=== PATIENT | male | born 1945 | race Caucasian/White ===

== ENCOUNTER 2023-03-06 13:30 | Outpatient (OUT) | payer MEDICARE, SELFPAY ==
[2023-03-06 14:09] LABS: Anion Gap 12.2; BUN Creatinine Ratio 10.2; Carbon Dioxide 28.2 mmol/L (21.0-32.0); Chloride 103 mmol/L (98-107); Estimated GFR (African America 52 (>=60); Estimated GFR (Non-African Ame 43 (>=60); Glucose 102 mg/dL (74-106); Potassium 4.4 mmol/L (3.5-5.1); Sodium 139 mmol/L (136-145)
== END 2023-03-06 13:31 | disposition home or self-care (01) ==
LOC: LAB 13:33
PROVIDERS: PCP Internal Medicine; Visit Provider Internal Medicine
DX: N18.32 Chronic kidney disease, stage 3b (principal)
CPT/HCPCS: 36415; 80048

== ENCOUNTER 2023-09-04 09:05 | Outpatient (OUT) | payer MEDICARE, SELFPAY ==
[2023-09-04 10:31] LABS: Basophils Absolute Auto 0.1 10^3/uL (0.0-0.1); Basophils Percent Auto 1.1 % (0.2-2.0); Eosinophils Absolute Auto 0.2 10^3/uL (0.0-0.7); Eosinophils Percent Auto 2.7 % (0.9-7.0); Hematocrit 46.4 % (42.0-54.0); Hemoglobin 15.2 g/dL (14.0-18.0); Immature Granulocytes Abs Auto 0.01 10^3/uL (0.00-0.03); Immature Granulocytes Pct Auto 0.1 % (0.0-0.5); Lymphocytes Percent Auto 28.1 % (20.5-60.0); Mean Corpuscular HGB Conc 32.8 g/dL (29.9-35.2); Mean Corpuscular Hemoglobin 29.2 pg (25.9-34.0); Mean Corpuscular Volume 89.1 fL (80.0-94.0); Mean Platelet Volume 9.6 fL (9.5-13.5); Monocytes Absolute Auto 0.7 10^3/uL (0.3-0.8); Platelet Count 200 10^3/uL (150-450); Red Blood Count 5.21 10^6/uL (4.70-6.10); Red Cell Distribution Width 13.8 % (11.0-15.0)
[2023-09-04 11:14] LABS: Anion Gap 16.6; Carbon Dioxide 23.6 mmol/L (21.0-32.0); Chloride 106 mmol/L (98-107); Potassium 4.2 mmol/L (3.5-5.1); Sodium 142 mmol/L (136-145)
[2023-09-04 11:15] LABS: Alanine Aminotransferase 36 U/L (16-63); Albumin Globulin Ratio 0.9; Albumin Level 3.5 g/dL (3.4-5.0); Alkaline Phosphatase 120 U/L (46-116); Aspartate Amino Transferase 21 U/L (15-37); BUN Creatinine Ratio 11.5; Bilirubin Total 1.2 mg/dL (0.2-1.0); Calcium 9.3 mg/dL (8.5-10.1); Cholesterol 116 mg/dL (<=200); Estimated GFR (African America 42 (>=60); Estimated GFR (Non-African Ame 34 (>=60); Globulin 3.8 g/dL; Glucose 115 mg/dL (74-106); Total Protein 7.3 g/dL (6.4-8.2); Triglycerides 169 mg/dL (<=150); VLDL CHOLESTEROL 33.8 mg/dL
[2023-09-04 11:16] LABS: Chol HDL Ratio 3.5; HDL Cholesterol 33 mg/dL (40-60); Thyroid Stimulating Hormone 0.864 uIU/mL (0.358-3.740)
== END 2023-09-04 09:06 | disposition home or self-care (01) ==
LOC: LAB 09:09
PROVIDERS: PCP Internal Medicine; Visit Provider Internal Medicine
DX: N18.32 Chronic kidney disease, stage 3b (principal); I25.10 Atherosclerotic heart disease of native coronary artery without angina pectoris; E06.3 Autoimmune thyroiditis; Z12.5 Encounter for screening for malignant neoplasm of prostate; I12.9 Hypertensive chronic kidney disease with stage 1 through stage 4 chronic kidney disease, or unspecified chronic kidney disease
CPT/HCPCS: 36415; 80053; 80061; 84443; 85025; G0103

== ENCOUNTER 2023-10-26 09:08 | Outpatient (OUT) | payer MEDICARE, SELFPAY ==
[2023-10-26 10:55] LABS: Bilirubin Urine NEGATIVE (NEGATIVE); Blood Urine NEGATIVE (NEGATIVE); Clarity Urine CLEAR (CLEAR); Color Urine LT. YELLOW (YELLOW); Glucose Urine UA NEGATIVE (NEGATIVE); Ketones Urine NEGATIVE (NEGATIVE); Leukocyte Esterase Urine NEGATIVE (NEGATIVE); Nitrite Urine NEGATIVE (NEGATIVE); Protein Urine NEGATIVE (NEG/TRACE); Specific Gravity Urine 1.025 (1.005-1.025); Urobilinogen Urine 0.2 EU/dL (0.2-1.0)
[2023-10-26 11:41] LABS: Anion Gap 14.8; BUN Creatinine Ratio 20.1; Calcium 9.1 mg/dL (8.5-10.1); Carbon Dioxide 24.4 mmol/L (21.0-32.0); Chloride 106 mmol/L (98-107); Estimated GFR (African America 48 (>=60); Estimated GFR (Non-African Ame 40 (>=60); Glucose 114 mg/dL (74-106); Potassium 4.2 mmol/L (3.5-5.1); Sodium 141 mmol/L (136-145)
[2023-10-26 14:34] LABS: Total Protein Urine Random 27.5 mg/dL (<=11.9)
== END 2023-10-26 09:09 | disposition home or self-care (01) ==
LOC: LAB 09:10
PROVIDERS: PCP Internal Medicine; Visit Provider Internal Medicine
DX: N18.32 Chronic kidney disease, stage 3b (principal)
CPT/HCPCS: 36415; 80048; 81003; 82570; 84156

== ENCOUNTER 2024-02-20 08:53 | Outpatient (OUT) | payer MEDICARE, SELFPAY ==
--- OUTSIDE RECORDS SUMMARY | 2024-02-20 09:17 | XMS_ITS | CCD ---
Author Organization [facility] Partnership [facility] Care Team Providers Care License Examiner Name Role Phone DR JACOB HOOK Primary Care Unavailable ANNELIESE, DR HEATHER Corona Admitting Unavailable ANNELIESE, DR HEATHER Corona Consulting Unavailable ANNELIESE, DR HEATHER Corona Attending Unavailable TAMIKA SANTIZO Consulting Unavailable WILD, DR GREENE Admitting Unavailable WILD, DR GREENE Primary Care Unavailable WILD, DR GREENE Consulting Ariela HOOK, DR GREENE Attending Jacob Blanco Unavailable Medications Current Medications Medication Drug Class(es) Dates Sig (Normalized) Sig (Original) atorvastatin 40 mg oral tablet (10 sources) HMG-CoA Reductase Inhibitor Start: 09-03-2023 take 40 mg by mouth once daily Atorvastatin Active 40 MG PO Daily September 03, 2023 12:00am take 1 tablet by chitra th every twenty-four hours Atorvastatin Calcium 40 MG 1 tablet Oral ly Once a day for 90 days Active azithromycin 250 mg oral tablet (4 sources) Macrolide Antimicrobial Start: 03-26-2023 Azithromycin 250 MG as directed Orally daily for 5 days Mar, Active levothyroxine sodium 0.137 mg oral capsule (10 sources) l-Thyroxine Start: 09-03-2023 take 137 ug by mouth once daily Levothyroxine Active 137 MCG PO Daily September 03, 2023 12:00am take 1 tablet by mouth once criss y Levothyroxine Sodium 137 MCG TAKE 1 TABLET BY MOUTH ONCE DAILY ON AN EMPTY STOMACH for 90 Active take 1 tablet by mouth once criss y Levothyroxine Sodium 137 MCG TAKE 1 TABLET BY MOUTH ONCE DAILY ON AN EMPTY STOMACH for 90 Active losartan potassium 25 mg oral tablet (10 sources) Angiotensin 2 Receptor Fernando Start: 09-03-2023 take 25 mg by mouth twice daily Losartan Active 25 MG PO Twice daily September 03, 2023 12:00am take 1 tablet by mouth twice lenore ly Losartan Potassium 25 MG 1 tablet Orally twice daily for 90 days Active take 1 tablet by chitra th every twenty-four hours Losartan Potassium 25 MG 1 tablet Orally Once a day for 90 days Active 24 hr metoprolol succinate 25 mg extended release oral tablet (10 sources) beta-Adrenergic Fernando Start: 09-03-2023 take 25 mg by mouth once daily Metoprolol Succinate Active 25 MG PO Daily September 03, 2023 12:00am take 1 tablet by mouth once criss y Metoprolol Succinate ER 25 MG Take 1 tablet by mouth once daily Active sildenafil 20 mg oral tablet (10 sources) Phosphodiesterase 5 Inhibitor Start: 09-03-2023 take 40 mg by mouth once daily Sildenafil (Pulm.Hypertension) Active 40 MG PO Daily September 03, 2023 12:00am Sildenafil Citra te 20 MG TAKE 2 TABLETS BY MOUTH NEEDED FOR ERECTILE DYSFUNCTION FOR 30 DAYS for 30 Active take 1 tablet by chitra th every twenty-four hours Sildenafil Citrate 20 MG 1 tablet Orally Once a day Active Completed/Discontinued Medications Medication Drug Class(es) Dates Sig (Normalized) Sig (Original) Suprep Bowel Prep Kit 17.5-3.13-1.6 GM/180ML (18 sources) Start: 07-22-2018 Suprep Bowel Prep Kit 17.5-3.13-1.6 GM/180ML 177ml bottle at 4pm, 177ml bottle at 11pm the day prior to colonosopy Orally Twice a day for 1 day(s) Jul, Not-Taking/PRN Start: 07-22-2018 Suprep Bowel P rep Kit 17.5-3.13-1.6 GM/180ML 177ml bottle at 4pm, 177ml bottle at 11pm the day prior to colonosopy Orally Twice a day for 1 day(s) Jul, Not-Taking Start: 07-08-2018 Suprep Bowel P rep Kit 17.5-3.13-1.6 GM/180ML 177ml bottle at 4pm, 177ml bottle at 11pm the day prior to colonoscopy Orally Twice a day for 1 day(s) Jun, Not-Taking/PRN Start: 07-08-2018 Suprep Bowel P rep Kit 17.5-3.13-1.6 GM/180ML 177ml bottle at 4pm, 177ml bottle at 11pm the day prior to colonoscopy Orally Twice a day for 1 day(s) Jun, Not-Taking Problems Active Problems Problem Classification Problem Date Documented Date Episodic/Chronic Chronic kidney disease (11 sources) Chronic kidney disease stage 3B ; Translations: [Stage 3b chronic kidney disease] 09-03-2023 Chronic Coronary atherosclerosis and other heart disease (13 sources) Coronary arteriosclerosis; Translations: [Atherosclerotic heart disease of hughes coronary artery without angina pectoris] Chronic Disorders of lipid metabolism (20 sources) Pure hypercholesterolemia, unspecified; Translations: [Pure hypercholesterolemia] Onset: 08-29-2022 Chronic Esophageal disorders (6 sources) Gastro-esophageal reflux disease with esophagitis; Translations: [Gastroesophageal reflux disease with esophagitis without hemorrhage] 09-08-2023 Chronic Essential hypertension (16 sources) Essential (primary) hypertension; Translations: [Essential hypertension] Onset: 09-04-2022 Chronic Genitourinary symptoms and ill-defined conditions (2 sources) Nocturia Episodic Hyperplasia of prostate (13 sources) Nocturia due to benign prostatic hypertrophy; Translations: [Benign prostatic hyperplasia with lower urinary tract symptoms] Chronic Nonspecific chest pain (9 sources) Precordial pain; Translations: [Precordial pain] Episodic Other aftercare (2 sources) 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; Translations: [[facility] CURRENT DRUG THERAPY] Onset: 09-04-2022 Episodic Other connective tissue disease (9 sources) Olecranon bursitis; Translations: [Olecranon bursitis, left elbow] Episodic Other connective tissue disease (1 source) Personal history of other diseases of the musculoskeletal system and connective tissue Episodic Other ear and sense organ disorders (1 source) Impacted cerumen, right ear Episodic Other screening for suspected conditions (not mental disorders or infectious disease) (4 sources) Encounter for screening for malignant neoplasm of prostate; Translations: [Patient encounter status] Onset: 09-04-2022 Episodic Other upper respiratory infections (1 source) Acute maxillary sinusitis, unspecified Episodic Spondylosis; intervertebral disc disorders; other back problems (9 sources) Pain in thoracic spine; Translations: [Pain in thoracic spine] Episodic Substance-related disorders (9 sources) Tobacco user; Translations: [Nicotine dependence, cigarettes, in remission] Chronic Thyroid disorders (20 sources) Autoimmune thyroiditis; Translations: [Autoimmune thyroiditis] Onset: 09-04-2022 Chronic Past or Other Problems Problem Classification Problem Date Documented Date Episodic/Chronic Abdominal pain (3 sources) Lower abdominal pain, unspecified; Translations: [LOWER ABDOMINAL PAIN UNSPECIFIED] Onset: 05-06-2022 Episodic Calculus of urinary tract (1 source) Personal history of urinary calculi; Translations: [PERSONAL HISTORY OF URINARY CALCULI] Onset: 05-10-2022 Episodic Chronic kidney disease (3 sources) Chronic kidney disease Esophageal disorders (5 sources) Esophageal disorders; Translations: [Gastroesophageal reflux disease with esophagitis without hemorrhage] Other diseases of kidney and ureters (1 source) Hydronephrosis with renal and ureteral calculous obstruction; Translations: [HYDRONPHROS RENL AND URETRL CALCUL OBST] Onset: 05-10-2022 Episodic Results Test Name Value Interpretation Reference Range Facility Basophils Auto (Bld) [#/Vol] on 09-04-2023 Basophils (Bld) [#/Vol] 0.1 10 3/uL 0.0-0.1 [facility] Basophils/100 WBC Auto (Bld) on 09-04-2023 Basophils/100 WBC (Bld) 1.1 % 0.2-2.0 [facility] Cholesterol in LDL Calc [Mas s/Vol]on 09-04-2023 Cholesterol in LDL [Mass/Vol] 50.0 mg/dL [facility] Comment on above: <100 mg/dl [id number] 0-129 mg/dl NEAR OR ABOVE [id number] mg/dl BORDERLINE [id number] mg/dl HIGH>190 mg/dl VERY HIGH Cholesterol in VLDL Calc [Ma ss/Vol]on 09-04-2023 Cholesterol in VLDL [Mass/Vol] 33.8 mg/dL [facility] Eosinophils/100 WBC Auto (Bl d)on 09-04-2023 Eosinophils/100 WBC (Bld) 2.7 % 0.9-7.0 [facility] Erythrocyte distribution wid th Auto (RBC) [Ratio]on 09-04-2023 Erythrocyte distribution width (RBC) [Ratio] 13.8 % 11.0-15.0 [facility] Estimated glomerular filtrat ion rate (GFR) non- Americanon 09-04-2023 GFR/1.73 sq M.predicted among non-blacks MDRD (S/P/Bld) [Vol rate/Area] 34 mL/min/{1.73_m2} >=60 [facility] Globulin Calc (S) [Mass/Vol] on 09-04-2023 Globulin (S) [Mass/Vol] 3.8 g/dL [facility] Hematocrit Auto (Bld) [Volum e fraction]on 09-04-2023 Hematocrit (Bld) [Volume fraction] 46.4 % 42.0-54.0 [facility] Hemoglobin [Mass/volume] in Bloodon 09-04-2023 Hemoglobin (Bld) [Mass/Vol] 15.2 g/dL 14.0-18.0 [facility] Laboratory - Chemistry and C hemistry - challengeon 09-04-2023 Albumin [Mass/Vol] 3.5 g/dL 3.4-5.0 [facility] ALP [Catalytic activity/Vol] 120 U/L 46-116 [facility] ALT [Catalytic activity/Vol] 36 U/L 16-63 [facility] AST [Catalytic activity/Vol] 21 U/L 15-37 [facility] Bilirubin [Mass/Vol] 1.2 mg/dL 0.2-1.0 [facility] Calcium [Mass/Vol] 9.3 mg/dL 8.5-10.1 [facility] Chloride [Moles/Vol] 106 mmol/L 98-107 [facility] Cholesterol [Mass/Vol] 116 mg/dL <=200 [facility] Cholesterol in HDL [Mass/Vol] 33 mg/dL 40-60 [facility] Comment on above: > or =60 mg/dl - LOW CARDIOVASCULAR RISK<40 mg/dl - HIGH CARDIOVASCULAR RISK CO2 [Moles/Vol] 23.6 mmol/L 21.0-32.0 [facility] Creatinine [Mass/Vol] 1.91 mg/dL 0.70-1.30 [facility] GFR/1.73 sq M.predicted MDRD (S/P/Bld) [Vol rate/Area] 42 mL/min/{1.73_m2} >=60 [facility] Glucose [Mass/Vol] 115 mg/dL 74-106 [facility] Potassium [Moles/Vol] 4.2 mmol/L 3.5-5.1 [facility] Protein [Mass/Vol] 7.3 g/dL 6.4-8.2 [facility] Sodium [Moles/Vol] 142 mmol/L 136-145 [facility] Triglyceride [Mass/Vol] 169 mg/dL <=150 [facility] TSH Qn 0.864 m[IU]/L 0.358-3.740 [facility] Urea nitrogen [Mass/Vol] 22.0 mg/dL 7.0-18.0 [facility] Urea nitrogen/Creatinine [Mass ratio] 11.5 mg/mg [facility] Laboratory - Hematology and Cell countson 09-04-2023 Immature granulocytes/100 WBC (Bld) 0.1 % 0.0-0.5 [facility] Leukocytes [#/volume] correc zach for nucleated erythrocytes in Blood by Automated counon 09-04-2023 WBC corrected for nucl RBC Auto (Bld) [#/Vol] 7.0 10 3/uL 4.0-11.0 [facility] Lymphocytes Auto (Bld) [#/Vo l]on 09-04-2023 Lymphocytes (Bld) [#/Vol] 2.0 10 3/uL 1.2-3.8 [facility] Lymphocytes/100 WBC Auto (Bl d)on 09-04-2023 Lymphocytes/100 WBC (Bld) 28.1 % 20.5-60.0 [facility] MCH Auto (RBC) [Entitic mass ]on 09-04-2023 MCH (RBC) [Entitic mass] 29.2 pg 25.9-34.0 [facility] MCHC Auto (RBC) [Mass/Vol]on 09-04-2023 MCHC (RBC) [Mass/Vol] 32.8 g/dL 29.9-35.2 [facility] MCV Auto (RBC) [Entitic vol] on 09-04-2023 MCV (RBC) [Entitic vol] 89.1 fL 80.0-94.0 [facility] Monocytes Auto (Bld) [#/Vol] on 09-04-2023 Monocytes (Bld) [#/Vol] 0.7 10 3/uL 0.3-0.8 [facility] Monocytes/100 WBC Auto (Bld) on 09-04-2023 Monocytes/100 WBC (Bld) 10.0 % 1.7-12.0 [facility] Neutrophils Auto (Bld) [#/Vo l]on 09-04-2023 Neutrophils (Bld) [#/Vol] 4.0 10 3/uL 1.4-6.5 [facility] Neutrophils/100 WBC Auto (Bl d)on 09-04-2023 Neutrophils/100 WBC (Bld) 58.0 % 43.0-75.0 [facility] No Panel Informationon 09-03 Eosinophils # (Auto) 0.2 10 3/uL 0.0-0.7 [facility] Immature Granulocyte # (Auto) 0.01 10 3/uL 0.00-0.03 [facility] Prostate Specific Antigen Screen 1.90 ng/mL <=4.00 [facility] Platelet mean volume Auto (B ld) [Entitic vol]on 09-04-2023 Platelet mean volume (Bld) [Entitic vol] 9.6 fL 9.5-13.5 [facility] Platelets Auto (Bld) [#/Vol] on 09-04-2023 Platelets (Bld) [#/Vol] 200 10 3/uL 150-450 [facility] RBC Auto (Bld) [#/Vol]on RBC (Bld) [#/Vol] 5.21 10 6/uL 4.70-6.10 [facility] Serum or plasma albumin/glob ulin mass ratioon 09-04-2023 Albumin/Globulin [Mass ratio] 0.9 {ratio} [facility] Serum or plasma anion gap de terminationon 09-04-2023 Anion gap [Moles/Vol] 16.6 mmol/L [facility] Serum or plasma total choles terol/high density lipoprotein (HDL) cholesterol mass rolf 09-04-2023 Cholesterol.total/C holesterol in HDL [Mass ratio] 3.5 {ratio} [facility] Comment on above: 3.3 - 4.4 LOW RISK4. 4 - 7.1 AVERAGE RISK7.1 - 11.0 MODERATE RISK>11.0 HIGH RISK CBC AUTO DIFFon 08-29-2022 BASO # 0.1 103/ul Normal 0.0-0.1 [facility] Comment on above: Performed By: #### C BC #### [facility] [address] [place] [address] Dr. Mj Mendoza Basophils/100 WBC (Bld) 1.6 % Normal 0.2-2.0 [facility] Comment on above: Performed By: #### C BC #### [facility] [address] [place] [address] Dr. Mj Mendoza EO # 0.3 103/ul Normal 0.0-0.7 [facility] Comment on above: Performed By: #### C BC #### [facility] [address] [place] [address] Dr. Mj Mendoza Eosinophils/100 WBC (Bld) 3.9 % Normal 0.9-7.0 [facility] Comment on above: Performed By: #### C BC #### [facility] [address] [place] [address] Dr. Mj Mendoza Erythrocyte distribution width (RBC) [Ratio] 13.9 % Normal 11.0-15.0 [facility] Comment on above: Performed By: #### C BC #### [facility] [address] [place] [address] Dr. Mj Mendoza Hematocrit (Bld) [Volume fraction] 49.6 % Normal 42.0-54.0 [facility] Comment on above: Performed By: #### C BC #### [facility] [address] [place] [address] Dr. Mj Mendoza Hemoglobin (Bld) [Mass/Vol] 16.7 g/dL Normal 14.0-18.0 [facility] Comment on above: Performed By: #### C BC #### [facility] [address] [place] [address] Dr. Mj Mendoza IG # 0.03 10e3/ul Normal 0.00-0.03 [facility] Comment on above: Performed By: #### C BC #### [facility] [address] [place] [address] Dr. Mj Mendoza IG % 0.5 % Normal 0.0-0.5 [facility] Comment on above: Performed By: #### C BC #### [facility] [address] [place] [address] Dr. Mj Mendoza LYMPH # 2.2 103/ul Normal 1.2-3.8 [facility] Comment on above: Performed By: #### C BC #### [facility] [address] [place] [address] Dr. Mj Mendoza Lymphocytes/100 WBC (Bld) 33.9 % Normal 20.5-60.0 [facility] Comment on above: Performed By: #### C BC #### [facility] [address] [place] [address] Dr. Mj Mendoza MANUAL DIFF REQ NO Normal [facility] Comment on above: Performed By: #### C BC #### [facility] [address] [place] [address] Dr. Mj Mendoza MCH (RBC) [Entitic mass] 29.2 pg Normal 25.9-34.0 [facility] Comment on above: Performed By: #### C BC #### [facility] [address] [place] [address] Dr. Mj Mendoza MCHC (RBC) [Mass/Vol] 33.7 g/dL Normal 29.9-35.2 [facility] Comment on above: Performed By: #### C BC #### [facility] [address] [place] [address] Dr. Mj Mendoza MCV (RBC) [Entitic vol] 86.9 fL Normal 80.0-94.0 [facility] Comment on above: Performed By: #### C BC #### [facility] [address] [place] [address] Dr. Mj Mendoza MONO # 0.7 103/ul Normal 0.3-0.8 [facility] Comment on above: Performed By: #### C BC #### [facility] [address] [place] [address] Dr. Mj Mendoza Monocytes/100 WBC (Bld) 10.7 % Normal 1.7-12.0 [facility] Comment on above: Performed By: #### C BC #### [facility] [address] [address] [address] Mj Mendoza NEUT # 3.1 103/ul Normal 1.4-6.5 [facility] Comment on above: Performed By: #### C BC #### [facility] [address] [address] [address] Mj Mendoza Neutrophils/100 WBC (Bld) 49.4 % Normal 43.0-75.0 [facility] Comment on above: Performed By: #### C BC #### [facility] [address] [place] [address] Dr. Mj Mendoza Platelet mean volume (Bld) [Entitic vol] 8.8 fL Critically low 9.5-13.5 [facility] Comment on above: Performed By: #### C BC #### [facility] [address] [place] [address] Dr. Mj Mendoza PLT 193 103/ul Normal 150-450 [facility] Comment on above: Performed By: #### C BC #### [facility] [address] [place] [address] Dr. Mj Mendoza RBC 5.71 106/ul Normal 4.70-6.10 [facility] Comment on above: Performed By: #### C BC #### [facility] [address] [place] [address] Dr. Mj Mendoza WBC 6.3 103/ul Normal 4.0-11.0 [facility] Comment on above: Performed By: #### C BC #### [facility] [address] [place] [address] Dr. Mj Mendoza LIPID PROFILEon 08-29-2022 CHOL-HDL RATIO NORM SEE BELOW Normal [facility] Comment on above: Result Comment: 3.3 - 4.4 LOW RISK 4.4 - 7.1 AVERAGE RISK 7.1 - 11.0 MODERATE RISK >11.0 HIGH RISK Performed By: #### L IPID, ALT, TSH, BMP #### [facility] [address] [place] [address] Dr. Mj Mendoza Cholesterol [Mass/Vol] 144 mg/dL Normal <=200 [facility] Comment on above: Performed By: #### L IPID, ALT, TSH, BMP #### [facility] [address] [address] [address] Mj Mendoza Cholesterol in HDL [Mass/Vol] 36 mg/dL Critically low 40-60 [facility] Comment on above: Performed By: #### L IPID, ALT, TSH, BMP #### [facility] [address] [address] [address] Mj Mendoza Cholesterol in LDL [Mass/Vol] 71.8 mg/dL Normal [facility] Comment on above: Performed By: #### L IPID, ALT, TSH, BMP #### [facility] [address] [place] [address] Dr. Mj Mendoza Cholesterol.total/C holesterol in HDL [Mass ratio] 4.0 {ratio} Normal [facility] Comment on above: Performed By: #### L IPID, ALT, TSH, BMP #### [facility] [address] [place] [address] Dr. Mj Mendoza HDL NORMAL > or = 60 mg/dl - LO W CARDIOVASCULAR RISK <40 mg/dl - HIGH CARDIOVASCULAR RISK Normal [facility] Comment on above: Performed By: #### L IPID, ALT, TSH, BMP #### [facility] [address] [place] [address] Dr. Mj Mendoza LDL CALC NORMAL SEE BELOW Normal [facility] Comment on above: Result Comment: <100 mg/dl OPTIMAL 100 - 129 mg/dl NEAR OR ABOVE OPTIMAL 130 - 159 mg/dl BORDERLINE HIGH 160 - 189 mg/dl HIGH >190 mg/dl VERY HIGH Performed By: #### L IPID, ALT, TSH, BMP #### [facility] [address] [place] [address] Dr. Mj Mendoza Triglyceride [Mass/Vol] 181 mg/dL Critically high <=150 [facility] Comment on above: Performed By: #### L IPID, ALT, TSH, BMP #### [facility] [address] [place] [address] Dr. Mj Mendoza VLDL CALC 36.2 mg/dL Normal [facility] Comment on above: Performed By: #### L IPID, ALT, TSH, BMP #### [facility] [address] [place] [address] Dr. Mj Mendoza PROF CHEM 8 (BAS METB)on Anion gap [Moles/Vol] 10.0 mmol/L Normal [facility] Comment on above: Performed By: #### L IPID, ALT, TSH, BMP #### [facility] [address] [place] [address] Dr. Mj Mendoza Calcium [Mass/Vol] 9.2 mg/dL Normal 8.5-10.1 [facility] Comment on above: Performed By: #### L IPID, ALT, TSH, BMP #### [facility] [address] [place] [address] Dr. Mj Mendoza Chloride [Moles/Vol] 105 mmol/L Normal 98-107 [facility] Comment on above: Performed By: #### L IPID, ALT, TSH, BMP #### [facility] [address] [place] [address] Dr. Mj Mendoza CO2 [Moles/Vol] 27.2 mmol/L Normal 21.0-32.0 [facility] Comment on above: Performed By: #### L IPID, ALT, TSH, BMP #### [facility] [address] [place] [address] Dr. Mj Mendoza Creatinine [Mass/Vol] 1.67 mg/dL Critically high 0.70-1.30 [facility] Comment on above: Performed By: #### L IPID, ALT, TSH, BMP #### [facility] [address] [address] [address] Mj Mendoza EGFR-AF [place] 49 mL/min/1.73m2 Critically low >=60 [facility] Comment on above: Performed By: #### L IPID, ALT, TSH, BMP #### [facility] [address] [address] [address] Mj Mendoza EGFR-NON AF [place] 40 mL/min/1.73m2 Critically low >=60 [facility] Comment on above: Performed By: #### L IPID, ALT, TSH, BMP #### [facility] [address] [place] [address] Dr. Mj Mendoza Glucose [Mass/Vol] 115 mg/dL Critically high 74-106 [facility] Comment on above: Performed By: #### L IPID, ALT, TSH, BMP #### [facility] [address] [place] [address] Dr. Mj Mendoza Potassium [Moles/Vol] 4.2 mmol/L Normal 3.5-5.1 [facility] Comment on above: Performed By: #### L IPID, ALT, TSH, BMP #### [facility] [address] [place] [address] Dr. Mj Mendoza Sodium [Moles/Vol] 138 mmol/L Normal 136-145 [facility] Comment on above: Performed By: #### L IPID, ALT, TSH, BMP #### [facility] [address] [place] [address] Dr. Mj Mendoza Urea nitrogen [Mass/Vol] 23.0 mg/dL Critically high 7.0-18.0 [facility] Comment on above: Performed By: #### L IPID, ALT, TSH, BMP #### [facility] [address] [place] [address] Dr. Mj Mendoza Urea nitrogen/Creatinine [Mass ratio] 13.8 mg/mg Normal [facility] Comment on above: Performed By: #### L IPID, ALT, TSH, BMP #### [facility] [address] [place] [address] Dr. Mj Mendoza SGPTon 08-29-2022 ALT [Catalytic activity/Vol] 38 U/L Normal 16-63 [facility] Comment on above: Performed By: #### L IPID, ALT, TSH, BMP #### [facility] [address] [place] [address] Dr. Mj Mendoza TSHon 08-29-2022 TSH 1.932 uIU/mL Normal 0.358-3.740 [facility] Comment on above: Performed By: #### L IPID, ALT, TSH, BMP #### [facility] [address] ABD/PELVIS WO CONon 05-07 CT ABD/PELVIS WO CON EXAMINATION: CT ABD/PELVIS WO CON, 05/06/2022 9:28 PM EST HISTORY: CALCULUS OF KIDNEY COMPARISON: 11/01/2018 TECHNIQUE: CT scan of the abdomen and pelvis was performed without IV contrast. Multiplanar reformats were generated. CT dose reduction technique was used, including Automated Exposure Control. FINDINGS: Exam is limited by lack of contrast. Lower thorax: Cardiomegaly. Coronary arterial calcifications. Small sliding hiatal hernia. Previous sternotomy. Old abandoned epicardial leads. Mild bibasilar scarring or atelectasis. No sizable effusion. Liver: Mild hepatic steatosis. Biliary: Several small calcified gallstones without CT evidence for acute cholecystitis. No evidence of biliary dilatation. Spleen: Appears stable. Small linear calcification along its lateral aspect. Pancreas: Mild fatty infiltration, otherwise unremarkable Adrenals: Unremarkable. Kidneys and bladder: Left upper pole calculus measures 4 mm. Moderate left hydroureteronephrosis with a 3.4 mm calculus seen in the distal ureter close to the UVJ. There is mild left perinephric stranding. No right renal/ureteral calculi or right hydronephrosis. The bladder is mostly empty, grossly unremarkable. GI Tract: No evidence of obstruction. The appendix appears within normal limits. Fatty infiltration of the ileocecal valve. Mild/moderate stool throughout the colon. Several sigmoid region diverticula without evidence of acute inflammation. Lymph Nodes: No lymphadenopathy. Mesentery/peritoneum: No free fluid or free air. Retroperitoneum: No mass or fluid collection. Vasculature: Moderate atherosclerotic calcification of the abdominal aorta and branches. Ectasia of the infrarenal aorta up to 2.5 cm, similar to prior. Pelvis: No mass visible. Prostate is mildly prominent measuring 4.3 cm transverse. Bones/Soft Tissues: No clearly acute osseous abnormality. Degenerative changes of the SI joints with partial osseous bridging. Multilevel degenerative changes of the spine with moderate canal and neural foraminal stenoses at L4-L5 and L5-S1. No significant soft tissue abnormality visualized. IMPRESSION: 1. Moderate left hydroureteronephrosis with a 3.4 mm calculus seen in the distal ureter close to the UVJ. 2. Left upper pole 4 mm renal calculus. Mild left perinephric stranding. 3. Sigmoid diverticulosis without diverticulitis. 4. Cardiomegaly. Coronary arterial calcifications. Previous sternotomy. 5. Small sliding hiatal hernia. 6. Mild hepatic steatosis. 7. Cholelithiasis. No evidence of pericholecystic inflammation. 8. Moderate atherosclerotic calcification of the abdominal aorta and branches. Ectasia of the infrarenal aorta up to 2.5 cm, similar to prior. 9. Mildly prominent prostate gland. Clinical and PSA correlation recommended. 10. Other stable chronic and likely incidental findings, as described above. Electronically authenticated by: TAMIKA SANTIZO Date: 2022-05-06 23:26 Normal [facility] CBC AUTO DIFFon 05-06-2022 BASO # 0.1 103/ul Normal 0.0-0.1 [facility] Comment on above: Performed By: #### C BC #### [facility] [address] [place] [address] Dr. Mj Mendoza Basophils/100 WBC (Bld) 0.9 % Normal 0.2-2.0 [facility] Comment on above: Performed By: #### C BC #### [facility] [address] [place] [address] Dr. Mj Mendoza EO # 0.1 103/ul Normal 0.0-0.7 [facility] Comment on above: Performed By: #### C BC #### [facility] [address] [place] [address] Dr. Mj Mendoza Eosinophils/100 WBC (Bld) 1.8 % Normal 0.9-7.0 [facility] Comment on above: Performed By: #### C BC #### [facility] [address] [place] [address] Dr. Mj Mendoza Erythrocyte distribution width (RBC) [Ratio] 14.0 % Normal 11.0-15.0 [facility] Comment on above: Performed By: #### C BC #### [facility] [address] [place] [address] Dr. Mj Mendoza Hematocrit (Bld) [Volume fraction] 47.2 % Normal 42.0-54.0 [facility] Comment on above: Performed By: #### C BC #### [facility] [address] [place] [address] Dr. Mj Mendoza Hemoglobin (Bld) [Mass/Vol] 16.5 g/dL Normal 14.0-18.0 [facility] Comment on above: Performed By: #### C BC #### [facility] [address] [place] [address] Dr. Mj Mendoza IG # 0.01 10e3/ul Normal 0.00-0.03 [facility] Comment on above: Performed By: #### C BC #### [facility] [address] [place] [address] Dr. Mj Mendoza IG % 0.1 % Normal 0.0-0.5 [facility] Comment on above: Performed By: #### C BC #### [facility] [address] [place] [address] Dr. Mj Mendoza LYMPH # 1.8 103/ul Normal 1.2-3.8 [facility] Comment on above: Performed By: #### C BC #### [facility] [address] [place] [address] Dr. Mj Mendoza Lymphocytes/100 WBC (Bld) 23.0 % Normal 20.5-60.0 [facility] Comment on above: Performed By: #### C BC #### [facility] [address] [place] [address] Dr. Mj Mendoza MANUAL DIFF REQ NO Normal [facility] Comment on above: Performed By: #### C BC #### [facility] [address] [place] [address] Dr. Mj Mendoza MCH (RBC) [Entitic mass] 29.8 pg Normal 25.9-34.0 [facility] Comment on above: Performed By: #### C BC #### [facility] [address] [place] [address] Dr. Mj Mendoza MCHC (RBC) [Mass/Vol] 35.0 g/dL Normal 29.9-35.2 [facility] Comment on above: Performed By: #### C BC #### [facility] [address] [address] [address] Mj Mendoza MCV (RBC) [Entitic vol] 85.2 fL Normal 80.0-94.0 [facility] Comment on above: Performed By: #### C BC #### [facility] [address] [address] [address] Mj Mendoza MONO # 0.7 103/ul Normal 0.3-0.8 [facility] Comment on above: Performed By: #### C BC #### [facility] [address] [address] [address] Mj Mendoza Monocytes/100 WBC (Bld) 8.5 % Normal 1.7-12.0 [facility] Comment on above: Performed By: #### C BC #### [facility] [address] [address] [address] Mj Mendoza NEUT # 5.1 103/ul Normal 1.4-6.5 [facility] Comment on above: Performed By: #### C BC #### [facility] [address] [address] [address] Mj Mendoza Neutrophils/100 WBC (Bld) 65.7 % Normal 43.0-75.0 [facility] Comment on above: Performed By: #### C BC #### [facility] [address] [address] [address] Mj Mendoza Platelet mean volume (Bld) [Entitic vol] 9.1 fL Critically low 9.5-13.5 [facility] Comment on above: Performed By: #### C BC #### [facility] [address] [address] [address] Mj Mendoza PLT 195 103/ul Normal 150-450 [facility] Comment on above: Performed By: #### C BC #### [facility] [address] [address] [address] Mj Mendoza RBC 5.54 106/ul Normal 4.70-6.10 [facility] Comment on above: Performed By: #### C BC #### [facility] [address] [address] [address] Mj Mendoza WBC 7.8 103/ul Normal 4.0-11.0 [facility] Comment on above: Performed By: #### C BC #### [facility] [address] [place] [address] Dr. Mj Mendoza ER URINE PROFILEon 2 Bilirubin Ql (U) Negative Normal NEGATIVE [facility] Comment on above: Performed By: #### U MICRO, ERUR #### [facility] [address] [place] [address] Dr. Mj Mendoza Clarity (U) CLEAR Normal CLEAR [facility] Comment on above: Performed By: #### U MICRO, ERUR #### [facility] [address] [place] [address] Dr. Mj Mendoza Color (U) YELLOW Normal YELLOW [facility] Comment on above: Performed By: #### U MICRO, ERUR #### [facility] [address] [place] [address] Dr. Mj Mendoza ERUAHD A micrscopic examina tion will be performed if indicated. Normal [facility] Comment on above: Performed By: #### U MICRO, ERUR #### [facility] [address] [place] [address] Dr. Mj Mendoza Glucose Ql (U) Negative Normal NEGATIVE [facility] Comment on above: Performed By: #### U MICRO, ERUR #### [facility] [address] [address] [address] Mj Mendoza Hemoglobin Ql (U) MODERATE Abnormal NEGATIVE [facility] Comment on above: Performed By: #### U MICRO, ERUR #### [facility] [address] [place] [address] Dr. Mj Mendoza Ketones Ql (U) Negative Normal NEGATIVE [facility] Comment on above: Performed By: #### U MICRO, ERUR #### [facility] [address] [place] [address] Dr. Mj Mendoza LEUKOCYTES Negative Normal NEGATIVE [facility] Comment on above: Performed By: #### U MICRO, ERUR #### [facility] [address] [address] [address] Mj Mendoza Nitrite Ql (U) Negative Normal NEGATIVE [facility] Comment on above: Performed By: #### U MICRO, ERUR #### [facility] [address] [address] [address] Mj Mendoza pH (U) 5.0 [pH] Normal 5-9 [facility] Comment on above: Performed By: #### U MICRO, ERUR #### [facility] [address] [address] [address] Mj Mendoza SPEC GRAVITY >=1.030 Abnormal 1.005-<=1.025 [facility] Comment on above: Performed By: #### U MICRO, ERUR #### [facility] [address] [place] [address] Dr. Mj Mendoza UA PROTEIN TRACE Normal NEGATIVE/ TRACE [facility] Comment on above: Performed By: #### U MICRO, ERUR #### [facility] [address] [place] [address] Dr. Mj Mendoza UR MICRO IND INDICATED Normal [facility] Comment on above: Performed By: #### U MICRO, ERUR #### [facility] [address] [place] [address] Dr. Mj Mendoza Urobilinogen Qn (U) 0.2 {Mic'U}/dL Normal 0.2 - 1. 0 [facility] Comment on above: Performed By: #### U MICRO, ERUR #### [facility] [address] [place] [address] Dr. Mj Mendoza PROF 14(COMP METB)on 022 Albumin [Mass/Vol] 3.7 g/dL Normal 3.4-5.0 [facility] Comment on above: Performed By: #### C MP #### [facility] [address] [place] [address] Dr. Mj Mendoza Albumin/Globulin [Mass ratio] 1.0 {ratio} Normal [facility] Comment on above: Performed By: #### C MP #### [facility] [address] [address] [address] Mj Mendoza ALP [Catalytic activity/Vol] 135 U/L Critically high 46-116 [facility] Comment on above: Performed By: #### C MP #### [facility] [address] [address] [address] Mj Mendoza ALT [Catalytic activity/Vol] 47 U/L Normal 16-63 [facility] Comment on above: Performed By: #### C MP #### [facility] [address] [address] [address] Mj Mendoza Anion gap [Moles/Vol] 12.7 mmol/L Normal [facility] Comment on above: Performed By: #### C MP #### [facility] [address] [place] [address] Dr. Mj Mendoza AST [Catalytic activity/Vol] 22 U/L Normal 15-37 [facility] Comment on above: Performed By: #### C MP #### [facility] [address] [place] [address] Dr. Mj Mendoza Bilirubin [Mass/Vol] 0.7 mg/dL Normal 0.2-1.0 [facility] Comment on above: Performed By: #### C MP #### [facility] [address] [place] [address] Dr. Mj Mendoza Calcium [Mass/Vol] 9.0 mg/dL Normal 8.5-10.1 [facility] Comment on above: Performed By: #### C MP #### [facility] [address] [place] [address] Dr. Mj Mendoza Chloride [Moles/Vol] 103 mmol/L Normal 98-107 [facility] Comment on above: Performed By: #### C MP #### [facility] [address] [place] [address] Dr. Mj Mendoza CO2 [Moles/Vol] 23.1 mmol/L Normal 21.0-32.0 [facility] Comment on above: Performed By: #### C MP #### [facility] [address] [place], [place] [id number] Dr. Mj Mendoza Creatinine [Mass/Vol] 1.79 mg/dL Critically high 0.70-1.30 [facility] Comment on above: Performed By: #### C MP #### [facility] [address] [place] [address] Dr. Mj Mendoza EGFR-AF [place] 45 mL/min/1.73m2 Critically low >=60 [facility] Comment on above: Performed By: #### C MP #### [facility] [address] [address] [address] Mj Mendoza EGFR-NON AF [place] 37 mL/min/1.73m2 Critically low >=60 [facility] Comment on above: Performed By: #### C MP #### [facility] [address] [place] [address] Dr. Mj Mendoza Globulin (S) [Mass/Vol] 3.8 g/dL Normal [facility] Comment on above: Performed By: #### C MP #### [facility] [address] [place] [address] Dr. Mj Mendoza Glucose [Mass/Vol] 162 mg/dL Critically high 74-106 T [facility] Comment on above: Performed By: #### C MP #### [facility] [address] [place] [address] Dr. Mj Mendoza Potassium [Moles/Vol] 3.8 mmol/L Normal 3.5-5.1 [facility] Comment on above: Performed By: #### C MP #### [facility] [address] [address] [address] Mj Mendoza Protein [Mass/Vol] 7.5 g/dL Normal 6.4-8.2 [facility] Comment on above: Performed By: #### C MP #### [facility] [address] [place] [address] Dr. Mj Mendoza Sodium [Moles/Vol] 135 mmol/L Critically low 136-145 Th [place] Comment on above: Performed By: #### C MP #### [facility] [address] [place] [address] Dr. Mj Mendoza Urea nitrogen [Mass/Vol] 23.0 mg/dL Critically high 7.0-18.0 [facility] Comment on above: Performed By: #### C MP #### [facility] [address] [place] [address] Dr. Mj Mendoza Urea nitrogen/Creatinine [Mass ratio] 12.8 mg/mg Normal [facility] Comment on above: Performed By: #### C MP #### [facility] [address] [address] [address] Mj Mendoza URINE MICROSCOPIC ONLYon BACTERIA NONE SEEN Normal NONE SEEN [facility] Comment on above: Performed By: #### U MICRO, ERUR #### [facility] [address] [place] [address] Dr. Mj Mendoza Bacteria identified Cx Nom (U) NOT INDICATED Normal [facility] Comment on above: Performed By: #### U MICRO, ERUR #### [facility] [address] [place] [address] Dr. Mj Mendoza CAST NONE SEEN Normal NONE SEEN [facility] Comment on above: Performed By: #### U MICRO, ERUR #### [facility] [address] [place] [address] Dr. Mj Mendoza Crystals LM Nom (Urine sed) NONE SEEN Normal NONE SEEN [facility] Comment on above: Performed By: #### U MICRO, ERUR #### [facility] [address] [place] [address] Dr. Mj Mendoza Epithelial cells LM Ql (Urine sed) FEW Abnormal NONE SEEN /RARE [facility] Comment on above: Performed By: #### U MICRO, ERUR #### [facility] [address] [place] [address] Dr. Mj Mendoza MUCOUS TRACE Abnormal NONE SEEN [facility] Comment on above: Performed By: #### U MICRO, ERUR #### [facility] [address] [place] [address] Dr. Mj Mendoza RBC 2-5 Abnormal 0-2 [facility] Comment on above: Performed By: #### U MICRO, ERUR #### [facility] [address] [address] [address] Mj Mendoza WBC NONE SEEN Normal NONE SEEN [facility] Comment on above: Performed By: #### U MICRO, ERUR #### [facility] [address] [address] [address] Mj Mendoza Vital Signs Date Time Vital Sign Value Performing Clinician Facility 09-10-2023 09:36-0400 Body height 182.88 cm [facility] 09-10-2023 09:36-0400 Body mass index (BMI) [Ratio] 27.3 kg/m2 [facility] 09-10-2023 09:36-0400 Body weight 91.34 kg [facility] 09-10-2023 09:36-0400 Diastolic blood pressure 80 mm[Hg] [facility] 09-10-2023 09:36-0400 Heart rate 57 /min [facility] 09-10-2023 09:36-0400 Respiratory rate 12 /min [facility] 09-10-2023 09:36-0400 Systolic blood pressure 130 mm[Hg] [facility] 03-26-2023 15:00-0400 Body height 182.88 cm Jacob Ball Other [facility] Other 03-26-2023 15:00-0400 Body mass index (BMI) [Ratio] 27.61 kg/m2 Jacob Ball Other [facility] Other 03-26-2023 15:00-0400 Body weight 92.35 kg Jacob Ball Other [facility] Other 03-26-2023 15:00-0400 Diastolic blood pressure 70 mm[Hg] Jacob Ball Other [facility] Other 03-26-2023 15:00-0400 Respiratory rate 12 /min Jacob Ball Other [facility] Other 03-26-2023 15:00-0400 Systolic blood pressure 133 mm[Hg] Jacob Ball Other [facility] Other 03-06-2023 10:30-0400 Body height 182.88 cm Jacob Ball Other [facility] Other 03-06-2023 10:30-0400 Body mass index (BMI) [Ratio] 27.31 kg/m2 Jacob Ball Other [facility] Other 03-06-2023 10:30-0400 Body weight 91.36 kg Jacob Ball Other [facility] Other 03-06-2023 10:30-0400 Diastolic blood pressure 90 mm[Hg] Jacob Ball Other [facility] Other 03-06-2023 10:30-0400 Respiratory rate 12 /min Jacob Ball Other [facility] Other 03-06-2023 10:30-0400 Systolic blood pressure 145 mm[Hg] Jacob Ball Other [facility] Other 09-05-2022 14:30-0400 Body height 182.88 cm Jacob Ball Other [facility] Other 09-05-2022 14:30-0400 Body mass index (BMI) [Ratio] 28.1 kg/m2 Jacob Ball Other [facility] Other 09-05-2022 14:30-0400 Body weight 93.99 kg Jacob Ball Other [facility] Other 09-05-2022 14:30-0400 Diastolic blood pressure 98 mm[Hg] Jacob Ball Other [facility] Other 09-05-2022 14:30-0400 Respiratory rate 12 /min Jacob Hook Other [facility] Other 09-05-2022 14:30-0400 Systolic blood pressure 164 mm[Hg] Jacob Hook Other [facility] Other Encounters Encounter Date Encounter Type Care Provider Facility Start: 09-10-2023 End: 09-10-2023 ambulatory [facility] Work Phone: Start: 09-10-2023 End: 09-10-2023 Patient encounter procedure [facility] Work Phone: Start: 09-04-2023 Non-patient / Non-visit [facility] Work Phone: Start: 09-03-2023 Non-patient / Non-visit [facility] Work Phone: Start: 06-19-2023 End: 06-19-2023 ambulatory Jacob Hook Other [facility] Other Start: 06-19-2023 Telephone encounter Jacob Hook [facility] Start: 04-24-2023 End: 04-24-2023 ambulatory Jacob Hook Other [facility] Other Start: 04-24-2023 Telephone encounter Jacob Hook [facility] Start: 04-13-2023 End: 04-13-2023 ambulatory Jacob Hook Other [facility] Other Start: 04-13-2023 Nursing evaluation o f patient and report Jacob Hook [facility] Start: 03-26-2023 End: 03-26-2023 ambulatory Jacob Hook Other [facility] Other Start: 03-26-2023 Office outpatient vi sit 15 minutes Jacob Hook [facility] Start: 03-06-2023 End: 03-06-2023 ambulatory Jacob Hook Other [facility] Other Start: 03-06-2023 Office outpatient vi sit 25 minutes Jacob Hook [facility] Start: 12-13-2022 End: 12-13-2022 ambulatory Jacob Hook Other [facility] Other Start: 12-13-2022 Telephone encounter Jacob EM[facility] Start: 09-05-2022 End: 09-05-2022 ambulatory Jacob Hook Other [facility] Other Start: 09-05-2022 Patient encounter procedure Jacob Hook [facility] Start: 08-29-2022 End: 08-30-[address] JACOB HOOK Facility:[facility] Start: 08-27-2022 End: 08-27-2022 ambulatory Jacob Hook Other [facility] Other Start: 08-27-2022 Telephone encounter Jacob Hook [facility] Start: 05-06-2022 End: 05-07-[address] JACOB HOOK Facility:[facility] Procedures Date Procedure Procedure Detail Performing Clinician Start: 08-29-[address] ELI [place] Comment on above: Performed By: #### U MICRO, ERUR #### [facility] [address] [place] [address] Dr. Mj Mendoza Immunizations Immunization Date Immunization Notes Care Provider [facility] 04-13-2023 influenza, high dose seasonal, preservative-free Jacob Hook Other [facility] Other 04-13-2023 influenza virus vaccine, unspecified formulation [facility] 06-23-2022 zoster vaccine recombinant Jacob Hook Other [facility] 03-21-2022 COVID-19 Moderna (BIvalent) Jacob Hook Other [facility] 03-06-2022 influenza virus vaccine, split virus (incl. purified surface antigen) Jacob Hook Other [facility] Other 03-06-2022 influenza virus vaccine, unspecified formulation [facility] 02-24-2022 influenza, high dose seasonal, preservative-free Jacob Hook Other [facility] [facility] Other 02-24-2022 influenza virus vaccine, unspecified formulation [facility] 09-26-2021 COVID-19 Vaccine Moderna - Documentation Purposes Only Jacob Hook Other [facility] 04-19-2021 COVID-19 Vaccine Moderna - Documentation Purposes Only Jacob Hook Other [facility] 03-04-2021 influenza virus vaccine, split virus (incl. purified surface antigen) Jacob Hook Other [facility] Other 03-04-2021 influenza virus vaccine, unspecified formulation [facility] 09-08-2020 COVID-19 Vaccine Moderna - Documentation Purposes Only Jacob Hook Other [facility] 08-12-2020 COVID-19 Vaccine Moderna - Documentation Purposes Only Jacob Hook Other [facility] 03-23-2020 influenza virus vaccine, split virus (incl. purified surface antigen) Jacob Hook Other [facility] Other 03-23-2020 influenza virus vaccine, unspecified formulation [facility] 04-10-2019 influenza virus vaccine, split virus (incl. purified surface antigen) Jacob Hook Other [facility] Other 04-10-2019 influenza virus vaccine, unspecified formulation [facility] 03-27-2018 influenza virus vaccine, split virus (incl. purified surface antigen) Jacob Hook Other [employer] [facility] [facility] Other 03-27-2018 influenza virus vaccine, unspecified formulation [facility] 04-19-2017 influenza virus vaccine, split virus (incl. purified surface antigen) Jacob Hook Other [facility] Other 04-19-2017 influenza virus vaccine, unspecified formulation [facility] 05-02-2016 influenza virus vaccine, split virus (incl. purified surface antigen) Jacob Hook Other [facility] Other 05-02-2016 influenza virus vaccine, unspecified formulation [facility] 06-08-2015 diphtheria, tetanus toxoids and acellular pertussis vaccine, unspecified formulation Jacob Hook Other [facility] 06-08-2015 pneumococcal conjuga te vaccine, 13 valent Jacob Hook Other [facility] 03-18-2015 influenza virus vaccine, split virus (incl. purified surface antigen) Jacob Hook Other [facility] Other 03-18-2015 influenza virus vaccine, unspecified formulation [facility] 04-15-2014 influenza virus vaccine, split virus (incl. purified surface antigen) Jacob Hook Other [facility] Other 04-15-2014 influenza virus vaccine, unspecified formulation [facility] 04-22-2013 pneumococcal conjuga te vaccine, 7 valent Jacob Wild Other [facility] Other 04-22-2013 pneumococcal Conjuga te, unspecified formulation [facility] 04-11-2013 pneumococcal polysaccharide vaccine, 23 valent Jacob Hook Other [facility] 04-11-2013 tetanus and diphther ia toxoids, adsorbed, preservative free, for adult use (5 Lf of tetanus toxoid and 2 Lf of diphtheria toxoid) Jacob Hook Other [facility] 05-21-2012 zoster vaccine, live Ericaami jorge Wild Other [facility] Payers Date Payer Category Payer Medicare [id number] 1958 Unknown [id number] 1945 Unknown [id number] 1945 Unknown [id number] Unknown Regular Insurance [id number] Social History Date Type Detail Facility Sex Assigned At [facility] Other Start: 09-03-[address] [facility] Never smoked tobacco (finding) [facility] Start: 1945 Sex Assigned At Male F [facility] Evaluation note 06-19-2023 Note Date & Type Note Facility 06-19-2023 Evaluation note Encounter Date Diagnosis Assessment Notes Jun, Elevated cholesterol (ICD-10 - E78.00) [facility] Other Evaluation note 04-24-2023 Note Date & Type Note Facility 04-24-2023 Evaluation note Encounter Date Diagnosis Assessment Notes Apr, Autoimmune thyroiditis (ICD-10 - E06.3) [facility] Other Evaluation note 03-26-2023 Note Date & Type Note Facility 03-26-2023 Evaluation note Encounter Date Diagnosis Assessment Notes Mar, Acute non-recurrent maxillary sinusitis (ICD-10 - J01.00) Instructed to use Robitussin or Mucinex for cough, saline or Flonase NS for congestion, Tylenol for pain and fever. Mar, Impacted cerumen of right ear (ICD-10 - H61.21) Debrox q HS Irrigate clear on Sunday if desires. Avoid use of QTip [facility] Other Evaluation note 03-06-2023 Note Date & Type Note Facility 03-06-2023 Evaluation note Encounter Date Diagnosis Assessment Notes Feb, ASHD (arterioscleroti c heart disease) (ICD-10 - I25.10) This patient is stable without activity related CP, dyspnea or lightheadedness. They are instructed to continue exercise and AHA diet plan. Continue secondary prevention measures. Feb, Stage 3b chronic kidney disease (ICD-10 - N18.32) The patient is instructed on adequate control of hypertension and diabetes, if appropriate. They are also educated on the associated risks of NSAIDs and PPI use with kidney disease. They were instructed on adequate fluid balance and to avoid dehydration. Feb, Primary hypertension (ICD-10 - I10) This patient is instructed to consume a healthy, low-fat, low-salt diet. They are also encouraged to continue exercise to achieve/maintain a normal BMI. Patient is instructed on home BP measurements: - rest for 5 minutes w/o talking- positioned w/ feet on floor and arm supported- average best 2/3 readings w/ goal < 135/85 Increase Losartan to 25mg bid and update office in week Feb, Elevated cholesterol (ICD-10 - E78.00) Instructed on diet and exercise with continued statin therapy.Discussed the beneficial effects of lowering cholesterol in reducing the risk for cerebrovascular and cardiovascular disease. 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 - E06.3) Clinically euthyroid, yearly TSH Feb, Other specified hypothyroidism (ICD-10 - E03.8) Feb, Benign prostatic hyperplasia with lower urinary tract symptoms (ICD-10 - N40.1) Symtoms tolerable, yearly PSA and SONDRA Feb, Nocturia (ICD-10 - R35.1) [facility] Other Evaluation note 12-13-2022 Note Date & Type Note Facility 12-13-2022 Evaluation note Encounter Date Diagnosis Assessment Notes Nov, Primary hypertension (ICD-10 - I10) [facility] Other Evaluation note 09-05-2022 Note Date & Type Note Facility 09-05-2022 Evaluation note Encounter Date Diagnosis Assessment Notes Aug, ASHD (arteriosclerot ic heart disease) (ICD-10 - I25.10) This patient is stable without activity related CP, dyspnea or lightheadedness . They are instructed to continue exercise and AHA diet plan. Aug, Stage 3b chronic kidney disease (ICD-10 - N18.32) The patient is instructed on adequate control of hypertension and diabetes, if appropriate. They are also educated on the associated risks of NSAIDs and PPI use with kidney disease. They were instructed on adequate fluid balance and to avoid dehydration. Aug, Primary hypertension (ICD-10 - I10) This patient is instructed to consume a healthy, low-fat, low-salt diet. They are also encouraged to continue exercise to achieve/maintai n a normal BMI. Aug, Benign prostatic hyperplasia with lower urinary tract symptoms (ICD-10 - N40.1) Yearly PSA and SONDRA Aug, Autoimmune thyroiditis (ICD-10 - E06.3) Euthyroid, TSH yearly Aug, Medicare annual wellness visit, subsequent (ICD-10 - Z00.00) Personalized health advice was given to the beneficiary including a written plan for screenings discussed and provided. Advanced care planning reviewed and/or information given as requested. Additional counseling was provided here today in regards to, [ ]. The above visit was performed by [ ], under direct supervision of [ ]. Document reviewed and amended by provider signed below. Healthy diet and exercise. Reviewed age-appropriate preventive testing recommended. [facility] Other Evaluation note 08-27-2022 Note Date & Type Note Facility 08-27-2022 Evaluation note Encounter Date Diagnosis Assessment Notes Aug, Other specified hypothyroidism (ICD-10 - E03.8) Aug, Autoimmune thyroiditis (ICD-10 - E06.3) Aug, Primary hypertension (ICD-10 - I10) Aug, Elevated cholesterol (ICD-10 - E78.00) Aug, Screening PSA (prostate specific antigen) (ICD-10 - Z12.5) Aug, Nocturia (ICD-10 - R35.1) Aug, Benign prostatic hyperplasia with lower urinary tract symptoms (ICD-10 - N40.1) Aug, Hx of gout (ICD-10 - Z87.39) Aug, Stage 3b chronic kidney disease (ICD-10 - N18.32) Aug, High risk medication use (ICD-10 - Z79.899) [facility] Other Evaluation note Note Date & Type Note Facility Evaluation note No Information [facility] Other Evaluation note Note Date & Type Note Facility Evaluation note Diagnosis Onset Date ASHD (arteriosclerotic heart disease) acute GERD (gastroesophageal reflux disease) acute Hypothyroid acute Primary hypertension acute Screening PSA (prostate specific antigen) acute Stage 3b chronic kidney disease acute Medicare annual wellness visit, subsequent noneactive [facility] Work Phone: History general Narrative - Reported Note Date & Type Note Facility History general Narrative - Reported Type Medical History Other specified hypothyroidism Medical History Autoimmune thyroiditis Medical History Primary hypertension Medical History Elevated cholesterol Medical History Benign prostatic hyp erplasia with lower urinary tract symptoms Medical History Stage 3b chronic kidney disease Medical History ASHD (arteriosclerotic heart dis ease) Medical History Gastroesophageal ref lux disease with esophagitis without hemorrhage Medical History Hyperlipidemia type II Medical History Acute midline thoracic back pain Medical History Precordial pain Medical History Olecranon bursitis, left elbow Medical History Nicotine dependence, cigarettes, in remission Surgical History CABG, 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 Surgical History COLONOSCOPY 2019 Hospitalization History SEE SURGICAL HX [facility] Other Summary Purpose Family History No Family History Records Found Advance Directives Advance Directive Response Recorded Date/ Time Advance Directives No July 11, 2023 9:49am Chief Complaint and Reason for Visit Chief Complaint Amb Documentation Medicare Wellness Reason for Visit ASHD (arteriosclerot ic heart disease) GERD (gastroesophageal reflux disease) Hypothyroid Primary hypertension Screening PSA (prostate specific antigen) Stage 3b chronic kidney disease Medicare annual wellness visit, subsequent Additional Source Comments (unrecognized sect ion and content) No Status Records Found INFORMATION SOURCE (unrecogn ized section and content) DATE CREATED AUTHOR 09/05/2022 [facility] REASON FOR VISIT (unrecogniz ed section and content) FLU ShotRIGHT EAR PLUGGED6 [facility] Care Teams (unrecognized sec tion and content) Team Status: Active Member Role Status Dates Jacob Hook DO Primary Care Provider Active Team Status: Active Member Role Status Dates Jacob Hook DO Primary Care Provider Active Start: September 03, 2023 REENA Rodriguez Attending Provider Active St art: September 03, 2023 Team Status: Active Member Role Status Dates Jacob Hook DO Primary Care Provide r, Attending Provider Active Start: September 04, 2023 Team Status: Inactive Member Role Status Dates Jacob Hook DO Primary Care Provide r, Attending Provider Active Start: September 10, 2023 End: September 10, 2023 Goals (unrecognized section and content) Goals may be documented in a n alternate section FOR RECORDS PERTAINING TO PATIENTS WHO ARE OR HAVE BEEN ENROLLED IN A CHEMICAL DEPENDENCY/SUBSTANCEABUSE PROGRAM, SOME INFORMATION MAY BE OMITTED. This clinical summary was aggregated from multiple sources. Caution should be exercised in using it in the provision of clinical care. This summary normalizes information from multiple sources, and as a consequence, information in this document may materially change the coding, format and clinical context of patient data. In addition, data may be omitted in some cases. CLINICAL DECISIONS SHOULD BE BASED ON THE PRIMARY CLINICAL RECORDS. [facility] [employer] [facility] provides no warranty or guarantee of the accuracy or completeness of information in this document.
[2024-02-20 10:42] LABS: Anion Gap 12.9; BUN Creatinine Ratio 12.1; Calcium 9.2 mg/dL (8.5-10.1); Carbon Dioxide 24.1 mmol/L (21.0-32.0); Chloride 105 mmol/L (98-107); Estimated GFR (African America 49 (>=60); Estimated GFR (Non-African Ame 41 (>=60); Glucose 112 mg/dL (74-106); Sodium 138 mmol/L (136-145)
== END 2024-02-20 08:54 | disposition home or self-care (01) ==
LOC: LAB 08:55
PROVIDERS: PCP Internal Medicine; Visit Provider Internal Medicine
DX: N18.32 Chronic kidney disease, stage 3b (principal)
CPT/HCPCS: 36415; 80048

== ENCOUNTER 2024-05-05 06:29 | Emergency (ER) | payer MEDICARE, SELFPAY ==
[2024-05-05] VITALS (31 sets, daily range): BP systolic 155–194; BP diastolic 64–94; PULSE 59–61; TEMP 36.4–36.6; O2SAT 93–97; BMI 27.2
--- OUTSIDE RECORDS SUMMARY | 2024-05-05 06:41 | XMS_ITS | CCD ---
Author Organization [facility] Care Team Providers Care Cab Starter Name Role Phone DR JACOB HOOK Primary [...] Sig (Original) atorvastatin 40 mg oral tablet (11 sources) HMG-CoA Reductase Inhibitor Start: 09-03-2023 take [...] Active levothyroxine sodium 0.137 mg oral capsule (11 sources) l-Thyroxine Start: 09-03-2023 take 137 ug [...] Active losartan potassium 25 mg oral tablet (11 sources) Angiotensin 2 Receptor Fernando Start: 09-03-2023 [...] succinate 25 mg extended release oral tablet (12 sources) beta-Adrenergic Fernando Start: 09-12-2023 take 1 tablet by mouth once daily Metoprolol Succinate Active 0 .ROUTE .COMPLEX 90 September 12, 2023 6:09pm TAKE 1 TABLET BY MOUTH EVERYDAY Start: 09-03-2023 End: 09-12-2023 take 25 mg by mouth once daily Metoprolol Succinate Di scontinued 25 MG PO Daily September 03, 2023 12:00am September 12, 2023 6:09pm take 1 tablet by chitra th once daily Metoprolol Succinate ER 25 MG Take 1 tablet by mouth once daily Active sildenafil 20 mg oral tablet (12 sources) Phosphodiesterase 5 Inhibitor Start: 01-02-2024 take 2 tablets by mouth once daily as needed Sildenafil (Pulm.Hypertension) Active 0 .ROUTE .COMPLEX January 02, 2024 10:12am TAKE 2 TABLETS BY MOUTH DAILY NEEDED FOR ERECTILE DYSFUNCTION Start: 09-03-2023 End: 01-02-2024 take 40 mg by mouth once daily Sildenafil (Pulm.Hypertension) Discontinued 40 MG PO Daily September 03, 2023 12:00am January 02, 2024 10:12am Sildenafil Citra te 20 MG TAKE 2 [...] Date Documented Date Episodic/Chronic Chronic kidney disease (13 sources) Chronic kidney disease stage 3B ; Translations: [Stage 3b chronic kidney disease] 09-03-2023 Chronic Coronary atherosclerosis and other heart disease (15 sources) Coronary arteriosclerosis; Translations: [Atherosclerotic heart disease of [place] coronary artery without angina pectoris] Chronic Disorders of lipid metabolism (20 sources) Pure hypercholesterolemia, unspecified; Translations: [Pure hypercholesterolemia] Onset: 08-29-2022 Chronic Esophageal disorders (8 sources) Gastro-esophageal reflux disease with esophagitis; Translations: [Gastroesophageal reflux disease with esophagitis without hemorrhage] 09-08-2023 Chronic Essential hypertension (18 sources) Essential (primary) hypertension; Translations: [Essential hypertension] Onset: 09-04-2022 Chronic Genitourinary symptoms and ill-defined conditions (2 sources) Nocturia Episodic Hyperplasia of prostate (14 sources) Nocturia due to benign prostatic hypertrophy; Translations: [Benign prostatic hyperplasia with lower urinary tract symptoms] Chronic Nonspecific chest pain (9 sources) Precordial pain; Translations: [Precordial pain] Episodic Other aftercare (2 sources) Other culinary intern (current) drug therapy; Translations: [OTH SCRAPER MEAT CURRENT DRUG THERAPY] Onset: 09-04-2022 Episodic Other connective tissue disease (9 sources) Olecranon bursitis; Translations: [Olecranon bursitis, left elbow] Episodic Other connective tissue disease (1 source) Personal history of other diseases of the musculoskeletal system and connective tissue Episodic Other ear and sense organ disorders (1 source) Impacted cerumen, right ear Episodic Other screening for suspected conditions (not mental disorders or infectious disease) (5 sources) Encounter for screening for malignant neoplasm of prostate; Translations: [Patient encounter status] Onset: 09-04-2022 Episodic Other upper respiratory infections (1 source) Acute maxillary sinusitis, unspecified Episodic Spondylosis; intervertebral disc disorders; other back problems (9 sources) Pain in thoracic spine; Translations: [Pain in thoracic spine] Episodic Sprains and strains (1 source) Strain of muscle(s) and tendon(s) of the rotator cuff of unspecified shoulder, initial encounter; Translations: [Rotator cuff (capsule) sprain] 02-26-2024 Episodic Substance-related disorders (9 sources) Tobacco user; [...] Test Name Value Interpretation Reference Range Facility Estimated glomerular filtrat ion rate (GFR) non- Americanon 02-20-2024 GFR/1.73 sq M.predicted among non-blacks MDRD (S/P/Bld) [Vol rate/Area] 41 mL/min/{1.73_m2} Low >=60 [facility] Laboratory - Chemistry and C hemistry - challengeon 02-20-2024 Calcium [Mass/Vol] 9.2 mg/dL 8.5-10.1 [facility] Chloride [Moles/Vol] 105 mmol/L 98-107 [facility] CO2 [Moles/Vol] 24.1 mmol/L 21.0-32.0 [facility] Creatinine [Mass/Vol] 1.65 mg/dL High 0.70-1.30 [facility] GFR/1.73 sq M.predicted MDRD (S/P/Bld) [Vol rate/Area] 49 mL/min/{1.73_m2} Low >=60 [facility] Glucose [Mass/Vol] 112 mg/dL High 74-106 [facility] Potassium [Moles/Vol] 4.0 mmol/L 3.5-5.1 [facility] Sodium [Moles/Vol] 138 mmol/L 136-145 [facility] Urea nitrogen [Mass/Vol] 20.0 mg/dL High 7.0-18.0 [facility] Urea nitrogen/Creatinine [Mass ratio] 12.1 mg/mg [facility] Serum or plasma anion gap de terminationon 02-20-2024 Anion gap [Moles/Vol] 12.9 mmol/L [facility] Basophils Auto (Bld) [#/Vol] on 09-04-2023 Basophils (Bld) [#/Vol] 0.1 10 3/uL 0.0-0.1 [facility] Basophils/100 WBC Auto (Bld) on 09-04-2023 Basophils/100 WBC (Bld) 1.1 % 0.2-2.0 [facility] Cholesterol in LDL Calc [Mas s/Vol]on 09-04-2023 Cholesterol in LDL [Mass/Vol] 50.0 mg/dL [facility] Comment on above: <100 mg/dl [id number] 0-129 mg/dl NEAR OR ABOVE [id number] mg/dl BORDERLINE [id number] mg/dl HIGH>190 mg/dl VERY HIGH Cholesterol in VLDL Calc [Ma ss/Vol]on 09-04-2023 Cholesterol in VLDL [Mass/Vol] 33.8 mg/dL [facility] Eosinophils/100 WBC Auto (Bl d)on 09-04-2023 Eosinophils/100 WBC (Bld) 2.7 % 0.9-7.0 [facility] Erythrocyte distribution wid th Auto (RBC) [Ratio]on 09-04-2023 Erythrocyte distribution width (RBC) [Ratio] 13.8 % 11.0-15.0 [facility] Estimated glomerular filtrat ion rate (GFR) non- Americanon 09-04-2023 GFR/1.73 sq M.predicted among non-blacks MDRD (S/P/Bld) [Vol rate/Area] 34 mL/min/{1.73_m2} >=60 [facility] Globulin Calc (S) [Mass/Vol] on 09-04-2023 Globulin (S) [Mass/Vol] 3.8 g/dL [facility] Hematocrit Auto (Bld) [Volum e fraction]on 09-04-2023 Hematocrit (Bld) [Volume fraction] 46.4 % 42.0-54.0 [facility] Hemoglobin [Mass/volume] in Bloodon 09-04-2023 Hemoglobin (Bld) [Mass/Vol] 15.2 g/dL 14.0-18.0 [facility] Laboratory - Chemistry and C hemistry - challengeon 09-04-2023 Albumin [Mass/Vol] 3.5 g/dL 3.4-5.0 [facility] ALP [Catalytic activity/Vol] 120 U/L 46-116 [facility] ALT [Catalytic activity/Vol] 36 U/L 16-63 [facility] AST [Catalytic activity/Vol] 21 U/L 15-37 [facility] Bilirubin [Mass/Vol] 1.2 mg/dL 0.2-1.0 [facility] Calcium [Mass/Vol] 9.3 mg/dL 8.5-10.1 [facility] Chloride [Moles/Vol] 106 mmol/L 98-107 [facility] Cholesterol [Mass/Vol] 116 mg/dL <=200 [facility] Cholesterol in HDL [Mass/Vol] 33 mg/dL 40-60 [facility] Comment on above: > or =60 mg/dl - LOW CARDIOVASCULAR RISK<40 mg/dl - HIGH CARDIOVASCULAR RISK CO2 [Moles/Vol] 23.6 mmol/L 21.0-32.0 [facility] Creatinine [Mass/Vol] 1.91 mg/dL 0.70-1.30 [facility] GFR/1.73 sq M.predicted MDRD (S/P/Bld) [Vol rate/Area] 42 mL/min/{1.73_m2} >=60 [facility] Glucose [Mass/Vol] 115 mg/dL 74-106 [facility] Potassium [Moles/Vol] 4.2 mmol/L 3.5-5.1 [facility] Protein [Mass/Vol] 7.3 g/dL 6.4-8.2 [facility] Sodium [Moles/Vol] 142 mmol/L 136-145 [facility] Triglyceride [Mass/Vol] 169 mg/dL <=150 [facility] TSH Qn 0.864 m[IU]/L 0.358-3.740 [facility] Urea nitrogen [Mass/Vol] 22.0 mg/dL 7.0-18.0 [facility] Urea nitrogen/Creatinine [Mass ratio] 11.5 mg/mg [facility] Laboratory - Hematology and Cell countson 09-04-2023 Immature granulocytes/100 WBC (Bld) 0.1 % 0.0-0.5 [facility] Leukocytes [#/volume] correc zach for nucleated erythrocytes in Blood by Automated counon 09-04-2023 WBC corrected for nucl RBC Auto (Bld) [#/Vol] 7.0 10 3/uL 4.0-11.0 [facility] Lymphocytes Auto (Bld) [#/Vo l]on 09-04-2023 Lymphocytes (Bld) [#/Vol] 2.0 10 3/uL 1.2-3.8 [facility] Lymphocytes/100 WBC Auto (Bl d)on 09-04-2023 Lymphocytes/100 WBC (Bld) 28.1 % 20.5-60.0 [facility] MCH Auto (RBC) [Entitic mass ]on 09-04-2023 MCH (RBC) [Entitic mass] 29.2 pg 25.9-34.0 [facility] MCHC Auto (RBC) [Mass/Vol]on 09-04-2023 MCHC (RBC) [Mass/Vol] 32.8 g/dL 29.9-35.2 [facility] MCV Auto (RBC) [Entitic vol] on 09-04-2023 MCV (RBC) [Entitic vol] 89.1 fL 80.0-94.0 [facility] Monocytes Auto (Bld) [#/Vol] on 09-04-2023 Monocytes (Bld) [#/Vol] 0.7 10 3/uL 0.3-0.8 [facility] Monocytes/100 WBC Auto (Bld) on 09-04-2023 Monocytes/100 WBC (Bld) 10.0 % 1.7-12.0 [facility] Neutrophils Auto (Bld) [#/Vo l]on 09-04-2023 Neutrophils (Bld) [#/Vol] 4.0 10 3/uL 1.4-6.5 [facility] Neutrophils/100 WBC Auto (Bl d)on 09-04-2023 Neutrophils/100 WBC (Bld) 58.0 % 43.0-75.0 [facility] No Panel Informationon 09-03 Eosinophils # (Auto) 0.2 10 3/uL 0.0-0.7 [facility] Immature Granulocyte # (Auto) 0.01 10 3/uL 0.00-0.03 [facility] Prostate Specific Antigen Screen 1.90 ng/mL <=4.00 [facility] Platelet mean volume Auto (B ld) [Entitic vol]on 09-04-2023 Platelet mean volume (Bld) [Entitic vol] 9.6 fL 9.5-13.5 [facility] Platelets Auto (Bld) [#/Vol] on 09-04-2023 Platelets (Bld) [#/Vol] 200 10 3/uL 150-450 [facility] RBC Auto (Bld) [#/Vol]on RBC (Bld) [#/Vol] 5.21 10 6/uL 4.70-6.10 [facility] Serum or plasma albumin/glob ulin mass ratioon 09-04-2023 Albumin/Globulin [Mass ratio] 0.9 {ratio} [facility] Serum or plasma anion gap de terminationon 09-04-2023 Anion gap [Moles/Vol] 16.6 mmol/L [facility] Serum or plasma total choles terol/high density lipoprotein (HDL) cholesterol mass rolf 09-04-2023 Cholesterol.total/C holesterol in HDL [Mass ratio] 3.5 {ratio} [facility] Comment on above: 3.3 - 4.4 LOW RISK4. 4 - 7.1 AVERAGE RISK7.1 - 11.0 MODERATE RISK>11.0 HIGH RISK CBC AUTO DIFFon 08-29-2022 BASO # 0.1 103/ul Normal 0.0-0.1 [facility] Comment on above: Performed By: #### C BC #### [facility] [address] [address] [address] Mj Mendoza Basophils/100 WBC (Bld) 1.6 % Normal 0.2-2.0 [facility] Comment on above: Performed By: #### C BC #### [facility] [address] [address] [address] Mj Mendoza EO # 0.3 103/ul Normal 0.0-0.7 [facility] Comment on above: Performed By: #### C BC #### [facility] [address] [address] [address] Mj Mendoza Eosinophils/100 WBC (Bld) 3.9 % Normal 0.9-7.0 [facility] Comment on above: Performed By: #### C BC #### [facility] [address] [address] [address] Mj Mendoza Erythrocyte distribution width (RBC) [Ratio] 13.9 % Normal 11.0-15.0 [facility] Comment on above: Performed By: #### C BC #### [facility] [address] [place] [address] Dr. Mj Mendoza Hematocrit (Bld) [Volume fraction] 49.6 % Normal 42.0-54.0 [facility] Comment on above: Performed By: #### C BC #### [facility] [address] [address] [address] Mj Mendoza Hemoglobin (Bld) [Mass/Vol] 16.7 g/dL Normal 14.0-18.0 [facility] Comment on above: Performed By: #### C BC #### [facility] [address] [address] [address] Mj Mendoza IG # 0.03 10e3/ul Normal 0.00-0.03 [facility] Comment on above: Performed By: #### C BC #### [facility] [address] [place] [address] Dr. Mj Mendoza IG % 0.5 % Normal 0.0-0.5 [facility] Comment on above: Performed By: #### C BC #### [facility] [address] [place] [address] Dr. Mj Mendoza LYMPH # 2.2 103/ul Normal 1.2-3.8 [facility] Comment on above: Performed By: #### C BC #### [facility] [address] [place] [address] Dr. Mj Mendoza Lymphocytes/100 WBC (Bld) 33.9 % Normal 20.5-60.0 [facility] Comment on above: Performed By: #### C BC #### [facility] [address] [place] [address] Dr. Mj Mendoza MANUAL DIFF REQ NO Normal [facility] Comment on above: Performed By: #### C BC #### [facility] [address] [place] [address] Dr. Mj Mendoza MCH (RBC) [Entitic mass] 29.2 pg Normal 25.9-34.0 [facility] Comment on above: Performed By: #### C BC #### [facility] [address] [place] [address] Dr. Mj Mendoza MCHC (RBC) [Mass/Vol] 33.7 g/dL Normal 29.9-35.2 [facility] Comment on above: Performed By: #### C BC #### [facility] [address] [place] [address] Dr. Mj Mendoza MCV (RBC) [Entitic vol] 86.9 fL Normal 80.0-94.0 [facility] Comment on above: Performed By: #### C BC #### [facility] [address] [place] [address] Dr. Mj Mendoza MONO # 0.7 103/ul Normal 0.3-0.8 [facility] Comment on above: Performed By: #### C BC #### [facility] [address] [address] [address] Mj Mendoza Monocytes/100 WBC (Bld) 10.7 % Normal 1.7-12.0 [facility] Comment on above: Performed By: #### C BC #### [facility] [address] [address] [address] Mj Mendoza NEUT # 3.1 103/ul Normal 1.4-6.5 [facility] Comment on above: Performed By: #### C BC #### [facility] [address] [address] [address] Mj Mendoza Neutrophils/100 WBC (Bld) 49.4 % Normal 43.0-75.0 [facility] Comment on above: Performed By: #### C BC #### [facility] [address] [place] [address] Dr. Mj Mendoza Platelet mean volume (Bld) [Entitic vol] 8.8 fL Critically low 9.5-13.5 [facility] Comment on above: Performed By: #### C BC #### [facility] [address] [place] [address] Dr. Mj Mendoza PLT 193 103/ul Normal 150-450 [facility] Comment on above: Performed By: #### C BC #### [facility] [address] [place] [address] Dr. Mj Mendoza RBC 5.71 106/ul Normal 4.70-6.10 [facility] Comment on above: Performed By: #### C BC #### [facility] [address] [place] [address] Dr. Mj Mendoza WBC 6.3 103/ul Normal 4.0-11.0 [facility] Comment on above: Performed By: #### C BC #### [facility] [address] [place] [address] Dr. Mj Mendoza LIPID PROFILEon 08-29-2022 CHOL-HDL RATIO NORM SEE BELOW Normal [facility] Comment on above: Result Comment: 3.3 - 4.4 LOW RISK 4.4 - 7.1 AVERAGE RISK 7.1 - 11.0 MODERATE RISK >11.0 HIGH RISK Performed By: #### L IPID, ALT, TSH, BMP #### [facility] [address] [place] [address] Dr. Mj Mendoza Cholesterol [Mass/Vol] 144 mg/dL Normal <=200 [facility] Comment on above: Performed By: #### L IPID, ALT, TSH, BMP #### [facility] [address] [place] [address] Dr. Mj Mendoza Cholesterol in HDL [Mass/Vol] 36 mg/dL Critically low 40-60 [facility] Comment on above: Performed By: #### L IPID, ALT, TSH, BMP #### [facility] [address] [place] [address] Dr. Mj Mendoza Cholesterol in LDL [Mass/Vol] 71.8 mg/dL Normal [facility] Comment on above: Performed By: #### L IPID, ALT, TSH, BMP #### [facility] [address] [place] [address] Dr. Mj Mendoza Cholesterol.total/C holesterol in HDL [Mass ratio] 4.0 {ratio} Normal [facility] Comment on above: Performed By: #### L IPID, ALT, TSH, BMP #### [facility] [address] [place] [address] Dr. Mj Mendoza HDL NORMAL > or = 60 mg/dl - LO W CARDIOVASCULAR RISK <40 mg/dl - HIGH CARDIOVASCULAR RISK Normal [facility] Comment on above: Performed By: #### L IPID, ALT, TSH, BMP #### [facility] [address] [place] [address] Dr. Mj Mendoza LDL CALC NORMAL SEE BELOW Normal [facility] Comment on above: Result Comment: <100 mg/dl OPTIMAL 100 - 129 mg/dl NEAR OR ABOVE OPTIMAL 130 - 159 mg/dl BORDERLINE HIGH 160 - 189 mg/dl HIGH >190 mg/dl VERY HIGH Performed By: #### L IPID, ALT, TSH, BMP #### [facility] [address] [place] [address] Dr. Mj Mendoza Triglyceride [Mass/Vol] 181 mg/dL Critically high <=150 [facility] Comment on above: Performed By: #### L IPID, ALT, TSH, BMP #### [facility] [address] [place] [address] Dr. Mj Mendoza VLDL CALC 36.2 mg/dL Normal [facility] Comment on above: Performed By: #### L IPID, ALT, TSH, BMP #### [facility] [address] [place] [address] Dr. Mj Mendoza PROF CHEM 8 (BAS METB)on Anion gap [Moles/Vol] 10.0 mmol/L Normal [facility] Comment on above: Performed By: #### L IPID, ALT, TSH, BMP #### [facility] [address] [place] [address] Dr. Mj Mendoza Calcium [Mass/Vol] 9.2 mg/dL Normal 8.5-10.1 [facility] Comment on above: Performed By: #### L IPID, ALT, TSH, BMP #### [facility] [address] [place] [address] Dr. Mj Mendoza Chloride [Moles/Vol] 105 mmol/L Normal 98-107 [facility] Comment on above: Performed By: #### L IPID, ALT, TSH, BMP #### [facility] [address] [place] [address] Dr. Mj Mendoza CO2 [Moles/Vol] 27.2 mmol/L Normal 21.0-32.0 [facility] Comment on above: Performed By: #### L IPID, ALT, TSH, BMP #### [facility] [address] [place] [address] Dr. Mj Mendoza Creatinine [Mass/Vol] 1.67 mg/dL Critically high 0.70-1.30 [facility] Comment on above: Performed By: #### L IPID, ALT, TSH, BMP #### [facility] [address] [place] [address] Dr. Mj Mendoza EGFR-AF PUERTO RICAN 49 mL/min/1.73m2 Critically low >=60 [facility] Comment on above: Performed By: #### L IPID, ALT, TSH, BMP #### [facility] [address] [address] [address] Mj Mendoza EGFR-NON AF PUERTO RICAN 40 mL/min/1.73m2 Critically low >=60 [facility] Comment on above: Performed By: #### L IPID, ALT, TSH, BMP #### [facility] [address] [place] [address] Dr. Mj Mendoza Glucose [Mass/Vol] 115 mg/dL Critically high 74-106 [facility] Comment on above: Performed By: #### L IPID, ALT, TSH, BMP #### [facility] [address] [place] [address] Dr. Mj Mendoza Potassium [Moles/Vol] 4.2 mmol/L Normal 3.5-5.1 [facility] Comment on above: Performed By: #### L IPID, ALT, TSH, BMP #### [facility] [address] [place] [address] Dr. Mj Mendoza Sodium [Moles/Vol] 138 mmol/L Normal 136-145 [facility] Comment on above: Performed By: #### L IPID, ALT, TSH, BMP #### [facility] [address] [place] [address] Dr. Mj Mendoza Urea nitrogen [Mass/Vol] 23.0 mg/dL Critically high 7.0-18.0 [facility] Comment on above: Performed By: #### L IPID, ALT, TSH, BMP #### [facility] [address] [place] [address] Dr. Mj Mendoza Urea nitrogen/Creatinine [Mass ratio] 13.8 mg/mg Normal [facility] Comment on above: Performed By: #### L IPID, ALT, TSH, BMP #### [facility] [address] [place] [address] Dr. Mj Mendoza SGPTon 08-29-2022 ALT [Catalytic activity/Vol] 38 U/L Normal 16-63 [facility] Comment on above: Performed By: #### L IPID, ALT, TSH, BMP #### [facility] [address] [place], [place] [address] Dr. Mj Mendoza TSHon 08-29-2022 TSH 1.932 uIU/mL Normal 0.358-3.740 [facility] Comment on above: Performed By: #### L IPID, ALT, TSH, BMP #### [facility] [address] [place], [place] [address] ABD/PELVIS WO CONon [...] TAMIKA SANTIZO Date: 2022-05-06 23:26 Normal [facility] CBC AUTO DIFFon 05-06-2022 BASO # 0.1 103/ul Normal 0.0-0.1 [facility] Comment on above: Performed By: #### C BC #### [facility] [address] [address] [address] Mj Mendoza Basophils/100 WBC (Bld) 0.9 % Normal 0.2-2.0 [facility] Comment on above: Performed By: #### C BC #### [facility] [address] [address] [address] Mj Mendoza EO # 0.1 103/ul Normal 0.0-0.7 [facility] Comment on above: Performed By: #### C BC #### [facility] [address] [address] [address] Mj Mendoza Eosinophils/100 WBC (Bld) 1.8 % Normal 0.9-7.0 [facility] Comment on above: Performed By: #### C BC #### [facility] [address] [address] [address] Mj Mendoza Erythrocyte distribution width (RBC) [Ratio] 14.0 % Normal 11.0-15.0 [facility] Comment on above: Performed By: #### C BC #### [facility] [address] [place] [address] Dr. Mj Mendoza Hematocrit (Bld) [Volume fraction] 47.2 % Normal 42.0-54.0 [facility] Comment on above: Performed By: #### C BC #### [facility] [address] [place] [address] Dr. Mj Mendoza Hemoglobin (Bld) [Mass/Vol] 16.5 g/dL Normal 14.0-18.0 [facility] Comment on above: Performed By: #### C BC #### [facility] [address] [place] [address] Dr. Mj Mendoza IG # 0.01 10e3/ul Normal 0.00-0.03 [facility] Comment on above: Performed By: #### C BC #### [facility] [address] [place] [address] Dr. Mj Mendoza IG % 0.1 % Normal 0.0-0.5 [facility] Comment on above: Performed By: #### C BC #### [facility] [address] [place] [address] Dr. Mj Mendoza LYMPH # 1.8 103/ul Normal 1.2-3.8 [facility] Comment on above: Performed By: #### C BC #### [facility] [address] [place] [address] Dr. Mj Mendoza Lymphocytes/100 WBC (Bld) 23.0 % Normal 20.5-60.0 [facility] Comment on above: Performed By: #### C BC #### [facility] [address] [place] [address] Dr. Mj Mendoza MANUAL DIFF REQ NO Normal [facility] Comment on above: Performed By: #### C BC #### [facility] [address] [place] [address] Dr. Mj Mendoza MCH (RBC) [Entitic mass] 29.8 pg Normal 25.9-34.0 [facility] Comment on above: Performed By: #### C BC #### [facility] [address] [address] [address] Mj Mendoza MCHC (RBC) [Mass/Vol] 35.0 g/dL Normal 29.9-35.2 [facility] Comment on above: Performed By: #### C BC #### [facility] [address] [address] [address] Mj Mendoza MCV (RBC) [Entitic vol] 85.2 fL Normal 80.0-94.0 [facility] Comment on above: Performed By: #### C BC #### [facility] [address] [address] [address] Mj Mendoza MONO # 0.7 103/ul Normal 0.3-0.8 [facility] Comment on above: Performed By: #### C BC #### [facility] [address] [place] [address] Dr. Mj Mendoza Monocytes/100 WBC (Bld) 8.5 % Normal 1.7-12.0 [facility] Comment on above: Performed By: #### C BC #### [facility] [address] [address] [address] Mj Mendoza NEUT # 5.1 103/ul Normal 1.4-6.5 [facility] Comment on above: Performed By: #### C BC #### [facility] [address] [place] [address] Dr. Mj Mendoza Neutrophils/100 WBC (Bld) 65.7 % Normal 43.0-75.0 [facility] Comment on above: Performed By: #### C BC #### [facility] [address] [place] [address] Dr. Mj Mendoza Platelet mean volume (Bld) [Entitic vol] 9.1 fL Critically low 9.5-13.5 [facility] Comment on above: Performed By: #### C BC #### [facility] [address] [place] [address] Dr. Mj Mendoza PLT 195 103/ul Normal 150-450 [facility] Comment on above: Performed By: #### C BC #### [facility] [address] [place] [address] Dr. Mj Mendoza RBC 5.54 106/ul Normal 4.70-6.10 [facility] Comment on above: Performed By: #### C BC #### [facility] [address] [place] [address] Dr. Mj Mendoza WBC 7.8 103/ul Normal 4.0-11.0 [facility] Comment on above: Performed By: #### C BC #### [facility] [address] [place] [address] Dr. Mj Mendoza ER URINE PROFILEon 2 Bilirubin Ql (U) Negative Normal NEGATIVE [facility] Comment on above: Performed By: #### U MICRO, ERUR #### [facility] [address] [place] [address] Dr. Mj Mendoza Clarity (U) CLEAR Normal CLEAR [facility] Comment on above: Performed By: #### U MICRO, ERUR #### [facility] [address] [place] [address] Dr. Mj Mendoza Color (U) YELLOW Normal YELLOW [facility] Comment on above: Performed By: #### U MICRO, ERUR #### [facility] [address] [place] [address] Dr. Mj Mendoza ERUAHD A micrscopic examina tion will be performed if indicated. Normal [facility] Comment on above: Performed By: #### U MICRO, ERUR #### [facility] [address] [place] [address] Dr. Mj Mendoza Glucose Ql (U) Negative Normal NEGATIVE [facility] Comment on above: Performed By: #### U MICRO, ERUR #### [facility] [address] [place] [address] Dr. Mj Mendoza Hemoglobin Ql (U) MODERATE Abnormal NEGATIVE [facility] Comment on above: Performed By: #### U MICRO, ERUR #### [facility] [address] [place] [address] Dr. Mj Mendoza Ketones Ql (U) Negative Normal NEGATIVE [facility] Comment on above: Performed By: #### U MICRO, ERUR #### [facility] [address] [address] [address] Mj Mendoza LEUKOCYTES Negative Normal NEGATIVE [facility] Comment on above: Performed By: #### U MICRO, ERUR #### [facility] [address] [place] [address] Dr. Mj Mendoza Nitrite Ql (U) Negative Normal NEGATIVE [facility] Comment on above: Performed By: #### U MICRO, ERUR #### [facility] [address] [address] [address] Mj Mendoza pH (U) 5.0 [pH] Normal 5-9 [facility] Comment on above: Performed By: #### U MICRO, ERUR #### [facility] [address] [place] [address] Dr. Mj Mendoza SPEC GRAVITY >=1.030 Abnormal 1.005-<=1.025 [facility] Comment on above: Performed By: #### U MICRO, ERUR #### [facility] [address] [place] [address] Dr. Mj Mendoza UA PROTEIN TRACE Normal NEGATIVE/ TRACE [facility] Comment on above: Performed By: #### U MICRO, ERUR #### [facility] [address] [place] [address] Dr. Mj Mendoza UR MICRO IND INDICATED Normal [facility] Comment on above: Performed By: #### U MICRO, ERUR #### [facility] [address] [place] [address] Dr. Mj Mendoza Urobilinogen Qn (U) 0.2 {Mic'U}/dL Normal 0.2 - 1. 0 [facility] Comment on above: Performed By: #### U MICRO, ERUR #### [facility] [address] [place] [address] Dr. Mj Mendoza PROF 14(COMP METB)on 022 Albumin [Mass/Vol] 3.7 g/dL Normal 3.4-5.0 [facility] Comment on above: Performed By: #### C MP #### [facility] [address] [place] [address] Dr. Mj Mendoza Albumin/Globulin [Mass ratio] 1.0 {ratio} Normal [facility] Comment on above: Performed By: #### C MP #### [facility] [address] [place] [address] Dr. Mj Mendoza ALP [Catalytic activity/Vol] 135 U/L Critically high 46-116 [facility] Comment on above: Performed By: #### C MP #### [facility] [address] [place] [address] Dr. jM Mendoza ALT [Catalytic activity/Vol] 47 U/L Normal 16-63 [facility] Comment on above: Performed By: #### C MP #### [facility] [address] [place] [address] Dr. Mj Mendoza Anion gap [Moles/Vol] 12.7 mmol/L Normal [facility] Comment on above: Performed By: #### C MP #### [facility] [address] [place] [address] Dr. Mj Mendoza AST [Catalytic activity/Vol] 22 U/L Normal 15-37 [facility] Comment on above: Performed By: #### C MP #### [facility] [address] [place] [address] Dr. Mj Mendoza Bilirubin [Mass/Vol] 0.7 mg/dL Normal 0.2-1.0 [facility] Comment on above: Performed By: #### C MP #### [facility] [address] [place] [address] Dr. Mj Mendoza Calcium [Mass/Vol] 9.0 mg/dL Normal 8.5-10.1 [facility] Comment on above: Performed By: #### C MP #### [facility] [address] [place] [address] Dr. Mj Mendoza Chloride [Moles/Vol] 103 mmol/L Normal 98-107 [facility] Comment on above: Performed By: #### C MP #### [facility] [address] [place] [address] Dr. Mj Mendoza CO2 [Moles/Vol] 23.1 mmol/L Normal 21.0-32.0 [facility] Comment on above: Performed By: #### C MP #### [facility] [address] [address] [address] Mj Mendoza Creatinine [Mass/Vol] 1.79 mg/dL Critically high 0.70-1.30 [facility] Comment on above: Performed By: #### C MP #### [facility] [address] [address] [address] Mj Mendoza EGFR-AF PUERTO RICAN 45 mL/min/1.73m2 Critically low >=60 [facility] Comment on above: Performed By: #### C MP #### [facility] [address] [place] [address] Dr. Mj Mendoza EGFR-NON AF PUERTO RICAN 37 mL/min/1.73m2 Critically low >=60 [facility] Comment on above: Performed By: #### C MP #### [facility] [address] [place] [address] Dr. Mj Mendoza Globulin (S) [Mass/Vol] 3.8 g/dL Normal [facility] Comment on above: Performed By: #### C MP #### [facility] [address] [place] [address] Dr. Mj Mendoza Glucose [Mass/Vol] 162 mg/dL Critically high 74-106 [facility] Comment on above: Performed By: #### C MP #### [facility] [address] [address] [address] Mj Mendoza Potassium [Moles/Vol] 3.8 mmol/L Normal 3.5-5.1 [facility] Comment on above: Performed By: #### C MP #### [facility] [address] [address] [address] Mj Mendoza Protein [Mass/Vol] 7.5 g/dL Normal 6.4-8.2 [facility] Comment on above: Performed By: #### C MP #### [facility] [address] [place] [address] Dr. Mj Mendoza Sodium [Moles/Vol] 135 mmol/L Critically low 136-145 [facility] Comment on above: Performed By: #### C MP #### [facility] [address] [address] [address] Mj Mendoza Urea nitrogen [Mass/Vol] 23.0 mg/dL Critically high 7.0-18.0 [facility] Comment on above: Performed By: #### C MP #### [facility] [address] [address] [address] Mj Mendoza Urea nitrogen/Creatinine [Mass ratio] 12.8 mg/mg Normal [facility] Comment on above: Performed By: #### C MP #### [facility] [address] [place] [address] Dr. Mj Mendoza URINE MICROSCOPIC ONLYon BACTERIA NONE SEEN Normal NONE SEEN [facility] Comment on above: Performed By: #### U MICRO, ERUR #### [facility] [address] [place] [address] Dr. Mj Mendoza Bacteria identified Cx Nom (U) NOT INDICATED Normal [facility] Comment on above: Performed By: #### U MICRO, ERUR #### [facility] [address] [place] [address] Dr. Mj Mendoza CAST NONE SEEN Normal NONE SEEN [facility] Comment on above: Performed By: #### U MICRO, ERUR #### [facility] [address] [place] [address] Dr. Mj Mendoza Crystals LM Nom (Urine sed) NONE SEEN Normal NONE SEEN [facility] Comment on above: Performed By: #### U MICRO, ERUR #### [facility] [address] [place] [address] Dr. Mj Mendoza Epithelial cells LM Ql (Urine sed) FEW Abnormal NONE SEEN /RARE [facility] Comment on above: Performed By: #### U MICRO, ERUR #### [facility] [address] [place] [address] Dr. Mj Mendoza MUCOUS TRACE Abnormal NONE SEEN [facility] Comment on above: Performed By: #### U MICRO, ERUR #### [facility] [address] [address] [address] Mj Mendoza RBC 2-5 Abnormal 0-2 [facility] Comment on above: Performed By: #### U MICRO, ERUR #### [facility] [address] [address] [address] Mj Mendoza WBC NONE SEEN Normal NONE SEEN [facility] Comment on above: Performed By: #### U MICRO, ERUR #### [facility] [address] [address] [address] Mj Mendoza Vital Signs Date Time Vital Sign Value Performing Clinician Facility 02-26-2024 09:40-0400 Body height 182.88 cm [facility] 02-26-2024 09:40-0400 Body mass index (BMI) [Ratio] 27.4 kg/m2 [facility] 02-26-2024 09:40-0400 Body weight 91.73 kg [facility] 02-26-2024 09:40-0400 Diastolic blood pressure 82 mm[Hg] [facility] 02-26-2024 09:40-0400 Heart rate 56 /min [facility] 02-26-2024 09:40-0400 Respiratory rate 12 /min [facility] 02-26-2024 09:40-0400 Systolic blood pressure 165 mm[Hg] [facility] 09-10-2023 09:36-0400 Body height 182.88 cm [facility] 09-10-2023 09:36-0400 Body mass index (BMI) [Ratio] 27.3 kg/m2 [facility] 09-10-2023 09:36-0400 Body weight 91.34 kg [facility] 09-10-2023 09:36-0400 Diastolic blood pressure 80 mm[Hg] [facility] 09-10-2023 09:36-0400 Heart rate 57 /min [facility] 09-10-2023 09:36-0400 Respiratory rate 12 /min [facility] 09-10-2023 09:36-0400 Systolic blood pressure 130 mm[Hg] [facility] 03-26-2023 15:00-0400 Body height 182.88 cm Jacob Ball Other [facility] Other 03-26-2023 15:00-0400 Body mass index (BMI) [Ratio] 27.61 kg/m2 Jacob Ball Other [facility] Other 03-26-2023 15:00-0400 Body weight 92.35 kg Jacob Ball Other [facility] Other 03-26-2023 15:00-0400 Diastolic blood pressure 70 mm[Hg] Jacob Ball Other [facility] Other 03-26-2023 15:00-0400 Respiratory rate 12 /min Jacob Ball Other [facility] Other 03-26-2023 15:00-0400 Systolic blood pressure 133 mm[Hg] Jacob Ball Other [facility] Other 03-06-2023 10:30-0400 Body height 182.88 cm Jacob Ball Other [facility] Other 03-06-2023 10:30-0400 Body mass index (BMI) [Ratio] 27.31 kg/m2 Jacob Ball Other [facility] Other 03-06-2023 10:30-0400 Body weight 91.36 kg Jacob Ball Other [facility] Other 03-06-2023 10:30-0400 Diastolic blood pressure 90 mm[Hg] Jacob Ball Other [facility] Other 03-06-2023 10:30-0400 Respiratory rate 12 /min Jacob Ball Other [facility] Other 03-06-2023 10:30-0400 Systolic blood pressure 145 mm[Hg] Jacob Ball Other [facility] Other 09-05-2022 14:30-0400 Body height 182.88 cm Jacob Ball Other [facility] Other 09-05-2022 14:30-0400 Body mass index (BMI) [Ratio] 28.1 kg/m2 Jacob Ball Other [facility] Other 09-05-2022 14:30-0400 Body weight 93.99 kg Jacob Ball Other [facility] Other 09-05-2022 14:30-0400 Diastolic blood pressure 98 mm[Hg] Jacob Ball Other [facility] Other 09-05-2022 14:30-0400 Respiratory rate 12 /min Jacob Ball Other [facility] Other 09-05-2022 14:30-0400 Systolic blood pressure 164 mm[Hg] Jacob [employer] Other [facility] Other Encounters Encounter Date Encounter Type Care Provider Facility Start: 02-26-2024 End: 02-26-2024 ambulatory [facility] Work Phone: Start: 02-26-2024 End: 02-26-2024 Patient encounter procedure [facility] Physician [facility] [employer] [facility] Work Phone: Start: 02-20-2024 Non-patient / Non-visit [facility] [employer] Work Phone: Start: 09-10-2023 End: 09-10-2023 ambulatory [facility] Work Phone: Start: 09-10-2023 End: 09-10-2023 Patient encounter procedure [facility] Work Phone: Start: 09-04-2023 Non-patient / Non-visit [facility] [employer] Work Phone: Start: 09-03-2023 Non-patient / Non-visit [facility] Work Phone: Start: 06-19-2023 End: 06-19-2023 ambulatory Jacob Hook Other [facility] Other Start: 06-19-2023 Telephone encounter Jacob [facility] Start: 04-24-2023 End: 04-24-2023 ambulatory Jacob Hook Other [facility] Other Start: 04-24-2023 Telephone encounter Jacob Hook [facility] Start: 04-13-2023 End: 04-13-2023 ambulatory Jacob Hook Other [facility] Other Start: 04-13-2023 Nursing evaluation o f patient and report Jacob Hook [facility] Start: 03-26-2023 End: 03-26-2023 ambulatory Jacob Hook Other [facility] Other Start: 03-26-2023 Office outpatient vi sit 15 minutes Jacob Ball [facility] Start: 03-06-2023 End: 03-06-2023 ambulatory Jacob Wild Other [facility] Other Start: 03-06-2023 Office outpatient vi sit 25 minutes Jacob Ball [facility] Start: 12-13-2022 End: 12-13-2022 ambulatory Jacob Ball Other [facility] Other Start: 12-13-2022 Telephone encounter Jacob Hook [facility] Start: 09-05-2022 End: 09-05-2022 ambulatory Jacob Ball Other [facility] Other Start: 09-05-2022 Patient encounter procedure Jacob Hook [facility] Start: 08-29-2022 End: 08-30-[address] JACOB HOOK Facility:[facility] Start: 08-27-2022 End: 08-27-2022 ambulatory Jacob Hook Other [facility] Other Start: 08-27-2022 Telephone encounter Jacob Hook [facility] Start: 05-06-2022 End: 05-07-[address] JACOB HOOK Facility:[facility] Procedures Date Procedure Procedure Detail Performing Clinician Start: 08-29-[address] [place]I [place] Comment on above: Performed By: #### U MICRO, ERUR #### [facility] [address] [place] [address] Dr. Mj Mendoza Immunizations Immunization Date Immunization Notes Care Provider Fa cili 02-26-2024 influenza, high dose seasonal, preservative-free [facility] 04-13-2023 influenza, high dose seasonal, preservative-free Jacob Hook Other [facility] Other 04-13-2023 influenza virus vaccine, unspecified formulation [facility] 06-23-2022 zoster vaccine recombinant Jacob Hook Other [facility] 03-21-2022 COVID-19 Moderna (BIvalent) Jacob Hook Other [facility] 03-06-2022 influenza virus vaccine, split virus (incl. purified surface antigen) Jacob Hook Other [facility] Other 03-06-2022 influenza virus vaccine, unspecified formulation [facility] 02-24-2022 influenza, high dose seasonal, preservative-free Jacob Hook Other [facility] Other 02-24-2022 influenza virus vaccine, unspecified formulation [facility] 09-26-2021 COVID-19 Vaccine Moderna - Documentation Purposes Only Jacob Hook Other [facility] 04-19-2021 COVID-19 Vaccine Moderna - Documentation Purposes Only Jacob Hook Other [facility] 03-04-2021 influenza virus vaccine, split virus (incl. purified surface antigen) Jacob Hook Other [facility] Other 03-04-2021 influenza virus vaccine, unspecified formulation [facility] 09-08-2020 COVID-19 Vaccine Moderna - Documentation Purposes Only Jacob Hook Other [facility] 08-12-2020 COVID-19 Vaccine Moderna - Documentation Purposes Only Jacob Hook Other [facility] 03-23-2020 influenza virus vaccine, split virus (incl. purified surface antigen) Jacob Hook Other [facility] [employer] Other 03-23-2020 influenza virus vaccine, unspecified formulation [facility] 04-10-2019 influenza virus vaccine, split virus (incl. purified surface antigen) Jacob Hook Other [facility] [employer] Other 04-10-2019 influenza virus vaccine, unspecified formulation [facility] 03-27-2018 influenza virus vaccine, split virus (incl. purified surface antigen) Jacob Hook Other [facility] Other 03-27-2018 influenza virus vaccine, unspecified formulation [facility] 04-19-2017 influenza virus vaccine, split virus (incl. purified surface antigen) Jacob Hook Other [facility] Other 04-19-2017 influenza virus vaccine, unspecified formulation [facility] 05-02-2016 influenza virus vaccine, split virus (incl. purified surface antigen) Jacob Hook Other [facility] Other 05-02-2016 influenza virus vaccine, unspecified formulation [facility] 06-08-2015 diphtheria, tetanus toxoids and acellular pertussis vaccine, unspecified formulation Jacob Hook Other [facility] 06-08-2015 pneumococcal conjuga te vaccine, 13 valent Jacob Hook Other [facility] 03-18-2015 influenza virus vaccine, split virus (incl. purified surface antigen) Jacob Hook Other [facility] Other 03-18-2015 influenza virus vaccine, unspecified formulation [facility] 04-15-2014 influenza virus vaccine, split virus (incl. purified surface antigen) Jacob Hook Other [facility] Other 04-15-2014 influenza virus vaccine, unspecified formulation [facility] 04-22-2013 pneumococcal conjuga te vaccine, 7 valent Jacob Hook Other [facility] [employer] Other 04-22-2013 pneumococcal Conjuga te, unspecified formulation [facility] 04-11-2013 pneumococcal polysaccharide vaccine, 23 valent Jacob Hook Other [facility] 04-11-2013 tetanus and diphther ia toxoids, adsorbed, preservative free, for adult use (5 Lf of tetanus toxoid and 2 Lf of diphtheria toxoid) Jacob Wild Other [facility] 05-21-2012 zoster vaccine, live Sanju Hook Other [facility] Payers Date Payer Category Payer Medicare [id number] 1958 Unknown [id number] 1945 Unknown [id number] 1945 Unknown [id number] Unknown Regular Insurance [id number] Social History Date Type Detail Facility Sex Assigned At [facility] Other Start: [facility]03-2023 [facility] Start: 1945 Sex Assigned At Male F [facility] Clinical Notes 08-27-2022 to 06-19-2023 Note Date & Type Note Facility 06-19-2023 Evaluation note Encounter Date Diagnosis Assessment Notes Jun, Elevated cholesterol (ICD-10 - E78.00) [facility] Other 11-07-2023 Evaluation note* Encounter Date Diagnosis Assessment Notes Treatment Notes Treatment Clinical Notes Apr, Autoimmune thyroiditis (ICD-10 - E06.3) [facility] Other 10-09-2023 Evaluation note* Encounter Date Diagnosis Assessment Notes Treatment Notes Treatment Clinical Notes Mar, Acute non-recurrent maxillary sinusitis (ICD-10 - J01.00) Instructed to use Robitussin or Mucinex for cough, saline or Flonase NS for congestion, Tylenol for pain and fever. Mar, Impacted cerumen of right ear (ICD-10 - H61.21) De[employer] q HS Irrigate clear on Sunday if desires. Avoid use of QTip [facility] Other 09-19-2023 Evaluation note* Encounter Date Diagnosis Assessment Notes Treatment Notes Treatment Clinical Notes Feb, ASHD (arteriosclerotic heart disease) (ICD-10 - I25.10) This patient [...] and SONDRA Feb, Nocturia (ICD-10 - R35.1) [facility] Other 06-28-2023 Evaluation note* Encounter Date Diagnosis Assessment Notes Treatment Notes Treatment Clinical Notes Nov, Primary hypertension (ICD-10 - I10) [facility] Other 03-21-2023 Evaluation note* Encounter Date Diagnosis Assessment Notes Treatment Notes Treatment Clinical Notes Aug, ASHD (arteriosclerotic heart disease) (ICD-10 - I25.10) This patient [...] continue exercise to achieve/maintain a normal BMI. Aug, Benign prostatic hyperplasia [...] and exercise. Reviewed age-appropriate preventive testing recommended. [facility] Other 03-12-2023 Evaluation note* Encounter Date Diagnosis Assessment Notes Treatment Notes Treatment Clinical Notes Aug, Other specified hypothyroidism (ICD-10 - [...] High risk medication use (ICD-10 - Z79.899) [facility] Other Evaluation noteNo InformationNort 20:20 [employer] Other Evaluation note* Diagnosis Onset Date Resolution Status ASHD (arteriosclerotic heart disease) acute GERD (gastroesophageal reflux disease) acute Hypothyroid acute Primary hypertension acute Screening PSA (prostate specific antigen) acute Stage 3b chronic kidney disease acute Medicare annual wellness visit, subsequent noneactive [facility] Work Phone: Evaluation note* Diagnosis Onset Date Resolution Status ASHD (arteriosclerotic heart disease) acute GERD (gastroesophageal reflux disease) acute Hypothyroid acute Primary hypertension acute Stage 3b chronic kidney disease acute Rotator cuff strain noneacti ve [facility] Work Phone: History general Narrative - Reported* Type Description Date Medical History Other specified hypothyroidism Medical History [...] in remission Surgical History CABG, 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 Surgical History COLONOSCOPY 2019 Hospitalization History SEE SURGICAL HX Satellogic Other Summary Purpose Family History No Family [...] kidney disease Medicare annual wellness visit, subsequent Chief Complaint 6 month Reason for Visit ASHD (arteriosclerot ic heart disease) GERD (gastroesophageal reflux disease) Hypothyroid Primary hypertension Stage 3b chronic kidney disease Rotator cuff strain Additional Source Comments (unrecognized sect ion and content) No Status Records Found INFORMATION SOURCE (unrecogn ized section and content) DATE CREATED AUTHOR 09/05/2022 [facility] REASON FOR VISIT (unrecogniz ed section and content) FLU ShotRIGHT EAR PLUGGED6 m onth [facility] Care Teams (unrecognized sec tion and content) [...] September 10, 2023 End: September 10, 2023 Team Status: Active Member Role Status Dates Jacob Hook DO Primary Care Provide r, Attending Provider Active Start: February 20, 2024 Team Status: Inactive Member Role Status Dates Jacob Hook DO Primary Care Provide r, Attending Provider Active Start: February 26, 2024 End: February 26, 2024 Goals (unrecognized section and content) Goals may [...] BE BASED ON THE PRIMARY CLINICAL RECORDS. [facility]. provides no warranty or guarantee of the accuracy or completeness of information in this document.
--- NOTE | 2024-05-05 07:12 | CT_ITS ---
[address] [address] Patient Name: SANDER WILLIAMSON MRN: [id number] date: 1945 Sex: M Assigned Patient Location: ER Current Patient Location: ER Accession/Order Number: [id number] Exam Date: 05/05/2024 07:20 Report Date: 05/05/2024 07:53 At the request of: MARIAM FOX Procedure: CT abdomen pelvis wo con EXAMINATION: CT abdomen pelvis wo con HISTORY: Pain, rule out kidney stone COMPARISON: 05/06/2022 TECHNIQUE: Axial, Coronal, and Sagittal images were created without IV contrast. Dose reduction techniques were achieved by using automated exposure control and/or adjustment of mA and/or kV according to patient size and/or use of iterative reconstruction technique. FINDINGS: LUNG BASES: Peripheral interlobular septal thickening LIVER: No enlargement, atrophy, abnormal density, or significant focal lesion. BILIARY: Cholelithiasis. Mild pericholecystic stranding versus wall thickening PANCREAS: No lesion, fluid collection, ductal dilatation, or atrophy. SPLEEN: No enlargement or focal lesion. ADRENALS: No mass or enlargement. KIDNEYS: [Nonobstructing nephrolithiasis. No obstructive uropathy BOWEL/MESENTERY: Moderate colonic diverticulosis without evidence of acute diverticulitis. Nonobstructive bowel gas pattern. Normal appendix. 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 No aortic aneurysm. Moderate calcific atherosclerosis RETROPERITONEUM: No mass or adenopathy. LYMPH NODES: No adenopathy. URINARY BLADDER: No visible focal wall thickening, lesion, or calculus. PELVIC ORGANS: No visible mass. Pelvic organs appropriate for patient age. ABDOMINAL WALL: No mass or hernia. BONES: No bony lesion or fracture. OTHER: Negative. CT/CT abdomen pelvis wo con IMPRESSION: No obstructive uropathy Possible inflammatory changes of the gallbladder, consider gallbladder follow-up for further evaluation Electronically authenticated by: SANDER REYES Date: 05/05/2024 07:53
--- NOTE | 2024-05-05 07:12 | ED.GENADUL1 ---
HPI HPI - General Adult General Chief complaint: Abdominal Pain Stated complaint: BACK/ABDOMINAL PAIN Time Seen by Provider: 05/05/24 07:08 Source: patient Mode of arrival: walk-in Limitations: no limitations History of Present Illness HPI narrative: 78-year-old male presents for concern of kidney stone. He developed some bilateral back pain which is now moved into his abdomen and it started yesterday. No trauma or unusual activity. He states he has felt exactly like this when he had a kidney stone before. No gross hematuria or dysuria. He has been nauseous but no vomiting. Related Data Home Medications ?Medication ?Instructions ?Recorded ?Confirmed amlodipine 2.5 mg tablet 2.5 mg PO DAILY 05/05/24 05/05/24 atorvastatin 40 mg tablet 40 mg PO DAILY 05/05/24 05/05/24 levothyroxine 137 mcg tablet 137 mcg PO DAILY 05/05/24 05/05/24 losartan 25 mg tablet 25 mg PO BID 05/05/24 05/05/24 metoprolol succinate 25 mg 25 mg PO DAILY 05/05/24 05/05/24 tablet,extended release 24 hr sildenafil (pulm.hypertension) 20 20 mg PO PRN sexual activity 05/05/24 mg tablet Allergies Allergy/AdvReac Type Severity Reaction Status Date / Time No Known Drug Allergies Allergy Verified 05/05/24 06:41 Opioid HPI Opioid Management Most Recent Opioid Data: Last Pain Scale 7 05/05/24 07:19 05/05/24 Last ED Pain Assessment 05/05/24 06:53 Last MAR Pain Assessment 05/05/24 07:19 Review of Systems ROS Narrative A ten point review of systems is negative except as noted above. PFSH PFSH Medical History (Updated 05/05/24 @ 11:41 by Prem Gonzalez MD) CAD (coronary artery disease) ?I25.10 - Atherosclerotic heart disease of [place] coronary artery without angina pectoris (ICD-10) Hypertension ?I10 - Essential (primary) hypertension (ICD-10) Surgical History (Updated 05/05/24 @ 06:44 by Hali Art) H/O heart bypass surgery ?Z95.1 - Presence of aortocoronary bypass graft (ICD-10) Social History Little interest or pleasure in doing things: not at all Feeling down, depressed, or hopeless: not at all Exam Narrative Exam Narrative: Nurses note and vital signs reviewed and patient is not hypoxic. General: The patient appears well and in no apparent distress. Patient is resting comfortably on cart. Skin: Warm, dry, no pallor noted. There is no rash noted. Head: Normocephalic, atraumatic Eye: Normal conjunctiva, no drainage Ears, Nose, Mouth, and Throat: oral mucosa is moist. Nares patent. Cardiovascular: Regular Rate and Rhythm Respiratory: Patient is in no distress, no accessory muscle use, lungs are clear to auscultation, no wheezing, rales or rhonchi Back: non-tender, no CVA tenderness bilaterally to percussion. No bruise or rash GI: Soft and nontender, nondistended no masses. Musculoskeletal: The patient has no evidence of calf tenderness, no pitting edema, symmetrical pulses noted bilaterally Neurological: A&O, normal speech Psychiatric: Cooperative Constitutional Vital Signs, click to edit/add: Last Vital Signs Temp 97.6 F 05/05/24 06:36 Pulse 60 05/05/24 08:06 Resp 16 05/05/24 08:06 BP 165/94 H 05/05/24 11:00 Pulse Ox 96 05/05/24 11:10 O2 Del Method Room Air 05/05/24 08:06 Course Vital Signs Vital signs: Vital Signs Temperature 97.6 F 05/05/24 06:36 Pulse Rate 59 L 05/05/24 06:36 Respiratory Rate 16 05/05/24 06:36 Blood Pressure 194/91 H 05/05/24 06:36 Pulse Oximetry 96 05/05/24 06:36 Oxygen Delivery Method Room Air 05/05/24 06:36 Temperature 97.6 F 05/05/24 06:36 Pulse Rate 60 05/05/24 08:06 Respiratory Rate 16 05/05/24 08:06 Blood Pressure 165/94 H 05/05/24 11:00 Pulse Oximetry 96 05/05/24 11:10 Oxygen Delivery Method Room Air 05/05/24 08:06 Medical Decision Making [facility] Narrative Medical decision making narrative: The patient has no kidney stone. CAT scan suggested an enlarged gallbladder so ultrasound was performed. Radiologist reads that as chronic cholecystitis versus acute acalculous cholecystitis. I do not suspect acute acalculous cholecystitis. He has no pain in the right upper quadrant on palpation and his white count is normal and he does not have a fever. He has had no symptoms in the right upper quadrant. The case was discussed with Dr. Myers and the patient will follow-up with him if he ever develops pain in that right upper quadrant. Additionally, possible abnormality of the aorta was suggested on the CAT scan so an ultrasound of the aorta was performed which shows likely calcification. Case discussed with Dr. Martinez and the patient will follow-up with Dr. Martinez regarding his aorta. These findings are discussed thoroughly with the patient. He does not require admission to the hospital. I have no clinical suspicion of acute cholecystitis. Lab Data Lab results reviewed: Yes I reviewed the patient's lab results Labs: Lab Results 05/05/24 05/05/24 Range/Units 06:44 08:45 WBC 7.7 (4.0-11.0) 10^3/uL RBC 5.13 (4.70-6.10) 10^6/uL Hgb 15.3 (14.0-18.0) g/dL Hct 45.4 (42.0-54.0) % MCV 88.5 (80.0-94.0) fL MCH 29.8 (25.9-34.0) pg MCHC 33.7 (29.9-35.2) g/dL RDW 13.5 (11.0-15.0) % Plt Count 186 (150-450) 10^3/uL MPV 9.6 (9.5-13.5) fL Neut % (Auto) 70.8 (43.0-75.0) % Lymph % (Auto) 19.8 L (20.5-60.0) % [place] % (Auto) 6.4 (1.7-12.0) % Eos % (Auto) 2.2 (0.9-7.0) % Baso % (Auto) 0.7 (0.2-2.0) % Neut # (Auto) 5.4 (1.4-6.5) 10^3/uL Lymph # (Auto) 1.5 (1.2-3.8) 10^3/uL [place] # (Auto) 0.5 (0.3-0.8) 10^3/uL Eos # (Auto) 0.2 (0.0-0.7) 10^3/uL Baso # (Auto) 0.1 (0.0-0.1) 10^3/uL Abs Immat Gran (auto) 0.01 (0.00-0.03) 10^3/uL Imm/Tot Granulo (auto) 0.1 (0.0-0.5) % Sodium 141 (136-145) mmol/L Potassium 4.0 (3.5-5.1) mmol/L Chloride 106 (98-107) mmol/L Carbon Dioxide 22.2 (21.0-32.0) mmol/L Anion Gap 16.8 BUN 24.0 H (7.0-18.0) mg/dL Creatinine 2.27 H (0.70-1.30) mg/dL Est GFR ( Amer) 34 L (>=60 mL/min/1.73m^2) Est GFR (Non-Af Amer) 28 L (>=60 mL/min/1.73m^2) BUN/Creatinine Ratio 10.6 Glucose 146 H (74-106) mg/dL Calcium 8.9 (8.5-10.1) mg/dL Total Bilirubin 0.6 (0.2-1.0) mg/dL Direct Bilirubin 0.1 (0.0-0.2) mg/dL AST 22 (15-37) U/L ALT 32 (16-63) U/L Alkaline Phosphatase 125 H (46-116) U/L Total Protein 7.5 (6.4-8.2) g/dL Albumin 3.3 L (3.4-5.0) g/dL Globulin 4.2 g/dL Albumin/Globulin Ratio 0.8 Amylase 152 H (25-115) U/L Lipase 55.0 (16.0-77.0) U/L Urine Color Lt. yellow (YELLOW) Urine Clarity Clear (CLEAR) Urine pH 6.0 (5.0-9.0) Ur Specific [place] 1.025 (1.005-1.025) Urine Protein Negative (NEG/TRACE) mg/dL Urine Glucose (UA) Negative (NEGATIVE) mg/dL Urine Ketones Negative (NEGATIVE) mg/dL Urine Occult Blood Moderate A (NEGATIVE) Urine Nitrite Negative (NEGATIVE) Urine Bilirubin Negative (NEGATIVE) Urine Urobilinogen 0.2 (0.2-1.0) EU/dL Ur Leukocyte Esterase Negative (NEGATIVE) Urine RBC 10-20 A (0-2) #/HPF Urine WBC None seen (NONE SEEN) #/HPF Ur Squamous Epith Cells Few A (NONE/RARE) #/LPF Urine Crystals None seen (None Seen) #/HPF Urine Bacteria Trace A (NONE SEEN) #/HPF Urine Casts None seen (NONE SEEN) #/LPF Urine Mucus Trace A (NONE SEEN) Imaging Data CT scan - abdomen: Radiologist's impression: ITS Impressions Abdomen/Pelvis CT 05/05/24 07:12 IMPRESSION: No obstructive uropathy Possible inflammatory changes of the gallbladder, consider gallbladder follow-up for further evaluation Electronically authenticated by: SANDER REYES Date: 05/05/2024 07:53 Upper Quadrant Ultrasound 05/05/24 08:01 IMPRESSION: 1. Abnormal gallbladder wall thickening without appreciable stones, free fluid, or tenderness while imaging over the gallbladder. Chronic cholecystitis versus acute acalculous cholecystitis. Electronically authenticated by: KEREN CASTILLO Date: 05/05/2024 09:17 Aorta Ultrasound 05/05/24 08:57 IMPRESSION: 1. No significant aortic aneurysm. 2. Moderate marked atherosclerotic disease. 3. Calcified plaque projecting into the lumen versus small, short dissection flap. Calcification projecting into the lumen is more likely. It would be unusual for a dissection to begin at this level. CT angiography of the abdomen pelvis could be performed for further evaluation if clinically indicated. Electronically authenticated by: KEREN CASTILLO Date: 05/05/2024 10:07 Discharge Plan Discharge Chief Complaint: Abdominal Pain Clinical Impression: Abdominal pain Patient Disposition: Home, Self-Care Time of Disposition Decision: 11:39 Condition: Good Mode of Transportation: Private Vehicle Prescriptions / Home Meds: No Action amlodipine 2.5 mg tablet 2.5 mg PO DAILY atorvastatin 40 mg tablet 40 mg PO DAILY levothyroxine 137 mcg tablet 137 mcg PO DAILY losartan 25 mg tablet 25 mg PO BID metoprolol succinate 25 mg tablet extended release 24 hr 25 mg PO DAILY sildenafil (pulm.hypertension) 20 mg tablet 20 mg PO PRN (Reason: sexual activity) Print Language: Kiswahili Instructions: Abdominal Pain (ED) Referrals: Jacob Rome DO [Primary Care Provider] - 1 week Gary Myers DO [Physician] - (Follow-up if you develop pain on the right side with eating, particularly with greasy foods.) Carole Martinez MD [Physician] - 1 week
[2024-05-05] MEDS: ONDANSETRON PF 4 MG/2 ML VIAL IV (07:18)
[2024-05-05] MEDS: KETOROLAC TROMETHAMINE 30 MG/ML VIAL IVP (07:19)
[2024-05-05 07:25] LABS: Basophils Absolute Auto 0.1 10^3/uL (0.0-0.1); Basophils Percent Auto 0.7 % (0.2-2.0); Eosinophils Absolute Auto 0.2 10^3/uL (0.0-0.7); Eosinophils Percent Auto 2.2 % (0.9-7.0); Hematocrit 45.4 % (42.0-54.0); Hemoglobin 15.3 g/dL (14.0-18.0); Immature Granulocytes Abs Auto 0.01 10^3/uL (0.00-0.03); Immature Granulocytes Pct Auto 0.1 % (0.0-0.5); Lymphocytes Absolute Auto 1.5 10^3/uL (1.2-3.8); Lymphocytes Percent Auto 19.8 % (20.5-60.0); Mean Corpuscular HGB Conc 33.7 g/dL (29.9-35.2); Mean Corpuscular Hemoglobin 29.8 pg (25.9-34.0); Mean Corpuscular Volume 88.5 fL (80.0-94.0); Mean Platelet Volume 9.6 fL (9.5-13.5); Monocytes Absolute Auto 0.5 10^3/uL (0.3-0.8); Monocytes Percent Auto 6.4 % (1.7-12.0); Neutrophils Absolute Auto 5.4 10^3/uL (1.4-6.5); Neutrophils Percent Auto 70.8 % (43.0-75.0); Platelet Count 186 10^3/uL (150-450); Red Blood Count 5.13 10^6/uL (4.70-6.10); Red Cell Distribution Width 13.5 % (11.0-15.0); White Blood Count 7.7 10^3/uL (4.0-11.0)
[2024-05-05 07:31] LABS: Anion Gap 16.8; BUN Creatinine Ratio 10.6; Calcium 8.9 mg/dL (8.5-10.1); Carbon Dioxide 22.2 mmol/L (21.0-32.0); Chloride 106 mmol/L (98-107); Estimated GFR (African America 34 (>=60 mL/min/1.73m^2); Estimated GFR (Non-African Ame 28 (>=60 mL/min/1.73m^2); Glucose 146 mg/dL (74-106); Sodium 141 mmol/L (136-145)
--- NOTE | 2024-05-05 08:01 | US_ITS ---
The [address] [address] Patient Name: SANDER WILLIAMSON MRN: [id number] date: 1945 Sex: M Assigned Patient Location: ER Current Patient Location: ER Accession/Order Number: [id number] Exam Date: 05/05/2024 08:15 Report Date: 05/05/2024 09:17 At the request of: MARIAM FOX Procedure: US right upper quadrant EXAMINATION: US right upper quadrant HISTORY: Abdominal pain COMPARISON: No relevant comparison available. TECHNIQUE: Transabdominal evaluation of the right upper quadrant. FINDINGS: LIVER: Normal size and echotexture. Color Doppler demonstrates patent hepatic veins. PORTAL VEIN: Duplex Doppler demonstrates normal hepatopetal flow pattern with flow velocity averaging 32 cm/s. GALLBLADDER: Abnormal gallbladder wall thickening, 5 mm. No stones, free fluid, or mass. Negative sonographic Zhao's sign. BILIARY: No abnormal dilation or stones. Common bile duct diameter is within normal limits. PANCREAS: No visible mass, abnormal atrophy, or duct dilation. KIDNEY: No hydronephrosis. No visible mass or stones. Size: 10.3 x 4.3 x 5.3 cm US/US right upper quadrant IMPRESSION: 1. Abnormal gallbladder wall thickening without appreciable stones, free fluid, or tenderness while imaging over the gallbladder. Chronic cholecystitis versus acute acalculous cholecystitis. Electronically authenticated by: KEREN CASTILLO Date: 05/05/2024 09:17
[2024-05-05 08:17] LABS: Alanine Aminotransferase 32 U/L (16-63); Albumin Globulin Ratio 0.8; Albumin Level 3.3 g/dL (3.4-5.0); Alkaline Phosphatase 125 U/L (46-116); Amylase 152 U/L (25-115); Aspartate Amino Transferase 22 U/L (15-37); Bilirubin Direct 0.1 mg/dL (0.0-0.2); Bilirubin Total 0.6 mg/dL (0.2-1.0); Globulin 4.2 g/dL; Total Protein 7.5 g/dL (6.4-8.2)
[2024-05-05 08:53] LABS: Bilirubin Urine NEGATIVE (NEGATIVE); Blood Urine MODERATE (NEGATIVE); Clarity Urine CLEAR (CLEAR); Color Urine LT. YELLOW (YELLOW); Glucose Urine UA NEGATIVE (NEGATIVE); Ketones Urine NEGATIVE (NEGATIVE); Leukocyte Esterase Urine NEGATIVE (NEGATIVE); Nitrite Urine NEGATIVE (NEGATIVE); Protein Urine NEGATIVE (NEG/TRACE); Specific Gravity Urine 1.025 (1.005-1.025); Urobilinogen Urine 0.2 EU/dL (0.2-1.0)
--- NOTE | 2024-05-05 08:57 | US_ITS ---
The [address] [address] Patient Name: SANDER WILLIAMSON MRN: [id number] date: 1945 Sex: M Assigned Patient Location: ER Current Patient Location: ER Accession/Order Number: [id number] Exam Date: 05/05/2024 09:00 Report Date: 05/05/2024 10:07 At the request of: MARIAM FOX Procedure: US aorta EXAM: US aorta HISTORY: Abnormal CT scan, creatinine elevated. TECHNIQUE: Ultrasound was performed of the abdominal aorta. COMPARISON: CT abdomen pelvis without contrast 05/05/2024 FINDINGS: AORTA: Maximal diameter of the abdominal aorta is 2.8 x 2.4 cm. Maximum diameter of the right and left iliac arteries is 1.4 cm and 1.2 cm respectively. OTHER: Prominent atherosclerotic calcifications of the distal abdominal aorta. Calcification projecting into the lumen versus dissection flap. US/US aorta IMPRESSION: 1. No significant aortic aneurysm. 2. Moderate marked atherosclerotic disease. 3. Calcified plaque projecting into the lumen versus small, short dissection flap. Calcification projecting into the lumen is more likely. It would be unusual for a dissection to begin at this level. CT angiography of the abdomen pelvis could be performed for further evaluation if clinically indicated. Electronically authenticated by: KEREN CASTILLO Date: 05/05/2024 10:07
[2024-05-05 09:11] LABS: Bacteria Urine TRACE #/HPF (NONE SEEN); Mucus Urine TRACE (NONE SEEN); Squamous Epithelial Cell Urine FEW #/LPF (NONE/RARE); WBC Urine NONE SEEN #/HPF (NONE SEEN)
[2024-05-05 09:12] LABS: Cast Seen? NONE SEEN #/LPF (NONE SEEN); Crystals Seen? None Seen #/HPF (None Seen)
== END 2024-05-05 11:58 | disposition home or self-care (01) ==
PROVIDERS: Emergency Provider Emergency Medicine; PCP Internal Medicine
DX: R10.9 Unspecified abdominal pain (principal); Z87.442 Personal history of urinary calculi; Z95.1 Presence of aortocoronary bypass graft
CPT/HCPCS: 36415; 74176; 76705; 76706; 80048; 80076; 81001; 82150; 83690; 85025; 96374; 96375; 99285; J1885; J2405

== ENCOUNTER 2024-05-08 10:56 | Outpatient (OUT) | payer MEDICARE, SELFPAY ==
--- NOTE | 2024-05-08 11:01 | XR_ITS ---
The [address] [address] Patient Name: SANDER WILLIAMSON MRN: [id number] date: 1945 Sex: M Assigned Patient Location: [facility] Current Patient Location: Accession/Order Number: [id number] Exam Date: 05/08/2024 11:10 Report Date: 05/09/2024 15:10 At the request of: RAMONA HOOK Procedure: XR chest 2V EXAMINATION: XR chest 2V HISTORY: Cough COMPARISON: XR chest 08/04/2021 FINDINGS: LUNGS: Trace amount stranding and minimal opacities within lateral left lung base. VASCULATURE: No increased pulmonary vasculature. PLEURA: No pneumothorax, effusion, or pleural thickening. CARDIAC: No cardiomegaly or cardiac silhouette abnormality. MEDIASTINUM: Multiple surgical clips and prior sternotomy. No abnormal mediastinal widening. BONES: No fracture or visible bone lesion. OTHER: Negative. XR/XR chest 2V IMPRESSION: 1. Trace amount of lingular atelectasis versus infiltrates. Electronically authenticated by: KEREN CASTILLO Date: 05/09/2024 15:10
--- OUTSIDE RECORDS SUMMARY | 2024-05-08 11:15 | XMS_ITS | CCD ---
Author Organization [facility] Care Team Providers Care Patient Insurance Clerk Name Role Phone DR JACOB HOOK Primary Care Unavailable ANNELIESE, DR HEATHER Corona Admitting Unavailable ANNELIESE, DR HEATHER Corona Consulting Unavailable ANNELIESE, DR HEATHER Corona Attending Unavailable TAMIKA SANTIZO Consulting Unavailable WILD, DR GREENE Admitting Unavailable WILD, DR GREENE Primary Care Unavailable WILD, DR GREENE Consulting Unavailable WILD, DR GREENE Attending Unavailable Jacob Hook Unavailable Medications Current Medications Medication Drug Class(es) Dates Sig (Normalized) Sig (Original) amLODIPine 2.5 mg oral tablet (1 source) Dihydropyridine Calcium Channel Fernando Start: 02-26-2024 take 1 tablet by mouth once daily Amlodipine 2.5 mg tablet Active 2.5 MG PO Daily February 25, 2024 11:00pm atorvastatin 40 mg oral tablet (13 sources) HMG-CoA Reductase Inhibitor Start: 04-16-2024 take 1 tablet by mouth once daily Atorvastatin 40 mg tablet Active 0 .ROUTE .COMPLEX April 16, 2024 9:50pm TAKE 1 TABLET BY MOUTH EVERY DAY FOR 90 DAYS Start: 09-03-2023 End: 04-16-2024 take 1 tablet by mouth once daily Atorvastatin 40 mg tablet Discontinued 40 MG PO Daily September 02, 2023 11:00pm April 16, 2024 9:50pm take 1 tablet by chitra th every twenty-four hours Atorvastatin Calcium 40 MG 1 tablet Orally Once a day for 90 days Active azithromycin 250 mg oral tablet (4 sources) Macrolide Antimicrobial Start: 03-26-2023 Azithromycin 250 MG as directed Orally daily for 5 days Mar, Active levothyroxine sodium 0.137 mg oral capsule (12 sources) l-Thyroxine Start: 09-03-2023 take 1 capsule by mouth once daily Levothyroxine 137 mcg capsule Active 137 MCG PO Daily September 02, 2023 11:00pm take 1 tablet by mouth once criss y Levothyroxine Sodium 137 MCG TAKE 1 TABLET BY MOUTH ONCE DAILY ON AN EMPTY STOMACH for 90 Active take 1 tablet by mouth once criss y Levothyroxine Sodium 137 MCG TAKE 1 TABLET BY MOUTH ONCE DAILY ON AN EMPTY STOMACH for 90 Active losartan potassium 25 mg oral tablet (14 sources) Angiotensin 2 Receptor Fernando Start: 04-13-2024 take 1 tablet by mouth twice daily Losartan 25 mg tablet Active 0 .ROUTE .COMPLEX 180 April 13, 2024 6:29pm TAKE 1 TABLET BY MOUTH TWICE A DAY Start: 02-26-2024 End: 04-13-2024 take 2 tablets by mouth once daily Losartan 25 mg tablet Discontinued 50 MG PO Daily February 26, 2024 12:01pm April 13, 2024 6:29pm Start: 09-03-2023 End: 02-26-2024 take 1 tablet by mouth twice daily Losartan 25 mg tablet Discontinued 25 MG PO Twice daily September 02, 2023 11:00pm February 26, 2024 12:01pm take 1 tablet by chitra th twice daily Losartan Potassium 25 MG 1 tablet Orally twice daily for 90 days Active take 1 tablet by chitra th every twenty-four hours Losartan Potassium 25 MG 1 tablet Orally Once a day for 90 days Active 24 hr metoprolol succinate 25 mg extended release oral tablet (14 sources) beta-Adrenergic Fernando Start: 09-12-2023 take 1 tablet by mouth once daily Metoprolol Succinate 25 mg tablet extended release 24 hr Active 0 .ROUTE .COMPLEX 90 September 12, 2023 5:09pm TAKE 1 TABLET BY MOUTH EVERYDAY Start: 09-03-2023 End: 09-12-2023 take 1 tablet by mouth once daily Metoprolol Succinate 25 mg tablet extended release 24 hr Discontinued 25 MG PO Daily September 02, 2023 11:00pm September 12, 2023 5:09pm take 1 tablet by chitra th once daily Metoprolol Succinate ER 25 MG Take 1 tablet by mouth once daily Active sildenafil 20 mg oral tablet (15 sources) Phosphodiesterase 5 Inhibitor Start: 01-02-2024 End: 04-16-2024 take 2 tablets by mouth once daily as needed Sildenafil (Pulm.Hypertension) 20 mg tablet Active 0 .ROUTE .COMPLEX April 16, 2024 9:50pm TAKE 2 TABLETS BY MOUTH DAILY NEEDED FOR ERECTILE DYSFUNCTION Start: 09-03-2023 End: 07-17-2024 Sildenafil (Pulm.Hypertensio n) 20 mg tablet Discontinued 40 MG PO Daily as needed for erectile dysfunction September 02, 2023 11:00pm January 02, 2024 9:12am Start: 09-03-2023 End: 01-02-2024 take 40 mg [...] Problem Date Documented Date Episodic/Chronic Abdominal pain (5 sources) Lower abdominal pain, unspecified; Translations: [Abdominal pain] Onset: 05-06-2022 Episodic Acute bronchitis (2 sources) Acute infective bronchitis; Translations: [Acute bronchitis due to other specified organisms] 05-07-2024 Episodic Biliary tract disease (2 sources) Acute and chronic cholecystitis; Translations: [Acute cholecystitis with chronic cholecystitis] 05-07-2024 Episodic Chronic kidney disease (16 sources) Chronic kidney disease stage 3B ; Translations: [Stage 3b chronic kidney disease] 09-03-2023 Chronic Coronary atherosclerosis and other heart disease (18 sources) Coronary arteriosclerosis; Translations: [Atherosclerotic heart disease of cheesh-na coronary artery without angina pectoris] Chronic Disorders of lipid metabolism (20 sources) Pure hypercholesterolemia, unspecified; Translations: [Pure hypercholesterolemia] Onset: 08-29-2022 Chronic Esophageal disorders (10 sources) Gastro-esophageal reflux disease with esophagitis; Translations: [Gastroesophageal reflux disease with esophagitis without hemorrhage] 09-08-2023 Chronic Essential hypertension (20 sources) Essential (primary) hypertension; Translations: [Essential hypertension] Onset: 09-04-2022 Chronic Genitourinary symptoms and ill-defined conditions (2 sources) Nocturia Episodic Hyperplasia of prostate (15 sources) Nocturia due to benign prostatic hypertrophy; Translations: [Benign prostatic hyperplasia with lower urinary tract symptoms] Chronic Nonspecific chest pain (9 sources) Precordial pain; Translations: [Precordial pain] Episodic Other aftercare (2 sources) Other salvage determiner (current) drug therapy; Translations: [OTH PAYABLE PROCESSOR CURRENT DRUG THERAPY] Onset: 09-04-2022 Episodic Other connective tissue disease (9 sources) Olecranon bursitis; Translations: [Olecranon bursitis, left elbow] Episodic Other connective tissue disease (1 source) Personal history of other diseases of the musculoskeletal system and connective tissue Episodic Other ear and sense organ disorders (1 source) Impacted cerumen, right ear Episodic Other lower respiratory disease (1 source) Cough; Translations: [Cough] 05-07-2024 Episodic Other screening for suspected conditions (not mental disorders or infectious disease) (6 sources) Encounter for screening for malignant neoplasm of prostate; Translations: [Patient encounter status] Onset: 09-04-2022 Episodic Other upper respiratory infections (1 source) Acute maxillary sinusitis, unspecified Episodic Spondylosis; intervertebral disc disorders; other back problems (9 sources) Pain in thoracic spine; Translations: [Pain in thoracic spine] Episodic Sprains and strains (2 sources) Strain of muscle(s) and tendon(s) of the rotator cuff of unspecified shoulder, initial encounter; Translations: [Rotator cuff (capsule) sprain] 02-26-2024 Episodic Substance-related disorders (9 sources) Tobacco user; Translations: [Nicotine dependence, cigarettes, in remission] Chronic Thyroid disorders (20 sources) Autoimmune thyroiditis; Translations: [Autoimmune thyroiditis] Onset: 09-04-2022 Chronic Past or Other Problems Problem Classification Problem Date Documented Date Episodic/Chronic Calculus of urinary tract (1 source) Personal [...] [facility] Basophils Auto (Bld) [#/Vol] on 05-05-2024 Basophils (Bld) [#/Vol] Automated basophil count 0.0-0.1 [facility] Basophils/100 WBC Auto (Bld) on 05-05-2024 Basophils/100 WBC (Bld) Automated basophil % 0.2-2.0 [facility] Eosinophils/100 WBC Auto (Bl d)on 05-05-2024 Eosinophils/100 WBC (Bld) Automated eosinophil % 0.9-7.0 [facility] Erythrocyte distribution wid th Auto (RBC) [Ratio]on 05-05-2024 Erythrocyte distribution width (RBC) [Ratio] Erythrocyte distribution width [Ratio] by Automated count 11.0-15.0 [facility] Estimated glomerular filtrat ion rate (GFR) non- Americanon 05-05-2024 GFR/1.73 sq M.predicted among non-blacks MDRD (S/P/Bld) [Vol rate/Area] Estimated glomerular filtration rate (GFR) non- Low >=60 mL/min/1.73m 2 [facility] Globulin Calc (S) [Mass/Vol] on 05-05-2024 Globulin (S) [Mass/Vol] Serum globulin measurement by calculation (mass/volume) [facility] Hematocrit Auto (Bld) [Volum e fraction]on 05-05-2024 Hematocrit (Bld) [Volume fraction] Hematocrit [Volume Fraction] of Blood by Automated count 42.0-54.0 [facility] Hemoglobin [Mass/volume] in Bloodon 05-05-2024 Hemoglobin (Bld) [Mass/Vol] Hemoglobin [Mass/volume] in Blood 14.0-18.0 [facility] Laboratory - Chemistry and C hemistry - challengeon 05-05-2024 Bilirubin Ql (U) Negative NEGATIVE [facility] Glucose (U) [Mass/Vol] Negative NEGATIVE [facility] Ketones Ql (U) Negative NEGATIVE [facility] pH (U) 6.0 [pH] 5.0-9.0 [facility] Specific gravity (U) [Rel density] 1.025 1.005-1.025 [facility] Urobilinogen Qn (U) 0.2 {Mic'U}/dL 0.2-1.0 [facility] Albumin [Mass/Vol] 3.3 g/dL Low 3.4-5.0 [facility] ALP [Catalytic activity/Vol] 125 U/L High 46-116 [facility] ALT [Catalytic activity/Vol] 32 U/L 16-63 [facility] Amylase [Catalytic activity/Vol] 152 U/L High 25-115 [facility] AST [Catalytic activity/Vol] 22 U/L 15-37 [facility] Bilirubin [Mass/Vol] 0.6 mg/dL 0.2-1.0 [facility] Bilirubin.direct [Mass/Vol] 0.1 mg/dL 0.0-0.2 [facility] Calcium [Mass/Vol] 8.9 mg/dL 8.5-10.1 [facility] Chloride [Moles/Vol] 106 mmol/L 98-107 [facility] CO2 [Moles/Vol] 22.2 mmol/L 21.0-32.0 [facility] Creatinine [Mass/Vol] 2.27 mg/dL High 0.70-1.30 [facility] GFR/1.73 sq M.predicted MDRD (S/P/Bld) [Vol rate/Area] 34 mL/min/{1.73_m2} Low >=60 mL/min/1.73m 2 [facility] Glucose [Mass/Vol] 146 mg/dL High 74-106 [facility] Lipase [Catalytic activity/Vol] 55.0 U/L 16.0-77.0 [facility] Potassium [Moles/Vol] 4.0 mmol/L 3.5-5.1 [facility] Protein [Mass/Vol] 7.5 g/dL 6.4-8.2 [facility] Sodium [Moles/Vol] 141 mmol/L 136-145 [facility] Urea nitrogen [Mass/Vol] 24.0 mg/dL High 7.0-18.0 [facility] Urea nitrogen/Creatinine [Mass ratio] 10.6 mg/mg [facility] - Hematology and Cell countson 05-05-2024 Immature granulocytes/100 WBC (Bld) 0.1 % 0.0-0.5 [facility] - Specimen inform ationon 05-05-2024 Appearance (U) CLEAR CLEAR [facility] Color (U) LT. YELLOW YELLOW [facility] - Urinalysison Leukocyte esterase Test strip Ql (U) Negative NEGATIVE [facility] Mucus Ql (Urine sed) TRACE Abnormal NONE SEEN [facility] Nitrite Ql (U) Negative NEGATIVE [facility] Protein Ql (U) Negative NEG/TRACE [facility] Leukocytes [#/volume] correc zach for nucleated erythrocytes in Blood by Automated counon 05-05-2024 WBC corrected for nucl RBC Auto (Bld) [#/Vol] Leukocytes [#/volume] corrected for nucleated erythrocytes in Blood by Automated coun 4.0-11.0 [facility] Lymphocytes Auto (Bld) [#/Vo l]on 05-05-2024 Lymphocytes (Bld) [#/Vol] Lymphocytes [#/volume] in Blood by Automated count 1.2-3.8 [facility] Lymphocytes/100 WBC Auto (Bl d)on 05-05-2024 Lymphocytes/100 WBC (Bld) Lymphocytes/100 leukocytes in Blood by Automated count Low 20.5-60.0 [facility] MCH Auto (RBC) [Entitic mass ]on 05-05-2024 MCH (RBC) [Entitic mass] MCH [Entitic mass] by Automated count 25.9-34.0 [facility] MCHC Auto (RBC) [Mass/Vol]on 05-05-2024 MCHC (RBC) [Mass/Vol] MCHC [Mass/volume] by Automated count 29.9-35.2 [facility] MCV Auto (RBC) [Entitic vol] on 05-05-2024 MCV (RBC) [Entitic vol] MCV [Entitic volume] by Automated count 80.0-94.0 [facility] Monocytes Auto (Bld) [#/Vol] on 05-05-2024 Monocytes (Bld) [#/Vol] Automated blood monocyte count 0.3-0.8 [facility] Monocytes/100 WBC Auto (Bld) on 05-05-2024 Monocytes/100 WBC (Bld) Automated monocyte % 1.7-12.0 [facility] Neutrophils Auto (Bld) [#/Vo l]on 05-05-2024 Neutrophils (Bld) [#/Vol] Neutrophils [#/volume] in Blood by Automated count 1.4-6.5 [facility] Neutrophils/100 WBC Auto (Bl d)on 05-05-2024 Neutrophils/100 WBC (Bld) Automated neutrophil % 43.0-75.0 [facility] No Panel Informationon 05-05 Urine Bacteria TRACE #/HPF Abnormal NONE SEEN [facility] Urine Occult Blood MODERATE Abnormal NEGATIVE [facility] Urine Other Casts NONE SEEN #/LPF NONE SEEN [facility] Urine Other Crystals None Seen #/HPF None Seen [facility] Urine RBC 10-20 #/HPF Abnormal 0-2 [facility] Urine Squamous Epithelial Cells FEW #/LPF Abnormal NONE/RARE [facility] Urine WBC NONE SEEN #/HPF NONE SEEN [facility] Eosinophils # (Auto) 0.2 10 3/uL 0.0-0.7 [facility] Immature Granulocyte # (Auto) 0.01 10 3/uL 0.00-0.03 [facility] Platelet mean volume Auto (B ld) [Entitic vol]on 05-05-2024 Platelet mean volume (Bld) [Entitic vol] Platelet mean volume [Entitic volume] in Blood by Automated count 9.5-13.5 [facility] Platelets Auto (Bld) [#/Vol] on 05-05-2024 Platelets (Bld) [#/Vol] Platelets [#/volume] in Blood by Automated count 150-450 [facility] RBC Auto (Bld) [#/Vol]on RBC (Bld) [#/Vol] Erythrocytes [#/volu me] in Blood by Automated count 4.70-6.10 [facility] Serum or plasma albumin/glob ulin mass ratioon 05-05-2024 Albumin/Globulin [Mass ratio] Serum or plasma albumin/globulin mass ratio [facility] Serum or plasma anion gap de terminationon 05-05-2024 Anion gap [Moles/Vol] Serum or plasma anion gap determination [facility] Estimated glomerular filtrat ion rate (GFR) non- Americanon 02-20-2024 GFR/1.73 sq M.predicted among non-blacks MDRD (S/P/Bld) [Vol rate/Area] 41 mL/min/{1.73_m2} Low >=60 [facility] GFR/1.73 sq M.predicted among non-blacks MDRD (S/P/Bld) [Vol rate/Area] Estimated glomerular filtration rate (GFR) non- Low >=60 [facility] - Chemistry and C hemistry - challengeon 02-20-2024 Calcium [Mass/Vol] 9.2 mg/dL 8.5-10.1 [facility] Chloride [Moles/Vol] 105 mmol/L 98-107 [facility] CO2 [Moles/Vol] 24.1 mmol/L 21.0-32.0 [facility] Creatinine [Mass/Vol] 1.65 mg/dL High 0.70-1.30 [facility] GFR/1.73 sq M.predicted MDRD (S/P/Bld) [Vol rate/Area] 49 mL/min/{1.73_m2} Low >=60 [facility] Glucose [Mass/Vol] 112 mg/dL High 74-106 [facility] Potassium [Moles/Vol] 4.0 mmol/L 3.5-5.1 [facility] Sodium [Moles/Vol] 138 mmol/L 136-145 [facility] Urea nitrogen [Mass/Vol] 20.0 mg/dL High 7.0-18.0 [facility] Urea nitrogen/Creatinine [Mass ratio] 12.1 mg/mg [facility] Serum or plasma anion gap de terminationon 02-20-2024 Anion gap [Moles/Vol] 12.9 mmol/L [facility] Anion gap [Moles/Vol] Serum or plasma anion gap determination [facility] Basophils Auto (Bld) [#/Vol] on 09-04-2023 Basophils (Bld) [#/Vol] 0.1 10 3/uL 0.0-0.1 [facility] Basophils/100 WBC Auto (Bld) on 09-04-2023 Basophils/100 WBC (Bld) 1.1 % 0.2-2.0 [facility] Cholesterol in LDL Calc [Mas s/Vol]on 09-04-2023 Cholesterol in LDL [Mass/Vol] 50.0 mg/dL [facility] Comment on above: <100 mg/dl [id number] 0-129 mg/dl NEAR OR ABOVE [id number] mg/dl BORDERLINE [id number] mg/dl HIGH>190 mg/dl VERY HIGH Cholesterol in VLDL Calc [Ma ss/Vol]on 09-04-2023 Cholesterol in VLDL [Mass/Vol] 33.8 mg/dL [facility] Eosinophils/100 WBC Auto (Bl d)on 09-04-2023 Eosinophils/100 WBC (Bld) 2.7 % 0.9-7.0 [facility] Erythrocyte distribution wid th Auto (RBC) [Ratio]on 09-04-2023 Erythrocyte distribution width (RBC) [Ratio] 13.8 % 11.0-15.0 [facility] Estimated glomerular filtrat ion rate (GFR) non- Americanon 09-04-2023 GFR/1.73 sq M.predicted among non-blacks MDRD (S/P/Bld) [Vol rate/Area] 34 mL/min/{1.73_m2} >=60 [facility] Globulin Calc (S) [Mass/Vol] on 09-04-2023 Globulin (S) [Mass/Vol] 3.8 g/dL [facility] Hematocrit Auto (Bld) [Volum e fraction]on 09-04-2023 Hematocrit (Bld) [Volume fraction] 46.4 % 42.0-54.0 [facility] Hemoglobin [Mass/volume] in Bloodon 09-04-2023 Hemoglobin (Bld) [Mass/Vol] 15.2 g/dL 14.0-18.0 [facility] - Chemistry and C hemistry - challengeon 09-04-2023 Albumin [Mass/Vol] 3.5 g/dL 3.4-5.0 [facility] ALP [Catalytic activity/Vol] 120 U/L 46-116 [facility] ALT [Catalytic activity/Vol] 36 U/L 16-63 [facility] AST [Catalytic activity/Vol] 21 U/L 15-37 [facility] Bilirubin [Mass/Vol] 1.2 mg/dL 0.2-1.0 [facility] Calcium [Mass/Vol] 9.3 mg/dL 8.5-10.1 [facility] Chloride [Moles/Vol] 106 mmol/L 98-107 [facility] Cholesterol [Mass/Vol] 116 mg/dL <=200 [facility] Cholesterol in HDL [Mass/Vol] 33 mg/dL 40-60 [facility] Comment on above: > or =60 mg/dl - LOW CARDIOVASCULAR RISK<40 mg/dl - HIGH CARDIOVASCULAR RISK CO2 [Moles/Vol] 23.6 mmol/L 21.0-32.0 [facility] Creatinine [Mass/Vol] 1.91 mg/dL 0.70-1.30 [facility] GFR/1.73 sq M.predicted MDRD (S/P/Bld) [Vol rate/Area] 42 mL/min/{1.73_m2} >=60 [facility] Glucose [Mass/Vol] 115 mg/dL 74-106 [facility] Potassium [Moles/Vol] 4.2 mmol/L 3.5-5.1 [facility] Protein [Mass/Vol] 7.3 g/dL 6.4-8.2 [facility] Sodium [Moles/Vol] 142 mmol/L 136-145 [facility] Triglyceride [Mass/Vol] 169 mg/dL <=150 [facility] TSH Qn 0.864 m[IU]/L 0.358-3.740 [facility] Urea nitrogen [Mass/Vol] 22.0 mg/dL 7.0-18.0 [facility] Urea nitrogen/Creatinine [Mass ratio] 11.5 mg/mg [facility] - Hematology and Cell countson 09-04-2023 Immature granulocytes/100 WBC (Bld) 0.1 % 0.0-0.5 [facility] Leukocytes [#/volume] correc zach for nucleated erythrocytes in Blood by Automated counon 09-04-2023 WBC corrected for nucl RBC Auto (Bld) [#/Vol] 7.0 10 3/uL 4.0-11.0 [facility] Lymphocytes Auto (Bld) [#/Vo l]on 09-04-2023 Lymphocytes (Bld) [#/Vol] 2.0 10 3/uL 1.2-3.8 [facility] Lymphocytes/100 WBC Auto (Bl d)on 09-04-2023 Lymphocytes/100 WBC (Bld) 28.1 % 20.5-60.0 [facility] MCH Auto (RBC) [Entitic mass ]on 09-04-2023 MCH (RBC) [Entitic mass] 29.2 pg 25.9-34.0 [facility] MCHC Auto (RBC) [Mass/Vol]on 09-04-2023 MCHC (RBC) [Mass/Vol] 32.8 g/dL 29.9-35.2 [facility] MCV Auto (RBC) [Entitic vol] on 09-04-2023 MCV (RBC) [Entitic vol] 89.1 fL 80.0-94.0 [facility] Monocytes Auto (Bld) [#/Vol] on 09-04-2023 Monocytes (Bld) [#/Vol] 0.7 10 3/uL 0.3-0.8 [facility] Monocytes/100 WBC Auto (Bld) on 09-04-2023 Monocytes/100 WBC (Bld) 10.0 % 1.7-12.0 [facility] Neutrophils Auto (Bld) [#/Vo l]on 09-04-2023 Neutrophils (Bld) [#/Vol] 4.0 10 3/uL 1.4-6.5 [facility] Neutrophils/100 WBC Auto (Bl d)on 09-04-2023 Neutrophils/100 WBC (Bld) 58.0 % 43.0-75.0 [facility] No Panel Informationon 09-03 Eosinophils # (Auto) 0.2 10 3/uL 0.0-0.7 [facility] Immature Granulocyte # (Auto) 0.01 10 3/uL 0.00-0.03 [facility] Prostate Specific Antigen Screen 1.90 ng/mL <=4.00 [facility] Platelet mean volume Auto (B ld) [Entitic vol]on 09-04-2023 Platelet mean volume (Bld) [Entitic vol] 9.6 fL 9.5-13.5 [facility] Platelets Auto (Bld) [#/Vol] on 09-04-2023 Platelets (Bld) [#/Vol] 200 10 3/uL 150-450 [facility] RBC Auto (Bld) [#/Vol]on RBC (Bld) [#/Vol] 5.21 10 6/uL 4.70-6.10 [facility] Serum or plasma albumin/glob ulin mass ratioon 09-04-2023 Albumin/Globulin [Mass ratio] 0.9 {ratio} [facility] Serum or plasma anion gap de terminationon 09-04-2023 Anion gap [Moles/Vol] 16.6 mmol/L [facility] Serum or plasma total choles terol/high density lipoprotein (HDL) cholesterol mass rolf 09-04-2023 Cholesterol.total/C holesterol in HDL [Mass ratio] 3.5 {ratio} [facility] Comment on above: 3.3 - 4.4 LOW RISK4. 4 - 7.1 AVERAGE RISK7.1 - 11.0 MODERATE RISK>11.0 HIGH RISK CBC AUTO DIFFon 08-29-2022 BASO # 0.1 103/ul Normal 0.0-0.1 [facility] Comment on above: Performed By: #### C BC #### [facility] [address] [place] [address] Dr. Mj Mendoza Basophils/100 WBC (Bld) 1.6 % Normal 0.2-2.0 [facility] Comment on above: Performed By: #### C BC #### [facility] [address] [place] [address] Dr. Mj Mendoza EO # 0.3 103/ul Normal 0.0-0.7 [facility] Comment on above: Performed By: #### C BC #### [facility] [address] [place] [address] Dr. Mj Mendoza Eosinophils/100 WBC (Bld) 3.9 % Normal 0.9-7.0 [facility] Comment on above: Performed By: #### C BC #### [facility] [address] [place] [address] Dr. Mj Mendoza Erythrocyte distribution width (RBC) [Ratio] 13.9 % Normal 11.0-15.0 [facility] Comment on above: Performed By: #### C BC #### [facility] [address] [place] [address] Dr. Mj Mendoza Hematocrit (Bld) [Volume fraction] 49.6 % Normal 42.0-54.0 [facility] Comment on above: Performed By: #### C BC #### [facility] [address] [place] [address] Dr. Mj Mendoza Hemoglobin (Bld) [Mass/Vol] 16.7 g/dL Normal 14.0-18.0 [facility] Comment on above: Performed By: #### C BC #### [facility] [address] [place] [address] Dr. Mj Mendoza IG # 0.03 10e3/ul Normal 0.00-0.03 [facility] Comment on above: Performed By: #### C BC #### [facility] [address] [place] [address] Dr. Mj Mendoza IG % 0.5 % Normal 0.0-0.5 [facility] Comment on above: Performed By: #### C BC #### [facility] [address] [place] [address] Dr. Mj Mendoza LYMPH # 2.2 103/ul Normal 1.2-3.8 [facility] Comment on above: Performed By: #### C BC #### [facility] [address] [place] [address] Dr. Mj Mednoza Lymphocytes/100 WBC (Bld) 33.9 % Normal 20.5-60.0 [facility] Comment on above: Performed By: #### C BC #### [facility] [address] [place] [address] Dr. Mj Mendoza MANUAL DIFF REQ NO Normal [facility] Comment on above: Performed By: #### C BC #### [facility] [address] [place] [address] Dr. Mj Mendoza MCH (RBC) [Entitic mass] 29.2 pg Normal 25.9-34.0 [facility] Comment on above: Performed By: #### C BC #### [facility] [address] [place] [address] Dr. Mj Mendoza MCHC (RBC) [Mass/Vol] 33.7 g/dL Normal 29.9-35.2 [facility] Comment on above: Performed By: #### C BC #### [facility] [address] [place] [address] Dr. Mj Mendoza MCV (RBC) [Entitic vol] 86.9 fL Normal 80.0-94.0 [facility] Comment on above: Performed By: #### C BC #### [facility] [address] [place] [address] Dr. Mj Mendoza MONO # 0.7 103/ul Normal 0.3-0.8 [facility] Comment on above: Performed By: #### C BC #### [facility] [address] [id number] Mj Mendoza Monocytes/100 WBC (Bld) 10.7 % Normal 1.7-12.0 [facility] Comment on above: Performed By: #### C BC #### [facility] [address] [address] [address] Mj Mendoza NEUT # 3.1 103/ul Normal 1.4-6.5 [facility] Comment on above: Performed By: #### C BC #### [facility] [address] [address] [address] Mj Mendoza Neutrophils/100 WBC (Bld) 49.4 % Normal 43.0-75.0 [facility] Comment on above: Performed By: #### C BC #### [facility] [address] [place] [address] Dr. Mj Mendoza Platelet mean volume (Bld) [Entitic vol] 8.8 fL Critically low 9.5-13.5 [facility] Comment on above: Performed By: #### C BC #### [facility] [facility] [address] [place] [address] Dr. Mj Mendoza PLT 193 103/ul Normal 150-450 [facility] Comment on above: Performed By: #### C BC #### [facility] [address] [place] [address] Dr. Mj Mendoza RBC 5.71 106/ul Normal 4.70-6.10 [facility] Comment on above: Performed By: #### C BC #### [facility] [address] [place] [address] Dr. Mj Mendoza WBC 6.3 103/ul Normal 4.0-11.0 [facility] Comment on above: Performed By: #### C BC #### [facility] [address] [place], [place] [id number] Dr. Mj Mendoza LIPID PROFILEon 08-29-2022 CHOL-HDL RATIO NORM SEE BELOW Normal [facility] Comment on above: Result Comment: 3.3 - 4.4 LOW RISK 4.4 - 7.1 AVERAGE RISK 7.1 - 11.0 MODERATE RISK >11.0 HIGH RISK Performed By: #### L IPID, ALT, TSH, BMP #### [facility] [address] [address] [address] Mj Mendoza Cholesterol [Mass/Vol] 144 mg/dL Normal <=200 [facility] Comment on above: Performed By: #### L IPID, ALT, TSH, BMP #### [facility] [address] [address] [address] Mj Mendoza Cholesterol in HDL [Mass/Vol] 36 mg/dL Critically low 40-60 [facility] Comment on above: Performed By: #### L IPID, ALT, TSH, BMP #### [facility] [address] [address] [address] Mj Mendoza Cholesterol in LDL [Mass/Vol] 71.8 mg/dL Normal [facility] Comment on above: Performed By: #### L IPID, ALT, TSH, BMP #### [facility] [address] [address] [address] Mj Mendoza Cholesterol.total/C holesterol in HDL [Mass ratio] 4.0 {ratio} Normal [facility] Comment on above: Performed By: #### L IPID, ALT, TSH, BMP #### [facility] [address] [address] [address] Mj Mendoza HDL NORMAL > or = 60 mg/dl - LO W CARDIOVASCULAR RISK <40 mg/dl - HIGH CARDIOVASCULAR RISK Normal [facility] Comment on above: Performed By: #### L IPID, ALT, TSH, BMP #### [facility] [address] [address] [address] Mj Mendoza LDL CALC NORMAL SEE BELOW Normal [facility] Comment on above: Result Comment: <100 mg/dl OPTIMAL 100 - 129 mg/dl NEAR OR ABOVE OPTIMAL 130 - 159 mg/dl BORDERLINE HIGH 160 - 189 mg/dl HIGH >190 mg/dl VERY HIGH Performed By: #### L IPID, ALT, TSH, BMP #### [facility] [address] [address] [address] Mj Mendoza Triglyceride [Mass/Vol] 181 mg/dL Critically high <=150 [facility] Comment on above: Performed By: #### L IPID, ALT, TSH, BMP #### [facility] [address] [address] [address] Mj Mendoza VLDL CALC 36.2 mg/dL Normal [facility] Comment on above: Performed By: #### L IPID, ALT, TSH, BMP #### [facility] [address] [place] [address] Dr. Mj Mendoza PROF CHEM 8 (BAS METB)on Anion gap [Moles/Vol] 10.0 mmol/L Normal [facility] Comment on above: Performed By: #### L IPID, ALT, TSH, BMP #### [facility] [address] [place] [address] Dr. Mj Mendoza Calcium [Mass/Vol] 9.2 mg/dL Normal 8.5-10.1 [facility] Comment on above: Performed By: #### L IPID, ALT, TSH, BMP #### [facility] [address] [place] [address] Dr. Mj Mendoza Chloride [Moles/Vol] 105 mmol/L Normal 98-107 [facility] Comment on above: Performed By: #### L IPID, ALT, TSH, BMP #### [facility] [address] [place] [address] Dr. Mj Mendoza CO2 [Moles/Vol] 27.2 mmol/L Normal 21.0-32.0 [facility] Comment on above: Performed By: #### L IPID, ALT, TSH, BMP #### [facility] [address] [place] [address] Dr. Mj Mendoza Creatinine [Mass/Vol] 1.67 mg/dL Critically high 0.70-1.30 [facility] Comment on above: Performed By: #### L IPID, ALT, TSH, BMP #### [facility] [address] [place] [address] Dr. Mj Mendoza EGFR-AF EQUATORIAL GUINEAN 49 mL/min/1.73m2 Critically low >=60 [facility] Comment on above: Performed By: #### L IPID, ALT, TSH, BMP #### [facility] [address] [place] [address] Dr. Mj Mendoza EGFR-NON AF EQUATORIAL GUINEAN 40 mL/min/1.73m2 Critically low >=60 [facility] Comment on above: Performed By: #### L IPID, ALT, TSH, BMP #### [facility] [address] [place] [address] Dr. Mj Mendoza Glucose [Mass/Vol] 115 mg/dL Critically high 74-106 [facility] Comment on above: Performed By: #### L IPID, ALT, TSH, BMP #### [facility] [address] [place] [address] Dr. Mj Mendoza Potassium [Moles/Vol] 4.2 mmol/L Normal 3.5-5.1 [facility] Comment on above: Performed By: #### L IPID, ALT, TSH, BMP #### [facility] [address] [place] [address] Dr. Mj Mendoza Sodium [Moles/Vol] 138 mmol/L Normal 136-145 [facility] Comment on above: Performed By: #### L IPID, ALT, TSH, BMP #### [facility] [address] [place] [address] Dr. Mj Mendoza Urea nitrogen [Mass/Vol] 23.0 mg/dL Critically high 7.0-18.0 [facility] Comment on above: Performed By: #### L IPID, ALT, TSH, BMP #### [facility] [address] [place] [address] Dr. Mj Mendoza Urea nitrogen/Creatinine [Mass ratio] 13.8 mg/mg Normal [facility] Comment on above: Performed By: #### L IPID, ALT, TSH, BMP #### [facility] [address] [place] [address] Dr. Mj Mendoza [facility] 08-29-2022 ALT [Catalytic activity/Vol] 38 U/L Normal 16-63 [facility] Comment on above: Performed By: #### L IPID, ALT, TSH, BMP #### [facility] [address] [place], [place] [address] Dr. Mj Mendoza TSHon 08-29-2022 TSH 1.932 uIU/mL Normal 0.358-3.740 [facility] Comment on above: Performed By: #### L IPID, ALT, TSH, BMP #### [facility] [address] [place], [place] [address] ABD/PELVIS WO CONon [...] TAMIKA SANTIZO Date: 2022-05-06 23:26 Normal [facility] CBC AUTO DIFFon 05-06-2022 BASO # 0.1 103/ul Normal 0.0-0.1 [facility] Comment on above: Performed By: #### C BC #### [facility] [address] [address] [address] Mj Mendoza Basophils/100 WBC (Bld) 0.9 % Normal 0.2-2.0 [facility] Comment on above: Performed By: #### C BC #### [facility] [address] [address] [address] Mj Mendoza EO # 0.1 103/ul Normal 0.0-0.7 [facility] Comment on above: Performed By: #### C BC #### [facility] [address] [address] [address] Mj Mendoza Eosinophils/100 WBC (Bld) 1.8 % Normal 0.9-7.0 [facility] Comment on above: Performed By: #### C BC #### [facility] [address] [address] [address] Mj Mendoza Erythrocyte distribution width (RBC) [Ratio] 14.0 % Normal 11.0-15.0 [facility] Comment on above: Performed By: #### C BC #### [facility] [address] [address] [address] Mj Mendoza Hematocrit (Bld) [Volume fraction] 47.2 % Normal 42.0-54.0 [facility] Comment on above: Performed By: #### C BC #### [facility] [address] [place] [address] Dr. Mj Mendoza Hemoglobin (Bld) [Mass/Vol] 16.5 g/dL Normal 14.0-18.0 [facility] Comment on above: Performed By: #### C BC #### [facility] [address] [place] [address] Dr. Mj Mendoza IG # 0.01 10e3/ul Normal 0.00-0.03 [facility] Comment on above: Performed By: #### C BC #### [facility] [address] [place] [address] Dr. Mj Mendoza IG % 0.1 % Normal 0.0-0.5 [facility] Comment on above: Performed By: #### C BC #### [facility] [address] [place] [address] Dr. Mj Mendoza LYMPH # 1.8 103/ul Normal 1.2-3.8 [facility] Comment on above: Performed By: #### C BC #### [facility] [address] [place] [address] Dr. Mj Mendoza Lymphocytes/100 WBC (Bld) 23.0 % Normal 20.5-60.0 [facility] Comment on above: Performed By: #### C BC #### [facility] [address] [place] [address] Dr. Mj Mendoza MANUAL DIFF REQ NO Normal [facility] Comment on above: Performed By: #### C BC #### [facility] [address] [place] [address] Dr. Mj Mendoza MCH (RBC) [Entitic mass] 29.8 pg Normal 25.9-34.0 [facility] Comment on above: Performed By: #### C BC #### [facility] [address] [address] [address] Mj Mendoza MCHC (RBC) [Mass/Vol] 35.0 g/dL Normal 29.9-35.2 [facility] Comment on above: Performed By: #### C BC #### [facility] [address] [address] [address] Mj Mendoza MCV (RBC) [Entitic vol] 85.2 fL Normal 80.0-94.0 [facility] Comment on above: Performed By: #### C BC #### [facility] [address] [address] [address] Mj Mendoza MONO # 0.7 103/ul Normal 0.3-0.8 [facility] Comment on above: Performed By: #### C BC #### [facility] [address] [place] [address] Dr. Mj Mendoza Monocytes/100 WBC (Bld) 8.5 % Normal 1.7-12.0 [facility] Comment on above: Performed By: #### C BC #### [facility] [address] [place] [address] Dr. Mj Mendoza NEUT # 5.1 103/ul Normal 1.4-6.5 [facility] Comment on above: Performed By: #### C BC #### [facility] [address] [place] [address] Dr. Mj Mendoza Neutrophils/100 WBC (Bld) 65.7 % Normal 43.0-75.0 [facility] Comment on above: Performed By: #### C BC #### [facility] [address] [address] [address] Mj Mendoza Platelet mean volume (Bld) [Entitic vol] 9.1 fL Critically low 9.5-13.5 [facility] Comment on above: Performed By: #### C BC #### [facility] [address] [address] [address] Mj Mendoza PLT 195 103/ul Normal 150-450 [facility] Comment on above: Performed By: #### C BC #### [facility] [address] [address] [address] Mj Mendoza RBC 5.54 106/ul Normal 4.70-6.10 [facility] Comment on above: Performed By: #### C BC #### [facility] [address] [place] [address] Dr. Mj Mendoza WBC 7.8 103/ul Normal 4.0-11.0 [facility] Comment on above: Performed By: #### C BC #### [facility] [address] [place] [address] Dr. Mj Mendoza ER URINE PROFILEon 2 Bilirubin Ql (U) Negative Normal NEGATIVE [facility] Comment on above: Performed By: #### U MICRO, ERUR #### [facility] [address] [place] [address] Dr. Mj Mendoza Clarity (U) CLEAR Normal CLEAR [facility] Comment on above: Performed By: #### U MICRO, ERUR #### [facility] [address] [place] [address] Dr. Mj Mendoza Color (U) YELLOW Normal YELLOW [facility] Comment on above: Performed By: #### U MICRO, ERUR #### [facility] [address] [place] [address] Dr. Mj Mendoza ERUAHD A micrscopic examina tion will be performed if indicated. Normal [facility] Comment on above: Performed By: #### U MICRO, ERUR #### [facility] [address] [place] [address] Dr. Mj Mendoza Glucose Ql (U) Negative Normal NEGATIVE [facility] Comment on above: Performed By: #### U MICRO, ERUR #### [facility] [address] [place] [address] Dr. Mj Mendoza Hemoglobin Ql (U) MODERATE Abnormal NEGATIVE [facility] Comment on above: Performed By: #### U MICRO, ERUR #### [facility] [address] [place] [address] Dr. Mj Mendoza Ketones Ql (U) Negative Normal NEGATIVE [facility] Comment on above: Performed By: #### U MICRO, ERUR #### [facility] [address] [place] [address] Dr. Mj Mendoza LEUKOCYTES Negative Normal NEGATIVE [facility] Comment on above: Performed By: #### U MICRO, ERUR #### [facility] [address] [place] [address] Dr. Mj Mendoza Nitrite Ql (U) Negative Normal NEGATIVE [facility] Comment on above: Performed By: #### U MICRO, ERUR #### [facility] [address] [place] [address] Dr. Mj Mendoza pH (U) 5.0 [pH] Normal 5-9 [facility] Comment on above: Performed By: #### U MICRO, ERUR #### [facility] [address] [place] [address] Dr. Mj Mendoza SPEC GRAVITY >=1.030 Abnormal 1.005-<=1.025 [facility] Comment on above: Performed By: #### U MICRO, ERUR #### [facility] [address] [place] [address] Dr. Mj Mendoza UA PROTEIN TRACE Normal NEGATIVE/ TRACE [facility] Comment on above: Performed By: #### U MICRO, ERUR #### [facility] [address] [place] [address] Dr. Mj Mendoza UR MICRO IND INDICATED Normal [facility] Comment on above: Performed By: #### U MICRO, ERUR #### [facility] [address] [place] [address] Dr. Mj Mendoza Urobilinogen Qn (U) 0.2 {Mic'U}/dL Normal 0.2 - 1. 0 [facility] Comment on above: Performed By: #### U MICRO, ERUR #### [facility] [address] [place] [address] Dr. Mj Mendoza PROF 14(COMP METB)on 022 Albumin [Mass/Vol] 3.7 g/dL Normal 3.4-5.0 [facility] Comment on above: Performed By: #### C MP #### [facility] [address] [place] [address] Dr. Mj Mendoza Albumin/Globulin [Mass ratio] 1.0 {ratio} Normal [facility] Comment on above: Performed By: #### C MP #### [facility] [address] [place] [address] Dr. Mj Mendoza ALP [Catalytic activity/Vol] 135 U/L Critically high 46-116 [facility] Comment on above: Performed By: #### C MP #### [facility] [address] [place] [address] Dr. Mj Mendoza ALT [Catalytic activity/Vol] 47 U/L Normal 16-63 [facility] Comment on above: Performed By: #### C MP #### [facility] [address] [place] [address] Dr. Mj Mendoza Anion gap [Moles/Vol] 12.7 mmol/L Normal [facility] Comment on above: Performed By: #### C MP #### [facility] [address] [place] [address] Dr. Mj Mendoza AST [Catalytic activity/Vol] 22 U/L Normal 15-37 [facility] Comment on above: Performed By: #### C MP #### [facility] [address] [place] [address] Dr. Mj Mendoza Bilirubin [Mass/Vol] 0.7 mg/dL Normal 0.2-1.0 [facility] Comment on above: Performed By: #### C MP #### [facility] [address] [place] [address] Dr. Mj Mendoza Calcium [Mass/Vol] 9.0 mg/dL Normal 8.5-10.1 [facility] Comment on above: Performed By: #### C MP #### [facility] [address] [place] [address] Dr. Mj Mendoza Chloride [Moles/Vol] 103 mmol/L Normal 98-107 [facility] Comment on above: Performed By: #### C MP #### [facility] [address] [place] [address] Dr. Mj Mendoza CO2 [Moles/Vol] 23.1 mmol/L Normal 21.0-32.0 [facility] Comment on above: Performed By: #### C MP #### [facility] [address] [address] [address] Mj Mendoza Creatinine [Mass/Vol] 1.79 mg/dL Critically high 0.70-1.30 [facility] Comment on above: Performed By: #### C MP #### [facility] [address] [address] [address] Mj Mendoza EGFR-AF EQUATORIAL GUINEAN 45 mL/min/1.73m2 Critically low >=60 [facility] Comment on above: Performed By: #### C MP #### [facility] [address] [address] [address] Mj Mendoza EGFR-NON AF EQUATORIAL GUINEAN 37 mL/min/1.73m2 Critically low >=60 [facility] Comment on above: Performed By: #### C MP #### [facility] [address] [address] [address] Mj Mendoza Globulin (S) [Mass/Vol] 3.8 g/dL Normal [facility] Comment on above: Performed By: #### C MP #### [facility] [address] [place] [address] Dr. Mj Mendoza Glucose [Mass/Vol] 162 mg/dL Critically high 74-106 [facility] Comment on above: Performed By: #### C MP #### [facility] [address] [address] [address] Mj Mendoza Potassium [Moles/Vol] 3.8 mmol/L Normal 3.5-5.1 [facility] Comment on above: Performed By: #### C MP #### [facility] [address] [address] [address] Mj Mendoza Protein [Mass/Vol] 7.5 g/dL Normal 6.4-8.2 [facility] Comment on above: Performed By: #### C MP #### [facility] [address] [address] [address] Mj Mendoza Sodium [Moles/Vol] 135 mmol/L Critically low 136-145 [facility] Comment on above: Performed By: #### C MP #### [facility] [address] [address] [address] Mj Mendoza Urea nitrogen [Mass/Vol] 23.0 mg/dL Critically high 7.0-18.0 [facility] Comment on above: Performed By: #### C MP #### [facility] [address] [address] [address] Mj Mendoza Urea nitrogen/Creatinine [Mass ratio] 12.8 mg/mg Normal [facility] Comment on above: Performed By: #### C MP #### [facility] [address] [address] [address] Mj Mendoza URINE MICROSCOPIC ONLYon BACTERIA NONE SEEN Normal NONE SEEN [facility] Comment on above: Performed By: #### U MICRO, ERUR #### [facility] [address] [place] [address] Dr. Mj Mendoza Bacteria identified Cx Nom (U) NOT INDICATED Normal [facility] Comment on above: Performed By: #### U MICRO, ERUR #### [facility] [address] [address] [address] Mj Mendoza CAST NONE SEEN Normal NONE SEEN [facility] Comment on above: Performed By: #### U MICRO, ERUR #### [facility] [address] [place] [address] Dr. Mj Mendoza Crystals LM Nom (Urine sed) NONE SEEN Normal NONE SEEN [facility] Comment on above: Performed By: #### U MICRO, ERUR #### [facility] [address] [place] [address] Dr. Mj Mendoza Epithelial cells LM Ql (Urine sed) FEW Abnormal NONE SEEN /RARE [facility] Comment on above: Performed By: #### U MICRO, ERUR #### [facility] [address] [place] [address] Dr. Mj Mendoza MUCOUS TRACE Abnormal NONE SEEN [facility] Comment on above: Performed By: #### U MICRO, ERUR #### [facility] [address] [place] [address] Dr. Mj Mendoza RBC 2-5 Abnormal 0-2 [facility] Comment on above: Performed By: #### U MICRO, ERUR #### [facility] [address] [address] [address] Mj Mendoza WBC NONE SEEN Normal NONE SEEN [facility] Comment on above: Performed By: #### U MICRO, ERUR #### [facility] [address] [address] [address] Mj Mendoza Vital Signs Date Time Vital Sign Value Performing Clinician Facility 05-07-2024 09:33-0500 Body height 182.[address] [facility] 05-07-2024 09:33-0500 Body mass index (BMI) [Ratio] 27.1 kg/m2 [facility] 05-07-2024 09:33-0500 Body weight 90.[address] [facility] 05-07-2024 09:33-0500 Diastolic blood pressure 84 mm[Hg] [facility] 05-07-2024 09:33-0500 Heart rate 88 /min [facility] 05-07-2024 09:33-0500 Respiratory rate 12 /min [facility] 05-07-2024 09:33-0500 Systolic blood pressure 134 mm[Hg] [facility] 02-26-2024 09:40-0400 Body height 182.[address] [facility] 02-26-2024 09:40-0400 Body mass index (BMI) [Ratio] 27.4 kg/m2 [facility] 02-26-2024 09:40-0400 Body weight 91.[address] [facility] 02-26-2024 09:40-0400 Diastolic blood pressure 82 mm[Hg] [facility] 02-26-2024 09:40-0400 Heart rate 56 /min [facility] 02-26-2024 09:40-0400 Respiratory rate 12 /min [facility] 02-26-2024 09:40-0400 Systolic blood pressure 165 mm[Hg] [facility] 09-10-2023 09:36-0400 Body height 182.[address] [facility] 09-10-2023 09:36-0400 Body mass index (BMI) [Ratio] 27.3 kg/m2 [facility] 09-10-2023 09:36-0400 Body weight 91.[address] [facility] 09-10-2023 09:36-0400 Diastolic blood pressure 80 mm[Hg] [facility] 09-10-2023 09:36-0400 Heart rate 57 /min [facility] 09-10-2023 09:36-0400 Respiratory rate 12 /min [facility] 09-10-2023 09:36-0400 Systolic blood pressure 130 mm[Hg] [facility] 03-26-2023 15:00-0400 Body height 182.88 cm Jacob Ball Other [facility] [employer] Other 03-26-2023 15:00-0400 Body mass index (BMI) [Ratio] 27.61 kg/m2 Jacob Ball Other [employer] [facility] [employer] Other 03-26-2023 15:00-0400 Body weight 92.35 kg Jacob Ball Other [facility] [employer] Other 03-26-2023 15:00-0400 Diastolic blood pressure 70 mm[Hg] Jacob Ball Other [employer] [facility] [employer] Other 03-26-2023 15:00-0400 Respiratory rate 12 /min Jacob Ball Other [employer] [facility] [employer] Other 03-26-2023 15:00-0400 Systolic blood pressure 133 mm[Hg] Jacob Ball Other [employer] Other 03-06-2023 10:30-0400 Body height 182.88 cm Jacob Ball Other [facility] [employer] Other 03-06-2023 10:30-0400 Body mass index (BMI) [Ratio] 27.31 kg/m2 Jacob Ball Other [employer] Other 03-06-2023 10:30-0400 Body weight 91.36 kg Jacob Ball Other [employer] Other 03-06-2023 10:30-0400 Diastolic blood pressure 90 mm[Hg] Jacob Ball Other [employer] Other 03-06-2023 10:30-0400 Respiratory rate 12 /min Jacob Ball Other [employer] Other 03-06-2023 10:30-0400 Systolic blood pressure 145 mm[Hg] Jacob Ball Other [employer] Other 09-05-2022 14:30-0400 Body height 182.88 cm Jacob Ball Other [employer] Other 09-05-2022 14:30-0400 Body mass index (BMI) [Ratio] 28.1 kg/m2 Jacob Ball Other [employer] Other 09-05-2022 14:30-0400 Body weight 93.99 kg Jacob Ball Other [employer] Other 09-05-2022 14:30-0400 Diastolic blood pressure 98 mm[Hg] Jacob Ball Other [employer] Other 09-05-2022 14:30-0400 Respiratory rate 12 /min Jacob Ball Other [employer] Other 09-05-2022 14:30-0400 Systolic blood pressure 164 mm[Hg] Jacob Ball Other [employer] Other Encounters Encounter Date Encounter Type Care Provider Facility Start: 05-07-2024 End: 05-07-2024 ambulatory [facility] Work Phone: Start: 05-07-2024 End: 05-07-2024 Patient encounter procedure [facility] Work Phone: Start: 05-05-2024 Non-patient / Non-visit Former[facility] Work Phone: Start: 05-05-2024 Non-patient / Non-visit Former[facility] Work Phone: Start: 02-26-2024 End: 02-26-2024 ambulatory [facility] Work Phone: Start: 02-26-2024 End: 02-26-2024 Patient encounter procedure Former[facility] Work Phone: Start: 02-20-2024 Non-patient / Non-visit Formerly [facility] Work Phone: Start: 09-10-2023 End: 09-10-2023 ambulatory [facility] Work Phone: Start: 09-10-2023 End: 09-10-2023 Patient encounter procedure Former[facility] Work Phone: Start: 09-04-2023 Non-patient / Non-visit Former[facility] Work Phone: Start: 09-03-2023 Non-patient / Non-visit [facility] Work Phone: Start: 06-19-2023 End: 06-19-2023 ambulatory Jacob Wild Other [employer] Other Start: 06-19-2023 Telephone encounter Jacob Hook [facility] Start: 04-24-2023 End: 04-24-2023 ambulatory Jacob Hook Other [employer] Other Start: 04-24-2023 Telephone encounter Jacob Hook [facility] Start: 04-13-2023 End: 04-13-2023 ambulatory Jacob Hook Other [employer] Other Start: 04-13-2023 Nursing evaluation o f patient and report Jacob Hook [facility] Start: 03-26-2023 End: 03-26-2023 ambulatory Jacob Hook Other [employer] Other Start: 03-26-2023 Office outpatient vi sit 15 minutes Jacob Hook [facility] Start: 03-06-2023 End: 03-06-2023 ambulatory Jacob Hook Other [employer] Other Start: 03-06-2023 Office outpatient vi sit 25 minutes Jacob Hook [facility] Start: 12-13-2022 End: 12-13-2022 ambulatory Jacob Hook Other [employer] Other Start: 12-13-2022 Telephone encounter Jacob Hook [facility] Start: 09-05-2022 End: 09-05-2022 ambulatory Jacob Wild Other [employer] Other Start: 09-05-2022 Patient encounter procedure Jacob Hook [facility] Start: 08-29-2022 End: 08-30-[address] JACOB HOOK Facility:[facility] Start: 08-27-2022 End: 08-27-2022 ambulatory Jacob Wild Other [employer] Other Start: 08-27-2022 Telephone encounter Jacob Wild [facility] Start: 05-06-2022 End: 05-07-[address] JACOB HOOK Facility:[facility] Procedures Date Procedure Procedure Detail Performing Clinician Start: 08-29-[address] S[place]HAR [place] Comment on above: Performed By: #### U MICRO, ERUR #### [facility] [address] [place] [address] Dr. Mj Mendoza Plan of Treatment Date Care Activity Detail Author XR Chest 2 Views [facility] Immunizations Immunization Date Immunization Notes Care Provider Fa jason 02-26-2024 influenza, high dose seasonal, preservative-free [facility] 04-13-2023 influenza, high dose seasonal, preservative-free Jacob Hook Other [employer] [facility] [employer] Other 04-13-2023 influenza virus vaccine, unspecified formulation [facility] 06-23-2022 zoster vaccine recombinant Jacob Hook Other [facility] 03-21-2022 COVID-19 Moderna (BIvalent) Jacob Hook Other [facility] 03-06-2022 influenza virus vaccine, split virus (incl. purified surface antigen) Jacob Hook Other [employer] [facility] [employer] Other 03-06-2022 influenza virus vaccine, unspecified formulation [facility] 02-24-2022 influenza, high dose seasonal, preservative-free Jacob Hook Other [employer] [facility] [employer] Other 02-24-2022 influenza virus vaccine, unspecified formulation [facility] 09-26-2021 COVID-19 Vaccine Moderna - Documentation Purposes Only Jacob Hook Other [facility] 04-19-2021 COVID-19 Vaccine Moderna - Documentation Purposes Only Jacob Hook Other [facility] 03-04-2021 influenza virus vaccine, split virus (incl. purified surface antigen) Jacob Hook Other [employer] Other 03-04-2021 influenza virus vaccine, unspecified formulation [facility] 09-08-2020 COVID-19 Vaccine Moderna - Documentation Purposes Only Jacob Hook Other [facility] 08-12-2020 COVID-19 Vaccine Moderna - Documentation Purposes Only Jacob Hook Other [facility] 03-23-2020 influenza virus vaccine, split virus (incl. purified surface antigen) Jacob Hook Other [facility] [employer] Other 03-23-2020 influenza virus vaccine, unspecified formulation [facility] 04-10-2019 influenza virus vaccine, split virus (incl. purified surface antigen) Jacob Hook Other [facility] [employer] Other 04-10-2019 influenza virus vaccine, unspecified formulation [facility] 03-27-2018 influenza virus vaccine, split virus (incl. purified surface antigen) Jacob Hook Other [facility] [employer] Other 03-27-2018 influenza virus vaccine, unspecified formulation [facility] 04-19-2017 influenza virus vaccine, split virus (incl. purified surface antigen) Jacob Wild Other [facility] [employer] Other 04-19-2017 influenza virus vaccine, unspecified formulation [facility] 05-02-2016 influenza virus vaccine, split virus (incl. purified surface antigen) Jacob Hook Other [facility] [employer] Other 05-02-2016 influenza virus vaccine, unspecified formulation [facility] 06-08-2015 diphtheria, tetanus toxoids and acellular pertussis vaccine, unspecified formulation Jacob Wild Other [facility] 06-08-2015 pneumococcal conjuga te vaccine, 13 valent Jacob Hook Other [facility] 03-18-2015 influenza virus vaccine, split virus (incl. purified surface antigen) Jacob Hook Other [facility] [employer] Other 03-18-2015 influenza virus vaccine, unspecified formulation [facility] 04-15-2014 influenza virus vaccine, split virus (incl. purified surface antigen) Jacob Hook Other [facility] [employer] Other 04-15-2014 influenza virus vaccine, unspecified formulation [facility] 04-22-2013 pneumococcal conjuga te vaccine, 7 valent Jacob Hook Other [facility] [employer] Other 04-22-2013 pneumococcal Conjuga te, unspecified formulation [facility] 04-11-2013 pneumococcal polysaccharide vaccine, 23 valent Jacob Wild Other [facility] 04-11-2013 tetanus and diphther ia toxoids, adsorbed, preservative free, for adult use (5 Lf of tetanus toxoid and 2 Lf of diphtheria toxoid) Jacob Hook Other [facility] 05-21-2012 zoster vaccine, live Sanju Hook Other [facility] Payers Date Payer Category Payer Medicare [id number] 1958 Unknown [id number] 1945 Unknown [id number] 1945 Unknown [id number] Unknown Regular Insurance [id number] Social History Date Type Detail Facility Sex Assigned At [facility] [employer] Other Start: 09-03-2023 End: 09-03-2023 Tobacco smoking status NHIS Never smoked tobacco (finding) [facility] Start: 1945 Sex Assigned At Male [facility] Start: 05-07-2024 Sex Male (finding) [facility] Clinical Notes 08-27-2022 to 02-26-2024 Note Date & Type Note Facility 02-26-2024 Evaluation note Diagnosis Onset Date Resolution ASHD (arteriosclerotic heart disease) acute February 26, 2024 9:15am GERD (gastroesophageal reflux disease) acute February 26, 2024 9:15am Hypothyroid acute February 9:15am Primary hypertension acute Feb 9:15am Stage 3b chronic kidney disease acute February 26, 2024 9:15am Rotator cuff strain noneactive 2023 9:15am Abdominal pain acute April 192023 9:23am Acute bronchitis due to other specified organisms acute May 07 024 9:23am Acute cholecystitis with chronic cholecystitis acute April 192023 9:23am ASHD (arteriosclerotic heart disease) acute May 07, 024 9:23am Primary hypertension acute 2023 9:23am Stage 3b chronic kidney disease acute May 07 024 9:23am [facility] Work Phone: [phone]) 716-543801-02-2024 Evaluation note* Encounter Date Diagnosis Assessment Notes Treatment Notes Treatment Clinical Notes Jun, Elevated cholesterol (ICD-10 - E78.00) [employer] Other 11-07-2023 Evaluation note* Encounter Date Diagnosis Assessment Notes Treatment Notes Treatment Clinical Notes Apr, Autoimmune thyroiditis (ICD-10 - E06.3) [employer] Other 10-09-2023 Evaluation note* Encounter Date Diagnosis Assessment Notes Treatment Notes Treatment Clinical Notes Mar, Acute non-recurrent maxillary sinusitis (ICD-10 - J01.00) Instructed to use Robitussin or Mucinex for cough, saline or Flonase NS for congestion, Tylenol for pain and fever. Mar, Impacted cerumen of right ear (ICD-10 - H61.21) [employer] q HS Irrigate clear on Sunday if desires. Avoid use of QTip [employer] Other 09-19-2023 Evaluation note* Encounter Date Diagnosis [...] 25mg bid and update office in week 19 Feb, 2023 Elevated cholesterol (ICD-10 - E78.00) Instructed on [...] and SONDRA Feb, Nocturia (ICD-10 - R35.1) [employer] Other 06-28-2023 Evaluation note* Encounter Date Diagnosis Assessment Notes Treatment Notes Treatment Clinical Notes Nov, Primary hypertension (ICD-10 - I10) [employer] Other 03-21-2023 Evaluation note* Encounter Date Diagnosis [...] and exercise. Reviewed age-appropriate preventive testing recommended. [employer] Other 03-12-2023 Evaluation note* Encounter Date Diagnosis [...] High risk medication use (ICD-10 - Z79.899) [employer] Other Evaluation noteNo [employer] Other Evaluation note* Diagnosis Onset Date Resolution Status ASHD (arteriosclerotic heart disease) acute GERD (gastroesophageal reflux disease) acute Hypothyroid acute Primary hypertension acute Screening PSA (prostate specific antigen) acute Stage 3b chronic kidney disease acute Medicare annual wellness visit, subsequent noneactive [facility] Work Phone: Evaluation note* Diagnosis Onset Date Resolution Status ASHD (arteriosclerotic heart disease) acute GERD (gastroesophageal reflux disease) acute Hypothyroid acute Primary hypertension acute Stage 3b chronic kidney disease acute Rotator cuff strain noneacti ve [facility] Work Phone: History general Narrative - [...] COLONOSCOPY 2019 Hospitalization History SEE SURGICAL HX [employer] Other Summary Purpose Family History No Family History Records Found Advance Directives Advance Directive Response Recorded Date/ Time Advance Directives No July 11, 2023 9:49am Advance Directive Response Recorded Date/ Time Advance Directives No July 11, 2023 8:49am Chief Complaint and Reason for Visit Chief [...] 3b chronic kidney disease Rotator cuff strain Chief Complaint Admit Date 6 month February 26, 2024 9:15am Amb Documentation May 05, 2024 1:45pm ER f/u abd pain May 07, 2024 9:23am Reason for Visit Admit Date ASHD (arteriosclerotic heart disease) Se ptember 2023 9:15am GERD (gastroesophageal reflux disease) S eptember 2023 9:15am Hypothyroid February 26, 2024 9:15am Primary hypertension February 25 9:15am Stage 3b chronic kidney disease Septembe r 2023 9:15am Rotator cuff strain February 26, 2024 9:15am Abdominal pain May 07, 2024 9:23am Acute bronchitis due to other specified organisms May 07, 2024 9:23am Acute cholecystitis with chronic cholecy stitis May 07, 2024 9:23am ASHD (arteriosclerotic heart disease) No [id number] 9:23am Primary hypertension May 07, 2024 9:23am Stage 3b chronic kidney disease May 07, 2024 9:23am Additional Source Comments (unrecognized sect ion and content) No Status Records Found INFORMATION SOURCE (unrecogn ized section and content) DATE CREATED AUTHOR 09/05/2022 [facility] REASON FOR VISIT (unrecogniz ed section and content) FLU ShotRIGHT EAR PLUGGED6 [facility] Teams (unrecognized sec tion and content) Team Status: Active Member Role Status Dates Jacob Hook DO Primary Care Provider Active Team Status: Active Member Role Status Dates Jacob Hook , Primary Care Provider Active Start: September 03, [...] 2023 Team Status: Active Member Role Status Apurva Hook DO Primary Care Provide r, Attending Provider Active Start: February 20, 2024 Team Status: Inactive Member Role Status Dates Jacob Hook , Primary Care Provide r, Attending Provider Active Start: February 26, 2024 End: February 26, 2024 Team Status: Active Member Role Status Apurva Hook DO Primary Care Provider Active Start: May 05, 2024 Hasmukh Gonzalez DO Attending Provider Active S tart: May 05, 2024 Team Status: Active Member Role Status Apurva Hook DO Primary Care Provider Active Start: May 05, 2024 Ora Phillips CMA Attending Provider Active Start: May 05, 2024 Team Status: Inactive Member Role Status Apurva Hook DO Primary Care Provide r, Attending Provider Active Start: May 07, 2024 End: May 07, 2024 Goals (unrecognized section and content) Goals [...] BE BASED ON THE PRIMARY CLINICAL RECORDS. [facility] [employer] [facility]. provides no warranty or guarantee of the accuracy or completeness of information in this document.
== END 2024-05-08 10:57 | disposition home or self-care (01) ==
LOC: RAD 10:57
PROVIDERS: PCP Internal Medicine; Visit Provider Internal Medicine
DX: R05.9 Cough, unspecified (principal)
CPT/HCPCS: 71046

== ENCOUNTER 2024-05-26 09:48 | Outpatient (OUT) | payer MEDICARE, SELFPAY ==
[2024-05-26 10:08] LABS: Basophils Absolute Auto 0.1 10^3/uL (0.0-0.1); Basophils Percent Auto 1.5 % (0.2-2.0); Eosinophils Absolute Auto 0.3 10^3/uL (0.0-0.7); Eosinophils Percent Auto 5.6 % (0.9-7.0); Hematocrit 43.5 % (42.0-54.0); Hemoglobin 14.3 g/dL (14.0-18.0); Immature Granulocytes Abs Auto 0.02 10^3/uL (0.00-0.03); Immature Granulocytes Pct Auto 0.4 % (0.0-0.5); Lymphocytes Absolute Auto 1.4 10^3/uL (1.2-3.8); Lymphocytes Percent Auto 25.2 % (20.5-60.0); Mean Corpuscular HGB Conc 32.9 g/dL (29.9-35.2); Mean Corpuscular Hemoglobin 29.2 pg (25.9-34.0); Mean Platelet Volume 9.1 fL (9.5-13.5); Monocytes Absolute Auto 0.6 10^3/uL (0.3-0.8); Monocytes Percent Auto 10.9 % (1.7-12.0); Neutrophils Absolute Auto 3.1 10^3/uL (1.4-6.5); Neutrophils Percent Auto 56.4 % (43.0-75.0); Platelet Count 192 10^3/uL (150-450); Red Blood Count 4.89 10^6/uL (4.70-6.10); Red Cell Distribution Width 13.7 % (11.0-15.0); White Blood Count 5.4 10^3/uL (4.0-11.0)
[2024-05-26 10:37] LABS: Alanine Aminotransferase 34 U/L (16-63); Albumin Globulin Ratio 0.7; Alkaline Phosphatase 132 U/L (46-116); Aspartate Amino Transferase 20 U/L (15-37); BUN Creatinine Ratio 10.9; Bilirubin Total 0.9 mg/dL (0.2-1.0); Calcium 8.8 mg/dL (8.5-10.1); Carbon Dioxide 28.3 mmol/L (21.0-32.0); Chloride 106 mmol/L (98-107); Estimated GFR (African America 41 (>=60 mL/min/1.73m^2); Estimated GFR (Non-African Ame 34 (>=60 mL/min/1.73m^2); Globulin 4.1 g/dL; Glucose 99 mg/dL (74-106); Potassium 4.3 mmol/L (3.5-5.1); Sodium 142 mmol/L (136-145); Total Protein 7.1 g/dL (6.4-8.2)
== END 2024-05-26 09:49 | disposition home or self-care (01) ==
LOC: LAB 09:50
PROVIDERS: PCP Internal Medicine; Visit Provider Internal Medicine
DX: K81.2 Acute cholecystitis with chronic cholecystitis (principal)
CPT/HCPCS: 36415; 80053; 85025

== ENCOUNTER 2024-09-12 09:54 | Outpatient (OUT) | payer MEDICARE, SELFPAY ==
--- OUTSIDE RECORDS SUMMARY | 2024-09-12 10:16 | XMS_ITS | CCD ---
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 Name Role Phone DR JACOB HOOK Primary [...] Coronary arteriosclerosis; Translations: [Atherosclerotic heart disease of [place] coronary artery without angina pectoris] Chronic Disorders [...] pain] Episodic Other aftercare (2 sources) Other halfway (current) drug therapy; Translations: [OTH [facility] CURRENT DRUG THERAPY] Onset: 09-04-2022 Episodic Other [...] Basophils (Bld) [#/Vol] Automated basophil count 0.0-0.1 [facility] Basophils/100 WBC Auto (Bld) on 05-05-2024 Basophils/100 WBC (Bld) Automated basophil % 0.2-2.0 [facility] Eosinophils/100 WBC Auto (Bl d)on 05-05-2024 Eosinophils/100 WBC (Bld) Automated eosinophil % 0.9-7.0 [facility] Erythrocyte distribution wid th Auto (RBC) [Ratio]on 05-05-2024 Erythrocyte distribution width (RBC) [Ratio] Erythrocyte distribution width [Ratio] by Automated count 11.0-15.0 [facility] Estimated glomerular filtrat ion rate (GFR) non- Americanon 05-05-2024 GFR/1.73 sq M.predicted among non-blacks MDRD (S/P/Bld) [Vol rate/Area] Estimated glomerular filtration rate (GFR) non- Low >=60 mL/min/1.73m 2 [facility] Globulin Calc (S) [Mass/Vol] on 05-05-2024 Globulin (S) [Mass/Vol] Serum globulin measurement by calculation (mass/volume) [facility] Hematocrit Auto (Bld) [Volum e fraction]on 05-05-2024 Hematocrit (Bld) [Volume fraction] Hematocrit [Volume Fraction] of Blood by Automated count 42.0-54.0 [facility] Hemoglobin [Mass/volume] in Bloodon 05-05-2024 Hemoglobin (Bld) [Mass/Vol] Hemoglobin [Mass/volume] in Blood 14.0-18.0 [facility] - Chemistry and C hemistry - challengeon 05-05-2024 Bilirubin Ql (U) Negative NEGATIVE [facility] Glucose (U) [Mass/Vol] Negative NEGATIVE [facility] Ketones Ql (U) Negative NEGATIVE [facility] pH (U) 6.0 [pH] 5.0-9.0 [facility] Specific gravity (U) [Rel density] 1.025 1.005-1.025 [facility] Urobilinogen Qn (U) 0.2 {Mic'U}/dL 0.2-1.0 [facility] Albumin [Mass/Vol] 3.3 g/dL Low 3.4-5.0 [facility] ALP [Catalytic activity/Vol] 125 U/L High 46-116 [facility] ALT [Catalytic activity/Vol] 32 U/L 16-63 [facility] Amylase [Catalytic activity/Vol] 152 U/L High 25-115 [facility] AST [Catalytic activity/Vol] 22 U/L 15-37 [facility] Bilirubin [Mass/Vol] 0.6 mg/dL 0.2-1.0 [facility] Bilirubin.direct [Mass/Vol] 0.1 mg/dL 0.0-0.2 [facility] Calcium [Mass/Vol] 8.9 mg/dL 8.5-10.1 [facility] Chloride [Moles/Vol] 106 mmol/L 98-107 [facility] CO2 [Moles/Vol] 22.2 mmol/L 21.0-32.0 [facility] Creatinine [Mass/Vol] 2.27 mg/dL High 0.70-1.30 [facility] GFR/1.73 sq M.predicted MDRD (S/P/Bld) [Vol rate/Area] 34 mL/min/{1.73_m2} Low >=60 mL/min/1.73m 2 [facility] Glucose [Mass/Vol] 146 mg/dL High 74-106 [facility] Lipase [Catalytic activity/Vol] 55.0 U/L 16.0-77.0 [facility] Potassium [Moles/Vol] 4.0 mmol/L 3.5-5.1 [facility] Protein [Mass/Vol] 7.5 g/dL 6.4-8.2 [facility] Sodium [Moles/Vol] 141 mmol/L 136-145 [facility] Urea nitrogen [Mass/Vol] 24.0 mg/dL High 7.0-18.0 [facility] Urea nitrogen/Creatinine [Mass ratio] 10.6 mg/mg [facility] - Hematology and Cell countson 05-05-2024 Immature granulocytes/100 WBC (Bld) 0.1 % 0.0-0.5 [facility] - Specimen inform ationon 05-05-2024 Appearance (U) CLEAR CLEAR [facility] Color (U) LT. YELLOW YELLOW [facility] - Urinalysison Leukocyte esterase Test strip Ql (U) Negative NEGATIVE [facility] Mucus Ql (Urine sed) TRACE Abnormal NONE SEEN [facility] Nitrite Ql (U) Negative NEGATIVE [facility] Protein Ql (U) Negative NEG/TRACE [facility] Leukocytes [#/volume] correc zach for nucleated erythrocytes in Blood by Automated counon 05-05-2024 WBC corrected for nucl RBC Auto (Bld) [#/Vol] Leukocytes [#/volume] corrected for nucleated erythrocytes in Blood by Automated coun 4.0-11.0 [facility] Lymphocytes Auto (Bld) [#/Vo l]on 05-05-2024 Lymphocytes (Bld) [#/Vol] Lymphocytes [#/volume] in Blood by Automated count 1.2-3.8 [facility] Lymphocytes/100 WBC Auto (Bl d)on 05-05-2024 Lymphocytes/100 WBC (Bld) Lymphocytes/100 leukocytes in Blood by Automated count Low 20.5-60.0 [facility] MCH Auto (RBC) [Entitic mass ]on 05-05-2024 MCH (RBC) [Entitic mass] MCH [Entitic mass] by Automated count 25.9-34.0 [facility] MCHC Auto (RBC) [Mass/Vol]on 05-05-2024 MCHC (RBC) [Mass/Vol] MCHC [Mass/volume] by Automated count 29.9-35.2 [facility] MCV Auto (RBC) [Entitic vol] on 05-05-2024 MCV (RBC) [Entitic vol] MCV [Entitic volume] by Automated count 80.0-94.0 [facility] Monocytes Auto (Bld) [#/Vol] on 05-05-2024 Monocytes (Bld) [#/Vol] Automated blood monocyte count 0.3-0.8 [facility] Monocytes/100 WBC Auto (Bld) on 05-05-2024 Monocytes/100 WBC (Bld) Automated monocyte % 1.7-12.0 [facility] Neutrophils Auto (Bld) [#/Vo l]on 05-05-2024 Neutrophils (Bld) [#/Vol] Neutrophils [#/volume] in Blood by Automated count 1.4-6.5 [facility] Neutrophils/100 WBC Auto (Bl d)on 05-05-2024 Neutrophils/100 WBC (Bld) Automated neutrophil % 43.0-75.0 [facility] No Panel Informationon 05-05 Urine Bacteria TRACE #/HPF Abnormal NONE SEEN [facility] Urine Occult Blood MODERATE Abnormal NEGATIVE [facility] Urine Other Casts NONE SEEN #/LPF NONE SEEN [facility] Urine Other Crystals None Seen #/HPF None Seen [facility] Urine RBC 10-20 #/HPF Abnormal 0-2 [facility] Urine Squamous Epithelial Cells FEW #/LPF Abnormal NONE/RARE [facility] Urine WBC NONE SEEN #/HPF NONE SEEN [facility] Eosinophils # (Auto) 0.2 10 3/uL 0.0-0.7 [facility] Immature Granulocyte # (Auto) 0.01 10 3/uL 0.00-0.03 [facility] Platelet mean volume Auto (B ld) [Entitic vol]on 05-05-2024 Platelet mean volume (Bld) [Entitic vol] Platelet mean volume [Entitic volume] in Blood by Automated count 9.5-13.5 [facility] Platelets Auto (Bld) [#/Vol] on 05-05-2024 Platelets (Bld) [#/Vol] Platelets [#/volume] in Blood by Automated count 150-450 [facility] RBC Auto (Bld) [#/Vol]on RBC (Bld) [#/Vol] Erythrocytes [#/volu me] in Blood by Automated count 4.70-6.10 [facility] Serum or plasma albumin/glob ulin mass ratioon 05-05-2024 Albumin/Globulin [Mass ratio] Serum or plasma albumin/globulin mass ratio [facility] Serum or plasma anion gap de terminationon 05-05-2024 Anion gap [Moles/Vol] Serum or plasma anion gap determination [facility] Estimated glomerular filtrat ion rate (GFR) non- Americanon 02-20-2024 GFR/1.73 sq M.predicted among non-blacks MDRD (S/P/Bld) [Vol rate/Area] 41 mL/min/{1.73_m2} Low >=60 [facility] GFR/1.73 sq M.predicted among non-blacks MDRD (S/P/Bld) [Vol rate/Area] Estimated glomerular filtration rate (GFR) non- Low >=60 [facility] - Chemistry and C hemistry - challengeon 02-20-2024 Calcium [Mass/Vol] 9.2 mg/dL 8.5-10.1 [facility] Chloride [Moles/Vol] 105 mmol/L 98-107 [facility] CO2 [Moles/Vol] 24.1 mmol/L 21.0-32.0 [facility] Creatinine [Mass/Vol] 1.65 mg/dL High 0.70-1.30 [facility] GFR/1.73 sq M.predicted MDRD (S/P/Bld) [Vol rate/Area] 49 mL/min/{1.73_m2} Low >=60 [facility] Glucose [Mass/Vol] 112 mg/dL High 74-106 [facility] Potassium [Moles/Vol] 4.0 mmol/L 3.5-5.1 [facility] Sodium [Moles/Vol] 138 mmol/L 136-145 [facility] Urea nitrogen [Mass/Vol] 20.0 mg/dL High 7.0-18.0 [facility] Urea nitrogen/Creatinine [Mass ratio] 12.1 mg/mg [facility] Serum or plasma anion gap de terminationon 02-20-2024 Anion gap [Moles/Vol] 12.9 mmol/L [facility] Anion gap [Moles/Vol] Serum or plasma anion gap determination [facility] Basophils Auto (Bld) [#/Vol] on 09-04-2023 Basophils (Bld) [#/Vol] 0.1 10 3/uL 0.0-0.1 [facility] Basophils/100 WBC Auto (Bld) on 09-04-2023 Basophils/100 WBC (Bld) 1.1 % 0.2-2.0 [facility] Cholesterol in LDL Calc [Mas s/Vol]on 09-04-2023 Cholesterol in LDL [Mass/Vol] 50.0 mg/dL [facility] Comment on above: <100 mg/dl [id number] 0-129 mg/dl NEAR OR ABOVE [id number] mg/dl BORDERLINE [id number] mg/dl HIGH>190 mg/dl VERY HIGH Cholesterol in VLDL Calc [Ma ss/Vol]on 09-04-2023 Cholesterol in VLDL [Mass/Vol] 33.8 mg/dL [facility] Eosinophils/100 WBC Auto (Bl d)on 09-04-2023 Eosinophils/100 WBC (Bld) 2.7 % 0.9-7.0 [facility] Erythrocyte distribution wid th Auto (RBC) [Ratio]on 09-04-2023 Erythrocyte distribution width (RBC) [Ratio] 13.8 % 11.0-15.0 [facility] Estimated glomerular filtrat ion rate (GFR) non- Americanon 09-04-2023 GFR/1.73 sq M.predicted among non-blacks MDRD (S/P/Bld) [Vol rate/Area] 34 mL/min/{1.73_m2} >=60 [facility] Globulin Calc (S) [Mass/Vol] on 09-04-2023 Globulin (S) [Mass/Vol] 3.8 g/dL [facility] Hematocrit Auto (Bld) [Volum e fraction]on 09-04-2023 Hematocrit (Bld) [Volume fraction] 46.4 % 42.0-54.0 [facility] Hemoglobin [Mass/volume] in Bloodon 09-04-2023 Hemoglobin (Bld) [Mass/Vol] 15.2 g/dL 14.0-18.0 [facility] - Chemistry and C hemistry - challengeon 09-04-2023 Albumin [Mass/Vol] 3.5 g/dL 3.4-5.0 [facility] ALP [Catalytic activity/Vol] 120 U/L 46-116 [facility] ALT [Catalytic activity/Vol] 36 U/L 16-63 [facility] AST [Catalytic activity/Vol] 21 U/L 15-37 [facility] Bilirubin [Mass/Vol] 1.2 mg/dL 0.2-1.0 [facility] Calcium [Mass/Vol] 9.3 mg/dL 8.5-10.1 [facility] Chloride [Moles/Vol] 106 mmol/L 98-107 [facility] Cholesterol [Mass/Vol] 116 mg/dL <=200 [facility] Cholesterol in HDL [Mass/Vol] 33 mg/dL 40-60 [facility] Comment on above: > or =60 mg/dl - LOW CARDIOVASCULAR RISK<40 mg/dl - HIGH CARDIOVASCULAR RISK CO2 [Moles/Vol] 23.6 mmol/L 21.0-32.0 [facility] Creatinine [Mass/Vol] 1.91 mg/dL 0.70-1.30 [facility] GFR/1.73 sq M.predicted MDRD (S/P/Bld) [Vol rate/Area] 42 mL/min/{1.73_m2} >=60 [facility] Glucose [Mass/Vol] 115 mg/dL 74-106 [facility] Potassium [Moles/Vol] 4.2 mmol/L 3.5-5.1 [facility] Protein [Mass/Vol] 7.3 g/dL 6.4-8.2 [facility] Sodium [Moles/Vol] 142 mmol/L 136-145 [facility] Triglyceride [Mass/Vol] 169 mg/dL <=150 [facility] TSH Qn 0.864 m[IU]/L 0.358-3.740 [facility] Urea nitrogen [Mass/Vol] 22.0 mg/dL 7.0-18.0 [facility] Urea nitrogen/Creatinine [Mass ratio] 11.5 mg/mg [facility] - Hematology and Cell countson 09-04-2023 Immature granulocytes/100 WBC (Bld) 0.1 % 0.0-0.5 [facility] Leukocytes [#/volume] correc zach for nucleated erythrocytes in Blood by Automated counon 09-04-2023 WBC corrected for nucl RBC Auto (Bld) [#/Vol] 7.0 10 3/uL 4.0-11.0 [facility] Lymphocytes Auto (Bld) [#/Vo l]on 09-04-2023 Lymphocytes (Bld) [#/Vol] 2.0 10 3/uL 1.2-3.8 [facility] Lymphocytes/100 WBC Auto (Bl d)on 09-04-2023 Lymphocytes/100 WBC (Bld) 28.1 % 20.5-60.0 [facility] MCH Auto (RBC) [Entitic mass ]on 09-04-2023 MCH (RBC) [Entitic mass] 29.2 pg 25.9-34.0 [facility] MCHC Auto (RBC) [Mass/Vol]on 09-04-2023 MCHC (RBC) [Mass/Vol] 32.8 g/dL 29.9-35.2 [facility] MCV Auto (RBC) [Entitic vol] on 09-04-2023 MCV (RBC) [Entitic vol] 89.1 fL 80.0-94.0 [facility] Monocytes Auto (Bld) [#/Vol] on 09-04-2023 Monocytes (Bld) [#/Vol] 0.7 10 3/uL 0.3-0.8 [facility] Monocytes/100 WBC Auto (Bld) on 09-04-2023 Monocytes/100 WBC (Bld) 10.0 % 1.7-12.0 [facility] Neutrophils Auto (Bld) [#/Vo l]on 09-04-2023 Neutrophils (Bld) [#/Vol] 4.0 10 3/uL 1.4-6.5 [facility] Neutrophils/100 WBC Auto (Bl d)on 09-04-2023 Neutrophils/100 WBC (Bld) 58.0 % 43.0-75.0 [facility] No Panel Informationon 09-03 Eosinophils # (Auto) 0.2 10 3/uL 0.0-0.7 [facility] Immature Granulocyte # (Auto) 0.01 10 3/uL 0.00-0.03 [facility] Prostate Specific Antigen Screen 1.90 ng/mL <=4.00 [facility] Platelet mean volume Auto (B ld) [Entitic vol]on 09-04-2023 Platelet mean volume (Bld) [Entitic vol] 9.6 fL 9.5-13.5 [facility] Platelets Auto (Bld) [#/Vol] on 09-04-2023 Platelets (Bld) [#/Vol] 200 10 3/uL 150-450 [facility] RBC Auto (Bld) [#/Vol]on RBC (Bld) [#/Vol] 5.21 10 6/uL 4.70-6.10 [facility] Serum or plasma albumin/glob ulin mass ratioon 09-04-2023 Albumin/Globulin [Mass ratio] 0.9 {ratio} [facility] Serum or plasma anion gap de terminationon 09-04-2023 Anion gap [Moles/Vol] 16.6 mmol/L [facility] Serum or plasma total choles terol/high density lipoprotein (HDL) cholesterol mass rolf 09-04-2023 Cholesterol.total/C holesterol in HDL [Mass ratio] 3.5 {ratio} [facility] Comment on above: 3.3 - 4.4 LOW RISK4. 4 - 7.1 AVERAGE RISK7.1 - 11.0 MODERATE RISK>11.0 HIGH RISK CBC AUTO DIFFon 08-29-2022 BASO # 0.1 103/ul Normal 0.0-0.1 [facility] Comment on above: Performed By: #### C BC #### [facility] [address] [place] [address] Dr. Mj Mendoza Basophils/100 WBC (Bld) 1.6 % Normal 0.2-2.0 [facility] Comment on above: Performed By: #### C BC #### [facility] [address] [place] [address] Dr. Mj Mendoza EO # 0.3 103/ul Normal 0.0-0.7 [facility] Comment on above: Performed By: #### C BC #### [facility] [address] [place] [address] Dr. Mj Mendoza Eosinophils/100 WBC (Bld) 3.9 % Normal 0.9-7.0 [facility] Comment on above: Performed By: #### C BC #### [facility] [address] [place] [address] Dr. Mj Mendoza Erythrocyte distribution width (RBC) [Ratio] 13.9 % Normal 11.0-15.0 [facility] Comment on above: Performed By: #### C BC #### [facility] [address] [place] [address] Dr. Mj Mendoza Hematocrit (Bld) [Volume fraction] 49.6 % Normal 42.0-54.0 [facility] Comment on above: Performed By: #### C BC #### [facility] [address] [place] [address] Dr. Mj Mendoza Hemoglobin (Bld) [Mass/Vol] 16.7 g/dL Normal 14.0-18.0 [facility] Comment on above: Performed By: #### C BC #### [facility] [address] [place] [address] Dr. Mj Mendoza IG # 0.03 10e3/ul Normal 0.00-0.03 [facility] Comment on above: Performed By: #### C BC #### [facility] [address] [place] [address] Dr. Mj Mendoza IG % 0.5 % Normal 0.0-0.5 [facility] Comment on above: Performed By: #### C BC #### [facility] [address] [place] [address] Dr. Mj Mendoza LYMPH # 2.2 103/ul Normal 1.2-3.8 [facility] Comment on above: Performed By: #### C BC #### [facility] [address] [place] [address] Dr. Mj Mendoza Lymphocytes/100 WBC (Bld) 33.9 % Normal 20.5-60.0 [facility] Comment on above: Performed By: #### C BC #### [facility] [address] [place] [address] Dr. Mj Mendoza MANUAL DIFF REQ NO Normal [facility] Comment on above: Performed By: #### C BC #### [facility] [address] [place] [address] Dr. Mj Mendoza MCH (RBC) [Entitic mass] 29.2 pg Normal 25.9-34.0 [facility] Comment on above: Performed By: #### C BC #### [facility] [address] [place] [address] Dr. Mj Mendoza MCHC (RBC) [Mass/Vol] 33.7 g/dL Normal 29.9-35.2 [facility] Comment on above: Performed By: #### C BC #### [facility] [address] [place] [address] Dr. Mj Mendoza MCV (RBC) [Entitic vol] 86.9 fL Normal 80.0-94.0 [facility] Comment on above: Performed By: #### C BC #### [facility] [address] [place] [address] Dr. Mj Mendoza MONO # 0.7 103/ul Normal 0.3-0.8 [facility] Comment on above: Performed By: #### C BC #### [facility] [address] [id number] [address] Mj Mendoza Monocytes/100 WBC (Bld) 10.7 % Normal 1.7-12.0 [facility] Comment on above: Performed By: #### C BC #### [facility] [address] [address] [address] Mj Mendoza NEUT # 3.1 103/ul Normal 1.4-6.5 [facility] Comment on above: Performed By: #### C BC #### [facility] [address] [address] [address] Mj Mendoza Neutrophils/100 WBC (Bld) 49.4 % Normal 43.0-75.0 [facility] Comment on above: Performed By: #### C BC #### [facility] [address] [place] [address] Dr. Mj Mendoza Platelet mean volume (Bld) [Entitic vol] 8.8 fL Critically low 9.5-13.5 [facility] Comment on above: Performed By: #### C BC #### [facility] [address] [place] [address] Dr. Mj Mendoza PLT 193 103/ul Normal 150-450 [facility] Comment on above: Performed By: #### C BC #### [facility] [address] [place] [address] Dr. Mj Mendoza RBC 5.71 106/ul Normal 4.70-6.10 [facility] Comment on above: Performed By: #### C BC #### [facility] [address] [place] [address] Dr. Mj Mendoza WBC 6.3 103/ul Normal 4.0-11.0 [facility] Comment on above: Performed By: #### C BC #### [facility] [address] [place], [place] [id number] Dr. Mj Mendoza LIPID PROFILEon 08-29-2022 CHOL-HDL RATIO NORM SEE BELOW Normal [facility] Comment on above: Result Comment: 3.3 - 4.4 LOW RISK 4.4 - 7.1 AVERAGE RISK 7.1 - 11.0 MODERATE RISK >11.0 HIGH RISK Performed By: #### L IPID, ALT, TSH, BMP #### [facility] [address] [address] [address] Mj Mendoza Cholesterol [Mass/Vol] 144 mg/dL Normal <=200 [facility] Comment on above: Performed By: #### L IPID, ALT, TSH, BMP #### [facility] [address] [address] [address] Mj Mendoza Cholesterol in HDL [Mass/Vol] 36 mg/dL Critically low 40-60 [facility] Comment on above: Performed By: #### L IPID, ALT, TSH, BMP #### [facility] [address] [address] [address] Mj Mendoza Cholesterol in LDL [Mass/Vol] 71.8 mg/dL Normal [facility] Comment on above: Performed By: #### L IPID, ALT, TSH, BMP #### [facility] [address] [address] [address] Mj Mendoza Cholesterol.total/C holesterol in HDL [Mass ratio] 4.0 {ratio} Normal [facility] Comment on above: Performed By: #### L IPID, ALT, TSH, BMP #### [facility] [address] [address] [address] Mj Mendoza HDL NORMAL > or = 60 mg/dl - LO W CARDIOVASCULAR RISK <40 mg/dl - HIGH CARDIOVASCULAR RISK Normal [facility] Comment on above: Performed By: #### L IPID, ALT, TSH, BMP #### [facility] [address] [address] [address] Mj Mendoza LDL CALC NORMAL SEE BELOW Normal [facility] Comment on above: Result Comment: <100 mg/dl OPTIMAL 100 - 129 mg/dl NEAR OR ABOVE OPTIMAL 130 - 159 mg/dl BORDERLINE HIGH 160 - 189 mg/dl HIGH >190 mg/dl VERY HIGH Performed By: #### L IPID, ALT, TSH, BMP #### [facility] [address] [address] [address] Mj Mendoza Triglyceride [Mass/Vol] 181 mg/dL Critically high <=150 [facility] Comment on above: Performed By: #### L IPID, ALT, TSH, BMP #### [facility] [address] [address] [address] Mj Mendoza VLDL CALC 36.2 mg/dL Normal [facility] Comment on above: Performed By: #### L IPID, ALT, TSH, BMP #### [facility] [address] [place] [address] Dr. Mj Mendoza PROF CHEM 8 (BAS METB)on Anion gap [Moles/Vol] 10.0 mmol/L Normal [facility] Comment on above: Performed By: #### L IPID, ALT, TSH, BMP #### [facility] [address] [place] [address] Dr. Mj Mendoza Calcium [Mass/Vol] 9.2 mg/dL Normal 8.5-10.1 [facility] Comment on above: Performed By: #### L IPID, ALT, TSH, BMP #### [facility] [address] [place] [address] Dr. Mj Mendoza Chloride [Moles/Vol] 105 mmol/L Normal 98-107 [facility] Comment on above: Performed By: #### L IPID, ALT, TSH, BMP #### [facility] [address] [place] [address] Dr. Mj Mendoza CO2 [Moles/Vol] 27.2 mmol/L Normal 21.0-32.0 [facility] Comment on above: Performed By: #### L IPID, ALT, TSH, BMP #### [facility] [address] [place] [address] Dr. Mj Mendoza Creatinine [Mass/Vol] 1.67 mg/dL Critically high 0.70-1.30 [facility] Comment on above: Performed By: #### L IPID, ALT, TSH, BMP #### [facility] [address] [place] [address] Dr. Mj Mendoza EGFR-AF ISRAELI 49 mL/min/1.73m2 Critically low >=60 [facility] Comment on above: Performed By: #### L IPID, ALT, TSH, BMP #### [facility] [address] [place] [address] Dr. Mj Mendoza EGFR-NON AF ISRAELI 40 mL/min/1.73m2 Critically low >=60 [facility] Comment on above: Performed By: #### L IPID, ALT, TSH, BMP #### [facility] [address] [place] [address] Dr. Mj Mendoza Glucose [Mass/Vol] 115 mg/dL Critically high 74-106 [facility] Comment on above: Performed By: #### L IPID, ALT, TSH, BMP #### [facility] [address] [place] [address] Dr. Mj Mendoza Potassium [Moles/Vol] 4.2 mmol/L Normal 3.5-5.1 [facility] Comment on above: Performed By: #### L IPID, ALT, TSH, BMP #### [facility] [address] [place] [address] Dr. Mj Mendoza Sodium [Moles/Vol] 138 mmol/L Normal 136-145 [facility] Comment on above: Performed By: #### L IPID, ALT, TSH, BMP #### [facility] [address] [place] [address] Dr. jM Mendoza Urea nitrogen [Mass/Vol] 23.0 mg/dL Critically high 7.0-18.0 [facility] Comment on above: Performed By: #### L IPID, ALT, TSH, BMP #### [facility] [address] [place] [address] Dr. Mj Mendoza Urea nitrogen/Creatinine [Mass ratio] 13.8 mg/mg Normal [facility] Comment on above: Performed By: #### L IPID, ALT, TSH, BMP #### [facility] [address] [place] [address] Dr. Mj Mendoza [facility] 08-29-2022 ALT [Catalytic activity/Vol] 38 U/L Normal 16-63 [facility] Comment on above: Performed By: #### L IPID, ALT, TSH, BMP #### [facility] [address] [place], [place] [address] Dr. Mj Mendoza TSHon 08-29-2022 TSH 1.932 uIU/mL Normal 0.358-3.740 [facility] Comment on above: Performed By: #### L IPID, ALT, TSH, BMP #### [facility] [address] [place], [place] [address] ABD/PELVIS WO CONon [...] TAMIKA SANTIZO Date: 2022-05-06 23:26 Normal [facility] CBC AUTO DIFFon 05-06-2022 BASO # 0.1 103/ul Normal 0.0-0.1 [facility] Comment on above: Performed By: #### C BC #### [facility] [address] [address] [address] Mj Mendoza Basophils/100 WBC (Bld) 0.9 % Normal 0.2-2.0 [facility] Comment on above: Performed By: #### C BC #### [facility] [address] [address] [address] Mj Mendoza EO # 0.1 103/ul Normal 0.0-0.7 [facility] Comment on above: Performed By: #### C BC #### [facility] [address] [address] [address] Mj Mendoza Eosinophils/100 WBC (Bld) 1.8 % Normal 0.9-7.0 [facility] Comment on above: Performed By: #### C BC #### [facility] [address] [address] [address] Mj Mendoza Erythrocyte distribution width (RBC) [Ratio] 14.0 % Normal 11.0-15.0 [facility] Comment on above: Performed By: #### C BC #### [facility] [address] [address] [address] Mj Mendoza Hematocrit (Bld) [Volume fraction] 47.2 % Normal 42.0-54.0 [facility] Comment on above: Performed By: #### C BC #### [facility] [address] [place] [address] Dr. Mj Mendoza Hemoglobin (Bld) [Mass/Vol] 16.5 g/dL Normal 14.0-18.0 [facility] Comment on above: Performed By: #### C BC #### [facility] [address] [place] [address] Dr. Mj Mendoza IG # 0.01 10e3/ul Normal 0.00-0.03 [facility] Comment on above: Performed By: #### C BC #### [facility] [address] [place] [address] Dr. Mj Mendoza IG % 0.1 % Normal 0.0-0.5 [facility] Comment on above: Performed By: #### C BC #### [facility] [address] [place] [address] Dr. Mj Mendoza LYMPH # 1.8 103/ul Normal 1.2-3.8 [facility] Comment on above: Performed By: #### C BC #### [facility] [address] [place] [address] Dr. Mj Mendoza Lymphocytes/100 WBC (Bld) 23.0 % Normal 20.5-60.0 [facility] Comment on above: Performed By: #### C BC #### [facility] [address] [place] [address] Dr. Mj Mendoza MANUAL DIFF REQ NO Normal [facility] Comment on above: Performed By: #### C BC #### [facility] [address] [place] [address] Dr. Mj Mendoza MCH (RBC) [Entitic mass] 29.8 pg Normal 25.9-34.0 [facility] Comment on above: Performed By: #### C BC #### [facility] [address] [address] [address] Mj Mendoza MCHC (RBC) [Mass/Vol] 35.0 g/dL Normal 29.9-35.2 [facility] Comment on above: Performed By: #### C BC #### [facility] [address] [address] [address] Mj Mendoza MCV (RBC) [Entitic vol] 85.2 fL Normal 80.0-94.0 [facility] Comment on above: Performed By: #### C BC #### [facility] [address] [address] [address] Mj Mendoza MONO # 0.7 103/ul Normal 0.3-0.8 [facility] Comment on above: Performed By: #### C BC #### [facility] [address] [place] [address] Dr. Mj Mendzoa Monocytes/100 WBC (Bld) 8.5 % Normal 1.7-12.0 [facility] Comment on above: Performed By: #### C BC #### [facility] [address] [place] [address] Dr. Mj Mendoza NEUT # 5.1 103/ul Normal 1.4-6.5 [facility] Comment on above: Performed By: #### C BC #### [facility] [address] [place] [address] Dr. Mj Mendoza Neutrophils/100 WBC (Bld) 65.7 % Normal 43.0-75.0 [facility] Comment on above: Performed By: #### C BC #### [facility] [address] [address] [address] Mj Mendoza Platelet mean volume (Bld) [Entitic vol] 9.1 fL Critically low 9.5-13.5 [facility] Comment on above: Performed By: #### C BC #### [facility] [address] [address] [address] Mj Mendoza PLT 195 103/ul Normal 150-450 [facility] Comment on above: Performed By: #### C BC #### [facility] [address] [address] [address] Mj Mendoza RBC 5.54 106/ul Normal 4.70-6.10 [facility] Comment on above: Performed By: #### C BC #### [facility] [address] [place] [address] Dr. Mj Mendoza WBC 7.8 103/ul Normal 4.0-11.0 [facility] Comment on above: Performed By: #### C BC #### [facility] [address] [place] [address] Dr. Mj Mendoza ER URINE PROFILEon 2 Bilirubin Ql (U) Negative Normal NEGATIVE [facility] Comment on above: Performed By: #### U MICRO, ERUR #### [facility] [address] [place] [address] Dr. Mj Mendoza Clarity (U) CLEAR Normal CLEAR [facility] Comment on above: Performed By: #### U MICRO, ERUR #### [facility] [address] [place] [address] Dr. Mj Mendoza Color (U) YELLOW Normal YELLOW [facility] Comment on above: Performed By: #### U MICRO, ERUR #### [facility] [address] [place] [address] Dr. Mj Mendoza ERUAHD A micrscopic examina tion will be performed if indicated. Normal [facility] Comment on above: Performed By: #### U MICRO, ERUR #### [facility] [address] [place] [address] Dr. Mj Mendoza Glucose Ql (U) Negative Normal NEGATIVE [facility] Comment on above: Performed By: #### U MICRO, ERUR #### [facility] [address] [place] [address] Dr. Mj Mendoza Hemoglobin Ql (U) MODERATE Abnormal NEGATIVE [facility] Comment on above: Performed By: #### U MICRO, ERUR #### [facility] [address] [place] [address] Dr. Mj Mendoza Ketones Ql (U) Negative Normal NEGATIVE [facility] Comment on above: Performed By: #### U MICRO, ERUR #### [facility] [address] [place] [address] Dr. Mj Mendoza LEUKOCYTES Negative Normal NEGATIVE [facility] Comment on above: Performed By: #### U MICRO, ERUR #### [facility] [address] [place] [address] Dr. Mj Mendoza Nitrite Ql (U) Negative Normal NEGATIVE [facility] Comment on above: Performed By: #### U MICRO, ERUR #### [facility] [address] [place] [address] Dr. Mj Mendoza pH (U) 5.0 [pH] Normal 5-9 [facility] Comment on above: Performed By: #### U MICRO, ERUR #### [facility] [address] [place] [address] Dr. Mj Mendoza SPEC GRAVITY >=1.030 Abnormal 1.005-<=1.025 [facility] Comment on above: Performed By: #### U MICRO, ERUR #### [facility] [address] [place] [address] Dr. Mj Mendoza UA PROTEIN TRACE Normal NEGATIVE/ TRACE [facility] Comment on above: Performed By: #### U MICRO, ERUR #### [facility] [address] [place] [address] Dr. Mj Mendoza UR MICRO IND INDICATED Normal [facility] Comment on above: Performed By: #### U MICRO, ERUR #### [facility] [address] [place] [address] Dr. Mj Mendoza Urobilinogen Qn (U) 0.2 {Mic'U}/dL Normal 0.2 - 1. 0 [facility] Comment on above: Performed By: #### U MICRO, ERUR #### [facility] [address] [place] [address] Dr. Mj Mendoza PROF 14(COMP METB)on 022 Albumin [Mass/Vol] 3.7 g/dL Normal 3.4-5.0 [facility] Comment on above: Performed By: #### C MP #### [facility] [address] [place] [address] Dr. Mj Mendoza Albumin/Globulin [Mass ratio] 1.0 {ratio} Normal [facility] Comment on above: Performed By: #### C MP #### [facility] [address] [place] [address] Dr. Mj Mendoza ALP [Catalytic activity/Vol] 135 U/L Critically high 46-116 [facility] Comment on above: Performed By: #### C MP #### [facility] [address] [place] [address] Dr. Mj Mendoza ALT [Catalytic activity/Vol] 47 U/L Normal 16-63 [facility] Comment on above: Performed By: #### C MP #### [facility] [address] [place] [address] Dr. Mj Mendoza Anion gap [Moles/Vol] 12.7 mmol/L Normal [facility] Comment on above: Performed By: #### C MP #### [facility] [address] [place] [address] Dr. Mj Mendoza AST [Catalytic activity/Vol] 22 U/L Normal 15-37 [facility] Comment on above: Performed By: #### C MP #### [facility] [address] [place] [address] Dr. Mj Mendoza Bilirubin [Mass/Vol] 0.7 mg/dL Normal 0.2-1.0 [facility] Comment on above: Performed By: #### C MP #### [facility] [address] [place] [address] Dr. Mj Mendoza Calcium [Mass/Vol] 9.0 mg/dL Normal 8.5-10.1 [facility] Comment on above: Performed By: #### C MP #### [facility] [address] [place] [address] Dr. Mj Mendoza Chloride [Moles/Vol] 103 mmol/L Normal 98-107 [facility] Comment on above: Performed By: #### C MP #### [facility] [address] [place] [address] Dr. Mj Mendoza CO2 [Moles/Vol] 23.1 mmol/L Normal 21.0-32.0 [facility] Comment on above: Performed By: #### C MP #### [facility] [address] [address] [address] Mj Mendoza Creatinine [Mass/Vol] 1.79 mg/dL Critically high 0.70-1.30 [facility] Comment on above: Performed By: #### C MP #### [facility] [address] [address] [address] Mj Mendoza EGFR-AF ISRAELI 45 mL/min/1.73m2 Critically low >=60 [facility] Comment on above: Performed By: #### C MP #### [facility] [address] [address] [address] Mj Mendoza EGFR-NON AF ISRAELI 37 mL/min/1.73m2 Critically low >=60 [facility] Comment on above: Performed By: #### C MP #### [facility] [address] [address] [address] Mj Mendoza Globulin (S) [Mass/Vol] 3.8 g/dL Normal [facility] Comment on above: Performed By: #### C MP #### [facility] [address] [place] [address] Dr. Mj Mendoza Glucose [Mass/Vol] 162 mg/dL Critically high 74-106 [facility] Comment on above: Performed By: #### C MP #### [facility] [address] [address] [address] Mj Mendoza Potassium [Moles/Vol] 3.8 mmol/L Normal 3.5-5.1 [facility] Comment on above: Performed By: #### C MP #### [facility] [address] [address] [address] Mj Mendoza Protein [Mass/Vol] 7.5 g/dL Normal 6.4-8.2 [facility] Comment on above: Performed By: #### C MP #### [facility] [address] [address] [address] Mj Mendoza Sodium [Moles/Vol] 135 mmol/L Critically low 136-145 Th [facility] Comment on above: Performed By: #### C MP #### [facility] [address] [address] [address] Mj Mendoza Urea nitrogen [Mass/Vol] 23.0 mg/dL Critically high 7.0-18.0 [facility] Comment on above: Performed By: #### C MP #### [facility] [address] [address] [address] Mj Mendoza Urea nitrogen/Creatinine [Mass ratio] 12.8 mg/mg Normal [facility] Comment on above: Performed By: #### C MP #### [facility] [address] [address] [address] Mj Mendoza URINE MICROSCOPIC ONLYon BACTERIA NONE SEEN Normal NONE SEEN [facility] Comment on above: Performed By: #### U MICRO, ERUR #### [facility] [address] [place] [address] Dr. Mj Mendoza Bacteria identified Cx Nom (U) NOT INDICATED Normal [facility] Comment on above: Performed By: #### U MICRO, ERUR #### [facility] [address] [address] [address] Mj Mendoza CAST NONE SEEN Normal NONE SEEN [facility] Comment on above: Performed By: #### U MICRO, ERUR #### [facility] [address] [place] [address] Dr. Mj Mendoza Crystals LM Nom (Urine sed) NONE SEEN Normal NONE SEEN [facility] Comment on above: Performed By: #### U MICRO, ERUR #### [facility] [address] [place] [address] Dr. Mj Mendoza Epithelial cells LM Ql (Urine sed) FEW Abnormal NONE SEEN /RARE [facility] Comment on above: Performed By: #### U MICRO, ERUR #### [facility] [address] [place] [address] Dr. Mj Mendoza MUCOUS TRACE Abnormal NONE SEEN [facility] Comment on above: Performed By: #### U MICRO, ERUR #### [facility] [address] [place] [address] Dr. Mj Mendoza RBC 2-5 Abnormal 0-2 [facility] Comment on above: Performed By: #### U MICRO, ERUR #### [facility] [address] [address] [address] Mj Mendoza WBC NONE SEEN Normal NONE SEEN [facility] Comment on above: Performed By: #### U MICRO, ERUR #### [facility] [address] [address] [address] Mj Mendoza Vital Signs Date Time Vital Sign Value Performing Clinician Facility 05-07-2024 09:33-0500 Body height 182.88 cm [facility] 05-07-2024 09:33-0500 Body mass index (BMI) [Ratio] 27.1 kg/m2 [facility] 05-07-2024 09:33-0500 Body weight 90.71 kg [facility] 05-07-2024 09:33-0500 Diastolic blood pressure 84 mm[Hg] [facility] 05-07-2024 09:33-0500 Heart rate 88 /min [facility] 05-07-2024 09:33-0500 Respiratory rate 12 /min [facility] 05-07-2024 09:33-0500 Systolic blood pressure 134 mm[Hg] [facility] 02-26-2024 09:40-0400 Body height 182.88 cm [facility] 02-26-2024 09:40-0400 Body mass index (BMI) [Ratio] 27.4 kg/m2 [facility] 02-26-2024 09:40-0400 Body weight 91.73 kg [facility] 02-26-2024 09:40-0400 Diastolic blood pressure 82 mm[Hg] [facility] 02-26-2024 09:40-0400 Heart rate 56 /min [facility] 02-26-2024 09:40-0400 Respiratory rate 12 /min [facility] 02-26-2024 09:40-0400 Systolic blood pressure 165 mm[Hg] [facility] 09-10-2023 09:36-0400 Body height 182.88 cm [facility] 09-10-2023 09:36-0400 Body mass index (BMI) [Ratio] 27.3 kg/m2 [facility] 09-10-2023 09:36-0400 Body weight 91.34 kg [facility] 09-10-2023 09:36-0400 Diastolic blood pressure 80 mm[Hg] [facility] 09-10-2023 09:36-0400 Heart rate 57 /min [facility] 09-10-2023 09:36-0400 Respiratory rate 12 /min [facility] 09-10-2023 09:36-0400 Systolic blood pressure 130 mm[Hg] [facility] 03-26-2023 15:00-0400 Body height 182.88 cm Jacob Ball Other [facility] Other 03-26-2023 15:00-0400 Body mass index (BMI) [Ratio] 27.61 kg/m2 Jacob Ball Other [facility] Other 03-26-2023 15:00-0400 Body weight 92.35 kg Jacob Ball Other [facility] Other 03-26-2023 15:00-0400 Diastolic blood pressure 70 mm[Hg] Jacob Ball Other [facility] Other 03-26-2023 15:00-0400 Respiratory rate 12 /min Jacob Ball Other [facility] [facility] Other 03-26-2023 15:00-0400 Systolic blood pressure 133 mm[Hg] Jacob Ball Other [facility] Other 03-06-2023 10:30-0400 Body height 182.88 cm Jacob Ball Other [facility] Other 03-06-2023 10:30-0400 Body mass index (BMI) [Ratio] 27.31 kg/m2 Jacob Ball Other [facility] Other 03-06-2023 10:30-0400 Body weight 91.36 kg Jacob Ball Other [facility] Other 03-06-2023 10:30-0400 Diastolic blood pressure 90 mm[Hg] Jacob Ball Other [facility] Other 03-06-2023 10:30-0400 Respiratory rate 12 /min Jacob Ball Other [facility] Other 03-06-2023 10:30-0400 Systolic blood pressure 145 mm[Hg] Jacob Ball Other [facility] Other 09-05-2022 14:30-0400 Body height 182.88 cm Jacob Ball Other [facility] Other 09-05-2022 14:30-0400 Body mass index (BMI) [Ratio] 28.1 kg/m2 Jacob Ball Other [facility] Other 09-05-2022 14:30-0400 Body weight 93.99 kg Jacob Ball Other [facility] Other 09-05-2022 14:30-0400 Diastolic blood pressure 98 mm[Hg] Jacob Ball Other [facility] Other 09-05-2022 14:30-0400 Respiratory rate 12 /min Jacob Ball Other [facility] Other 09-05-2022 14:30-0400 Systolic blood pressure 164 mm[Hg] Jacob Ball Other [facility] Other Encounters Encounter Date Encounter Type Care Provider Facility Start: 05-07-2024 End: 05-07-2024 ambulatory [facility] Work Phone: Start: 05-07-2024 End: 05-07-2024 Patient encounter procedure [facility] Work Phone: Start: 05-05-2024 Non-patient / Non-visit [facility] Work Phone: Start: 05-05-2024 Non-patient / Non-visit [facility] Work Phone: Start: 02-26-2024 End: 02-26-2024 ambulatory [facility] Work Phone: Start: 02-26-2024 End: 02-26-2024 Patient encounter procedure [facility] Work Phone: Start: 02-20-2024 Non-patient / Non-visit [facility] Work Phone: Start: 09-10-2023 End: 09-10-2023 ambulatory [facility] Work Phone: Start: 09-10-2023 End: 09-10-2023 Patient encounter procedure [facility] Work Phone: Start: 09-04-2023 Non-patient / Non-visit [facility] Work Phone: Start: 09-03-2023 Non-patient / Non-visit [facility] Work Phone: Start: 06-19-2023 End: 06-19-2023 ambulatory Jacob Wild Other [facility] Other Start: 06-19-2023 Telephone encounter Jacob Hook [facility] Start: 04-24-2023 End: 04-24-2023 ambulatory Jacob Hook Other [facility] Other Start: 04-24-2023 Telephone encounter Jacob Hook [facility] Start: 04-13-2023 End: 04-13-2023 ambulatory Jacob Hook Other [facility] Other Start: 04-13-2023 Nursing evaluation o f patient and report Jacob Hook [facility] Start: 03-26-2023 End: 03-26-2023 ambulatory Jacob Hook Other [facility] Other Start: 03-26-2023 Office outpatient vi sit 15 minutes Jacob Hook [facility] Start: 03-06-2023 End: 03-06-2023 ambulatory Jacob Hook Other [facility] Other Start: 03-06-2023 Office outpatient vi sit 25 minutes Jacob Hook [facility] Start: 12-13-2022 End: 12-13-2022 ambulatory Jacob Hook Other [facility] Other Start: 12-13-2022 Telephone encounter Jacob Hook [facility] Start: 09-05-2022 End: 09-05-2022 ambulatory Jacob Wild Other [facility] Other Start: 09-05-2022 Patient encounter procedure Jacob Hook [facility] Start: 08-29-2022 End: 08-30-[address] JACOB HOOK Facility:[facility] Start: 08-27-2022 End: 08-27-2022 ambulatory Jacob Wild Other [facility] Other Start: 08-27-2022 Telephone encounter Jacob Wild [facility] Start: 05-06-2022 End: 05-07-[address] JACOB HOOK Facility:[facility] Procedures Date Procedure Procedure Detail Performing Clinician Start: 08-29-[address] SREEDHAR [facility]LEY [place] Comment on above: Performed By: #### U MICRO, ERUR #### [facility] [address] [place] [address] Dr. Mj Mendoza Plan of Treatment Date Care Activity Detail Author XR Chest 2 Views [facility] Immunizations Immunization Date Immunization Notes Care Provider Fa jason 02-26-2024 influenza, high dose seasonal, preservative-free [facility] 04-13-2023 influenza, high dose seasonal, preservative-free Jacob Hook Other [facility] Other 04-13-2023 influenza virus vaccine, unspecified formulation [facility] 06-23-2022 zoster vaccine recombinant Jacob Hook Other [facility] 03-21-2022 COVID-19 Moderna (BIvalent) Jacob Hook Other [facility] 03-06-2022 influenza virus vaccine, split virus (incl. purified surface antigen) Jacob Hook Other [facility] Other 03-06-2022 influenza virus vaccine, unspecified formulation [facility] 02-24-2022 influenza, high dose seasonal, preservative-free Jacob Hook Other [facility] Other 02-24-2022 influenza virus vaccine, unspecified formulation [facility] 09-26-2021 COVID-19 Vaccine Moderna - Documentation Purposes Only Jacob Hook Other [facility] 04-19-2021 COVID-19 Vaccine Moderna - Documentation Purposes Only Jacob Hook Other [facility] 03-04-2021 influenza virus vaccine, split virus (incl. purified surface antigen) Jacob Hook Other [facility] Other 03-04-2021 influenza virus vaccine, unspecified formulation [facility] 09-08-2020 COVID-19 Vaccine Moderna - Documentation Purposes Only Jacob Hook Other [facility] 08-12-2020 COVID-19 Vaccine Moderna - Documentation Purposes Only Jacob Hook Other [facility] 03-23-2020 influenza virus vaccine, split virus (incl. purified surface antigen) Jacob Hook Other [facility] Other 03-23-2020 influenza virus vaccine, unspecified formulation [facility] 04-10-2019 influenza virus vaccine, split virus (incl. purified surface antigen) Jacob Hook Other [facility] Other 04-10-2019 influenza virus vaccine, unspecified formulation [facility] 03-27-2018 influenza virus vaccine, split virus (incl. purified surface antigen) Jacob Hook Other [facility] Other 03-27-2018 influenza virus vaccine, unspecified formulation [facility] 04-19-2017 influenza virus vaccine, split virus (incl. purified surface antigen) Jacob Wild Other [facility] Other 04-19-2017 influenza virus vaccine, unspecified formulation [facility] 05-02-2016 influenza virus vaccine, split virus (incl. purified surface antigen) Jacob Hook Other [facility] Other 05-02-2016 influenza virus vaccine, unspecified formulation [facility] 06-08-2015 diphtheria, tetanus toxoids and acellular pertussis vaccine, unspecified formulation Jacob Wild Other [facility] 06-08-2015 pneumococcal conjuga te vaccine, 13 valent Jacob Hook Other [facility] 03-18-2015 influenza virus vaccine, split virus (incl. purified surface antigen) Jacob Hook Other [facility] Other 03-18-2015 influenza virus vaccine, unspecified formulation [facility] 04-15-2014 influenza virus vaccine, split virus (incl. purified surface antigen) Jacob Hook Other [facility] Other 04-15-2014 influenza virus vaccine, unspecified formulation [facility] 04-22-2013 pneumococcal conjuga te vaccine, 7 valent Jacob Hook Other [facility] Other 04-22-2013 pneumococcal Conjuga te, unspecified formulation [facility] 04-11-2013 pneumococcal polysaccharide vaccine, 23 valent Jacob Wild Other [facility] 04-11-2013 tetanus and diphther ia toxoids, adsorbed, preservative free, for adult use (5 Lf of tetanus toxoid and 2 Lf of diphtheria toxoid) Jacob Hook Other [facility] 05-21-2012 zoster vaccine, live Sanju Hook Other [facility] Payers Date Payer Category Payer Medicare [id number] 1958 Unknown [id number] 1945 Unknown [id number] 1945 Unknown [id number] Unknown Regular Insurance [id number] Social History Date Type Detail Facility Sex Assigned At [facility] Other Start: 09-03-2023 End: 09-03-2023 Tobacco smoking status NHIS Never smoked tobacco (finding) [facility] Start: 1945 Sex Assigned At Male F [facility] Start: 05-07-2024 Sex Male (finding) [facility] Clinical Notes 08-27-2022 to 02-26-2024 Note Date [...] kidney disease acute May 07 024 9:23am [facility] Work Phone: 1(658) 201-509401-02-2024 Evaluation note* Encounter Date Diagnosis Assessment Notes Treatment Notes Treatment Clinical Notes Jun, Elevated cholesterol (ICD-10 - E78.00) [facility] Other 11-07-2023 Evaluation note* Encounter Date Diagnosis Assessment Notes Treatment Notes Treatment Clinical Notes Apr, Autoimmune thyroiditis (ICD-10 - E06.3) [facility] Other 10-09-2023 Evaluation note* Encounter Date Diagnosis Assessment Notes Treatment Notes Treatment Clinical Notes Mar, Acute non-recurrent maxillary sinusitis (ICD-10 - J01.00) Instructed to use Robitussin or Mucinex for cough, saline or Flonase NS for congestion, Tylenol for pain and fever. Mar, Impacted cerumen of right ear (ICD-10 - H61.21) Debrox q HS Irrigate clear on Sunday if desires. Avoid use of QTip [facility] Other 09-19-2023 Evaluation note* Encounter Date Diagnosis [...] and SONDRA Feb, Nocturia (ICD-10 - R35.1) [facility] Other 06-28-2023 Evaluation note* Encounter Date Diagnosis Assessment Notes Treatment Notes Treatment Clinical Notes Nov, Primary hypertension (ICD-10 - I10) [facility] Other 03-21-2023 Evaluation note* Encounter Date Diagnosis [...] and exercise. Reviewed age-appropriate preventive testing recommended. [facility] Other 03-12-2023 Evaluation note* Encounter Date Diagnosis [...] High risk medication use (ICD-10 - Z79.899) [facility] Other Evaluation noteNo InformationNort Jaypore Other Evaluation note* Diagnosis Onset Date Resolution Status ASHD (arteriosclerotic heart disease) acute GERD (gastroesophageal reflux disease) acute Hypothyroid acute Primary hypertension acute Screening PSA (prostate specific antigen) acute Stage 3b chronic kidney disease acute Medicare annual wellness visit, subsequent noneactive [facility] Work Phone: Evaluation note* Diagnosis Onset Date Resolution Status ASHD (arteriosclerotic heart disease) acute GERD (gastroesophageal reflux disease) acute Hypothyroid acute Primary hypertension acute Stage 3b chronic kidney disease acute Rotator cuff strain noneacti ve [facility] Work Phone: History general Narrative - [...] COLONOSCOPY 2019 Hospitalization History SEE SURGICAL HX [facility] Other Summary Purpose Family History No Family [...] FLU ShotRIGHT EAR PLUGGED6 [facility] (unrecognized sec tion and [...] BE BASED ON THE PRIMARY CLINICAL RECORDS. [facility] [employer] [facility]. provides no warranty or guarantee of the accuracy or completeness of information in this document.
[2024-09-12 10:33] LABS: Basophils Absolute Auto 0.1 10^3/uL (0.0-0.1); Basophils Percent Auto 1.6 % (0.2-2.0); Eosinophils Absolute Auto 0.3 10^3/uL (0.0-0.7); Eosinophils Percent Auto 3.9 % (0.9-7.0); Hematocrit 46.3 % (42.0-54.0); Hemoglobin 15.7 g/dL (14.0-18.0); Immature Granulocytes Abs Auto 0.02 10^3/uL (0.00-0.03); Immature Granulocytes Pct Auto 0.3 % (0.0-0.5); Lymphocytes Absolute Auto 2.1 10^3/uL (1.2-3.8); Lymphocytes Percent Auto 33.3 % (20.5-60.0); Mean Corpuscular HGB Conc 33.9 g/dL (29.9-35.2); Mean Corpuscular Hemoglobin 29.1 pg (25.9-34.0); Mean Corpuscular Volume 85.7 fL (80.0-94.0); Mean Platelet Volume 8.8 fL (9.5-13.5); Monocytes Absolute Auto 0.6 10^3/uL (0.3-0.8); Neutrophils Absolute Auto 3.2 10^3/uL (1.4-6.5); Neutrophils Percent Auto 50.9 % (43.0-75.0); Platelet Count 187 10^3/uL (150-450); Red Cell Distribution Width 13.9 % (11.0-15.0); White Blood Count 6.4 10^3/uL (4.0-11.0)
[2024-09-12 11:00] LABS: Creatinine Urine Random 109.12 mg/dL (20.00-300.00); Microalbum Creatinine Ratio Ur 12.8 mg/g (0.0-29.9); Microalbumin Urine Random 1.4 mg/dL (<=30.0)
[2024-09-12 11:53] LABS: Prostate Specific Antigen Scrn 1.94 ng/mL (<=4.00)
[2024-09-12 13:06] LABS: Alanine Aminotransferase 21 U/L (16-63); Alkaline Phosphatase 127 U/L (46-116); Anion Gap 15.2; Aspartate Amino Transferase 18 U/L (15-37); BUN Creatinine Ratio 17.1; Bilirubin Total 0.9 mg/dL (0.2-1.0); Calcium 8.8 mg/dL (8.5-10.1); Carbon Dioxide 23.9 mmol/L (21.0-32.0); Chloride 105 mmol/L (98-107); Estimated GFR (African America 43 (>=60 mL/min/1.73m^2); Estimated GFR (Non-African Ame 35 (>=60 mL/min/1.73m^2); Glucose 103 mg/dL (74-106); Potassium 4.1 mmol/L (3.5-5.1); Sodium 140 mmol/L (136-145)
[2024-09-12 13:07] LABS: Albumin Globulin Ratio 0.9; Albumin Level 3.5 g/dL (3.4-5.0); Chol HDL Ratio 3.7; Cholesterol 132 mg/dL (<=200); Globulin 3.9 g/dL; HDL Cholesterol 36 mg/dL (40-60); Thyroid Stimulating Hormone 0.976 uIU/mL (0.358-3.740); Total Protein 7.4 g/dL (6.4-8.2); Triglycerides 140 mg/dL (<=150)
== END 2024-09-12 09:55 | disposition home or self-care (01) ==
LOC: LAB 09:56
PROVIDERS: PCP Internal Medicine; Visit Provider Internal Medicine
DX: E78.00 Pure hypercholesterolemia, unspecified (principal); N18.32 Chronic kidney disease, stage 3b; I25.10 Atherosclerotic heart disease of native coronary artery without angina pectoris; E03.8 Other specified hypothyroidism; E06.3 Autoimmune thyroiditis; Z12.5 Encounter for screening for malignant neoplasm of prostate; I12.9 Hypertensive chronic kidney disease with stage 1 through stage 4 chronic kidney disease, or unspecified chronic kidney disease
CPT/HCPCS: 36415; 80053; 80061; 82043; 82570; 84443; 85025; G0103

== ENCOUNTER 2025-02-24 10:42 | Outpatient (OUT) | payer MEDICARE, SELFPAY ==
--- OUTSIDE RECORDS SUMMARY | 2025-02-24 10:48 | XMS_ITS | Clinical Summary ---
Author Organization [facility] Address [address] [place] [address] Care Team Providers Care Ethics Instructor Name Role Phone Tate Rome Primary Care Provider [phone] Social History Tobacco Use Types Packs/Day Years Used Date Smoking Tobacco: Never Assessed Sex and Gender Information Value Date Recorded Sex Assigned at Not on file Legal Sex Male 10:00 AM EST Gender Identity Not on file Sexual Orientation Not on file Plan of Treatment Not on file Insurance [employer] Care Teams Ethics Instructor Relationship Specialty Start Date End Date Tate Rome [address] [id number] PCP - General 04/21/03
--- OUTSIDE RECORDS SUMMARY | 2025-02-24 10:48 | XMS_ITS | Clinical Summary ---
Author Organization [facility] Address [address] [address] Care Team Providers Care Granite [employer] Terrazzo Finisher Name Role Phone Unavailable Primary Care Provider Unavailabl e Social History Tobacco Use Types Packs/Day Years Used Date Smoking Tobacco: Never Assessed [place] Safety & Environment Answer Date Rec orded Fear of Current or Ex-Partner Not on file Emotionally Abused Not on file 08/09/2023 Physically Abused Not on file 08/09/2023 Sexually Abused Not on file 08/09/2023 Physically or Sexually Abused Not on file Sex and Gender Information Value Date Recorded Sex Assigned at Not on file Legal Sex Male 12:43 AM EDT Gender Identity Not on file Sexual Orientation Not on file Plan of Treatment Not on file
--- OUTSIDE RECORDS SUMMARY | 2025-02-24 10:50 | XMS_ITS | CCD ---
Author Organization [facility] Care Team Providers Care Arborist Name Role Phone DR JACOB HOOK Primary [...] Sig (Original) amLODIPine 2.5 mg oral tablet (2 sources) Dihydropyridine Calcium Channel Fernando Start: 02-26-2024 take 1 tablet by mouth once daily Amlodipine 2.5 mg tablet Active 2.5 MG PO Daily February 26, 2024 12:00am atorvastatin 40 mg oral tablet (15 sources) HMG-CoA Reductase Inhibitor Start: 04-16-2024 take 1 tablet by mouth once daily Atorvastatin 40 mg tablet Active 0 .ROUTE .COMPLEX April 16, 2024 10:50pm TAKE 1 TABLET BY MOUTH EVERY DAY FOR 90 DAYS Start: 09-03-2023 End: 04-16-2024 take 1 tablet by mouth once daily Atorvastatin 40 mg tablet Discontinued 40 MG PO Daily September 03, 2023 12:00am April 16, 2024 10:50pm take 1 tablet by chitra th every twenty-four hours Atorvastatin Calcium 40 MG 1 tablet Orally Once a day for 90 days Active azithromycin 250 mg oral tablet (4 sources) Macrolide Antimicrobial Start: 03-26-2023 Azithromycin 250 MG as directed Orally daily for 5 days Mar, Active levothyroxine sodium 0.137 mg oral tablet (14 sources) l-Thyroxine Start: 05-29-2024 take 1 tablet by mouth once daily Levothyroxine 137 mcg tablet Active 0 .ROUTE .COMPLEX May 29, 2024 4:55pm TAKE 1 TABLET BY MOUTH EVERY DAY ON AN EMPTY STOMACH FOR 90 DAYS Start: 09-03-2023 End: 05-29-2024 take 1 capsule by mouth once daily Levothyroxine 137 mcg capsule Discontinued 137 MCG PO Daily September 03, 2023 12:00am May 29, 2024 4:55pm take 1 tablet by chitra th once daily Levothyroxine Sodium 137 MCG TAKE 1 TABLET BY MOUTH ONCE DAILY ON AN EMPTY STOMACH for 90 Active take 1 tablet by chitra th once daily Levothyroxine Sodium 137 MCG TAKE 1 TABLET BY MOUTH ONCE DAILY ON AN EMPTY STOMACH for 90 Active losartan potassium 25 mg oral tablet (17 sources) Angiotensin 2 Receptor Fernando Start: 04-13-2024 take 1 tablet by mouth twice daily Losartan 25 mg tablet Active 0 .ROUTE .COMPLEX 180 April 13, 2024 7:29pm TAKE 1 TABLET BY MOUTH TWICE A DAY Start: 02-26-2024 End: 04-13-2024 take 2 tablets by mouth once daily Losartan 25 mg tablet Discontinued 50 MG PO Daily February 26, 2024 1:01pm April 13, 2024 7:29pm Start: 09-03-2023 End: 02-26-2024 take 1 tablet by mouth twice daily Losartan 25 mg tablet Discontinued 25 MG PO Twice daily September 03, 2023 12:00am February 26, 2024 1:01pm take 1 tablet by chitra th twice daily Losartan Potassium 25 MG 1 tablet Orally twice daily for 90 days Active take 1 tablet by chitra th every twenty-four hours Losartan Potassium 25 MG 1 tablet Orally Once a day for 90 days Active 24 hr metoprolol succinate 25 mg extended release oral tablet (17 sources) beta-Adrenergic Fernando Start: 09-12-2023 End: 07-22-2024 take 1 tablet by mouth once daily Metoprolol Succinate 25 mg tablet extended release 24 hr Active 0 .ROUTE .COMPLEX 90 July 22, 2024 9:46pm TAKE 1 TABLET BY MOUTH EVERYDAY Start: 09-03-2023 End: 09-12-2023 take 1 tablet by mouth once daily Metoprolol Succinate 25 mg tablet extended release 24 hr Discontinued 25 MG PO Daily September 03, 2023 12:00am September 12, 2023 6:09pm take 1 tablet by chitra th once daily Metoprolol Succinate ER 25 MG Take 1 tablet by mouth once daily Active sildenafil 20 mg oral tablet (19 sources) Phosphodiesterase 5 Inhibitor Start: 01-02-2024 End: 05-28-2024 take 2 tablets by mouth once daily as needed Sildenafil (Pulm.Hypertension) 20 mg tablet Active 0 .ROUTE .COMPLEX 54 May 28, 2024 6:57pm TAKE 2 TABLETS BY MOUTH DAILY NEEDED FOR ERECTILE DYSFUNCTION Start: 09-03-2023 End: 01-02-2024 Sildenafil (Pulm.Hypertensio n) 20 mg tablet Discontinued 40 MG PO Daily as needed for erectile dysfunction September 03, 2023 12:00am January 02, 2024 10:12am Start: 09-03-2023 End: 01-02-2024 take 40 mg [...] Problem Date Documented Date Episodic/Chronic Abdominal pain (7 sources) Lower abdominal pain, unspecified; Translations: [Abdominal pain] Onset: 05-06-2022 Episodic Acute bronchitis (4 sources) Acute infective bronchitis; Translations: [Acute bronchitis due to other specified organisms] 05-07-2024 Episodic Biliary tract disease (4 sources) Acute and chronic cholecystitis; Translations: [Acute cholecystitis with chronic cholecystitis] 05-07-2024 Episodic Chronic kidney disease (18 sources) Chronic kidney disease stage 3B ; Translations: [Stage 3b chronic kidney disease] 09-03-2023 Chronic Coronary atherosclerosis and other heart disease (20 sources) Coronary arteriosclerosis; Translations: [Atherosclerotic heart disease of [place] coronary artery without angina pectoris] Chronic Disorders of lipid metabolism (20 sources) Pure hypercholesterolemia, unspecified; Translations: [Pure hypercholesterolemia] Onset: 08-29-2022 Chronic Esophageal disorders (12 sources) Gastro-esophageal reflux disease with esophagitis; Translations: [Gastroesophageal reflux disease with esophagitis without hemorrhage] 09-08-2023 Chronic Essential hypertension (20 sources) Essential (primary) hypertension; Translations: [Essential hypertension] Onset: 09-04-2022 Chronic Genitourinary symptoms and ill-defined conditions (2 sources) Nocturia Episodic Hyperplasia of prostate (16 sources) Nocturia due to benign prostatic hypertrophy; Translations: [Benign prostatic hyperplasia with lower urinary tract symptoms] Chronic Nonspecific chest pain (9 sources) Precordial pain; Translations: [Precordial pain] Episodic Other aftercare (2 sources) 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; Translations: [OTH SKILLED NURSING CURRENT DRUG THERAPY] Onset: 09-04-2022 Episodic Other connective tissue disease (9 sources) Olecranon bursitis; Translations: [Olecranon bursitis, left elbow] Episodic Other connective tissue disease (1 source) Personal history of other diseases of the musculoskeletal system and connective tissue Episodic Other ear and sense organ disorders (1 source) Impacted cerumen, right ear Episodic Other lower respiratory disease (2 sources) Cough; Translations: [Cough] 05-07-2024 Episodic Other screening for suspected conditions (not mental disorders or infectious disease) (8 sources) Encounter for screening for malignant neoplasm of prostate; Translations: [Patient encounter status] Onset: 09-04-2022 Episodic Comment on above: PSA: 1.90 - 08/2024, 1.94 - 08/2024 Other upper respiratory infections (1 source) Acute [...] Range Facility Basophils Auto (Bld) [#/Vol] on 09-12-2024 Basophils (Bld) [#/Vol] Automated basophil count 0.0-0.1 [facility] Basophils/100 WBC Auto (Bld) on 09-12-2024 Basophils/100 WBC (Bld) Automated basophil % 0.2-2.0 [facility] Cholesterol in LDL Calc [Mas s/Vol]on 09-12-2024 Cholesterol in LDL [Mass/Vol] Cholesterol in LDL [Mass/volume] in Serum or Plasma by calculation [facility] Comment on above: <100 mg/dl [id number] 0-129 mg/dl NEAR OR ABOVE [id number] mg/dl BORDERLINE [id number] mg/dl HIGH>190 mg/dl VERY HIGH Cholesterol in VLDL Calc [Ma ss/Vol]on 09-12-2024 Cholesterol in VLDL [Mass/Vol] Cholesterol in VLDL [Mass/volume] in Serum or Plasma by calculation [facility] Eosinophils/100 WBC Auto (Bl d)on 09-12-2024 Eosinophils/100 WBC (Bld) Automated eosinophil % 0.9-7.0 [facility] Erythrocyte distribution wid th Auto (RBC) [Ratio]on 09-12-2024 Erythrocyte distribution width (RBC) [Ratio] Erythrocyte distribution width [Ratio] by Automated count 11.0-15.0 [facility] Estimated glomerular filtrat ion rate (GFR) non- Americanon 09-12-2024 GFR/1.73 sq M.predicted among non-blacks MDRD (S/P/Bld) [Vol rate/Area] Estimated glomerular filtration rate (GFR) non- Low >=60 mL/min/1.73m 2 [facility] Globulin Calc (S) [Mass/Vol] on 09-12-2024 Globulin (S) [Mass/Vol] Serum globulin measurement by calculation (mass/volume) [facility] Hematocrit Auto (Bld) [Volum e fraction]on 09-12-2024 Hematocrit (Bld) [Volume fraction] Hematocrit [Volume Fraction] of Blood by Automated count 42.0-54.0 [facility] Hemoglobin [Mass/volume] in Bloodon 09-12-2024 Hemoglobin (Bld) [Mass/Vol] Hemoglobin [Mass/volume] in Blood 14.0-18.0 [facility] Laboratory - Chemistry and C hemistry - challengeon 09-12-2024 Albumin [Mass/Vol] 3.5 g/dL 3.4-5.0 [facility] ALP [Catalytic activity/Vol] 127 U/L High 46-116 [facility] ALT [Catalytic activity/Vol] 21 U/L 16-63 [facility] AST [Catalytic activity/Vol] 18 U/L 15-37 [facility] Bilirubin [Mass/Vol] 0.9 mg/dL 0.2-1.0 [facility] Calcium [Mass/Vol] 8.8 mg/dL 8.5-10.1 [facility] Chloride [Moles/Vol] 105 mmol/L 98-107 [facility] Cholesterol [Mass/Vol] 132 mg/dL <=200 [facility] Cholesterol in HDL [Mass/Vol] 36 mg/dL Low 40-60 [facility] Comment on above: > or =60 mg/dl - LOW CARDIOVASCULAR RISK<40 mg/dl - HIGH CARDIOVASCULAR RISK CO2 [Moles/Vol] 23.9 mmol/L 21.0-32.0 [facility] Creatinine [Mass/Vol] 1.87 mg/dL High 0.70-1.30 [facility] GFR/1.73 sq M.predicted MDRD (S/P/Bld) [Vol rate/Area] 43 mL/min/{1.73_m2} Low >=60 mL/min/1.73m 2 [facility] Glucose [Mass/Vol] 103 mg/dL 74-106 [facility] Potassium [Moles/Vol] 4.1 mmol/L 3.5-5.1 [facility] Protein [Mass/Vol] 7.4 g/dL 6.4-8.2 [facility] Sodium [Moles/Vol] 140 mmol/L 136-145 [facility] Triglyceride [Mass/Vol] 140 mg/dL <=150 [facility] TSH Qn 0.976 m[IU]/L 0.358-3.740 [facility] Urea nitrogen [Mass/Vol] 32.0 mg/dL High 7.0-18.0 [facility] Urea nitrogen/Creatinine [Mass ratio] 17.1 mg/mg [facility] Laboratory - Hematology and Cell countson 09-12-2024 Immature granulocytes/100 WBC (Bld) 0.3 % 0.0-0.5 [facility] Leukocytes [#/volume] correc zach for nucleated erythrocytes in Blood by Automated counon 09-12-2024 WBC corrected for nucl RBC Auto (Bld) [#/Vol] Leukocytes [#/volume] corrected for nucleated erythrocytes in Blood by Automated coun 4.0-11.0 [facility] Lymphocytes Auto (Bld) [#/Vo l]on 09-12-2024 Lymphocytes (Bld) [#/Vol] Lymphocytes [#/volume] in Blood by Automated count 1.2-3.8 [facility] Lymphocytes/100 WBC Auto (Bl d)on 09-12-2024 Lymphocytes/100 WBC (Bld) Lymphocytes/100 leukocytes in Blood by Automated count 20.5-60.0 [facility] MCH Auto (RBC) [Entitic mass ]on 09-12-2024 MCH (RBC) [Entitic mass] MCH [Entitic mass] by Automated count 25.9-34.0 [facility] MCHC Auto (RBC) [Mass/Vol]on 09-12-2024 MCHC (RBC) [Mass/Vol] MCHC [Mass/volume] by Automated count 29.9-35.2 [facility] MCV Auto (RBC) [Entitic vol] on 09-12-2024 MCV (RBC) [Entitic vol] MCV [Entitic volume] by Automated count 80.0-94.0 [facility] Microalbumin [Mass/volume] i n Urineon 09-12-2024 Albumin DL <= 20 mg/L (U) [Mass/Vol] Microalbumin [Mass/volume] in Urine <=30.0 [facility] Monocytes Auto (Bld) [#/Vol] on 09-12-2024 Monocytes (Bld) [#/Vol] Automated blood monocyte count 0.3-0.8 [facility] Monocytes/100 WBC Auto (Bld) on 09-12-2024 Monocytes/100 WBC (Bld) Automated monocyte % 1.7-12.0 [facility] Neutrophils Auto (Bld) [#/Vo l]on 09-12-2024 Neutrophils (Bld) [#/Vol] Neutrophils [#/volume] in Blood by Automated count 1.4-6.5 [facility] Neutrophils/100 WBC Auto (Bl d)on 09-12-2024 Neutrophils/100 WBC (Bld) Automated neutrophil % 43.0-75.0 [facility] No Panel Informationon 09-12 Eosinophils # (Auto) 0.3 10 3/uL 0.0-0.7 [facility] Immature Granulocyte # (Auto) 0.02 10 3/uL 0.00-0.03 [facility] Prostate Specific Antigen Screen 1.94 ng/mL <=4.00 [facility] Urine Random Creatinine 109.12 mg/dL 20.00-300.00 [facility] Platelet mean volume Auto (B ld) [Entitic vol]on 09-12-2024 Platelet mean volume (Bld) [Entitic vol] Platelet mean volume [Entitic volume] in Blood by Automated count Low 9.5-13.5 [facility] Platelets Auto (Bld) [#/Vol] on 09-12-2024 Platelets (Bld) [#/Vol] Platelets [#/volume] in Blood by Automated count 150-450 [facility] RBC Auto (Bld) [#/Vol]on RBC (Bld) [#/Vol] Erythrocytes [#/volu me] in Blood by Automated count 4.70-6.10 [facility] Serum or plasma albumin/glob ulin mass ratioon 09-12-2024 Albumin/Globulin [Mass ratio] Serum or plasma albumin/globulin mass ratio [facility] Serum or plasma anion gap de terminationon 09-12-2024 Anion gap [Moles/Vol] Serum or plasma anion gap determination [facility] Serum or plasma total choles terol/high density lipoprotein (HDL) cholesterol mass rolf 09-12-2024 Cholesterol.total/C holesterol in HDL [Mass ratio] Serum or plasma total cholesterol/high density lipoprotein (HDL) cholesterol mass rat [facility] Comment on above: 3.3 - 4.4 LOW RISK4. 4 - 7.1 AVERAGE RISK7.1 - 11.0 MODERATE RISK>11.0 HIGH RISK Urine microalbumin/creatinin e mass ratioon 09-12-2024 Albumin/Creatinine DL <= 20 mg/L (U) [Mass ratio] Urine microalbumin/creatinine mass ratio 0.0-29.9 [facility] Comment on above: NO MICROALBUMINURIA 0-29 MG/GCLINICAL MICROALBUMINURIA 30-300 MG/GMACROALBUMINURIA >300 MG/G Basophils Auto (Bld) [#/Vol] on 05-05-2024 Basophils (Bld) [#/Vol] Automated basophil count 0.0-0.1 [facility] Basophils/100 WBC Auto (Bld) on 11-18-2024 Basophils/100 WBC (Bld) Automated basophil % 0.2-2.0 [facility] Eosinophils/100 WBC Auto (Bl d)on 05-05-2024 Eosinophils/100 WBC (Bld) Automated eosinophil % 0.9-7.0 [facility] Erythrocyte distribution wid th Auto (RBC) [Ratio]on 05-05-2024 Erythrocyte distribution width (RBC) [Ratio] Erythrocyte distribution width [Ratio] by Automated count 11.0-15.0 [facility] Estimated glomerular filtrat ion rate (GFR) non- Americanon 05-05-2024 GFR/1.73 sq M.predicted among non-blacks MDRD (S/P/Bld) [Vol rate/Area] Estimated glomerular filtration rate (GFR) non- Low >=60 mL/min/1.73m 2 [facility] Globulin Calc (S) [Mass/Vol] on 05-05-2024 Globulin (S) [Mass/Vol] Serum globulin measurement by calculation (mass/volume) [facility] Hematocrit Auto (Bld) [Volum e fraction]on 05-05-2024 Hematocrit (Bld) [Volume fraction] Hematocrit [Volume Fraction] of Blood by Automated count 42.0-54.0 [facility] Hemoglobin [Mass/volume] in Bloodon 05-05-2024 Hemoglobin (Bld) [Mass/Vol] Hemoglobin [Mass/volume] in Blood 14.0-18.0 [facility] Laboratory - Chemistry and C hemistry - challengeon 05-05-2024 Bilirubin Ql (U) Negative NEGATIVE [facility] Glucose (U) [Mass/Vol] Negative NEGATIVE [facility] Ketones Ql (U) Negative NEGATIVE [facility] pH (U) 6.0 [pH] 5.0-9.0 [facility] Specific gravity (U) [Rel density] 1.025 1.005-1.025 [facility] Urobilinogen Qn (U) 0.2 {Mic'U}/dL 0.2-1.0 [facility] Albumin [Mass/Vol] 3.3 g/dL Low 3.4-5.0 [facility] ALP [Catalytic activity/Vol] 125 U/L High 46-116 [facility] ALT [Catalytic activity/Vol] 32 U/L 16-63 [facility] Amylase [Catalytic activity/Vol] 152 U/L High 25-115 [facility] AST [Catalytic activity/Vol] 22 U/L 15-37 [facility] Bilirubin [Mass/Vol] 0.6 mg/dL 0.2-1.0 [facility] Bilirubin.direct [Mass/Vol] 0.1 mg/dL 0.0-0.2 [facility] Calcium [Mass/Vol] 8.9 mg/dL 8.5-10.1 [facility] Chloride [Moles/Vol] 106 mmol/L 98-107 [facility] CO2 [Moles/Vol] 22.2 mmol/L 21.0-32.0 [facility] Creatinine [Mass/Vol] 2.27 mg/dL High 0.70-1.30 [facility] GFR/1.73 sq M.predicted MDRD (S/P/Bld) [Vol rate/Area] 34 mL/min/{1.73_m2} Low >=60 mL/min/1.73m 2 [facility] Glucose [Mass/Vol] 146 mg/dL High 74-106 [facility] Lipase [Catalytic activity/Vol] 55.0 U/L 16.0-77.0 [facility] Potassium [Moles/Vol] 4.0 mmol/L 3.5-5.1 [facility] Protein [Mass/Vol] 7.5 g/dL 6.4-8.2 [facility] Sodium [Moles/Vol] 141 mmol/L 136-145 [facility] Urea nitrogen [Mass/Vol] 24.0 mg/dL High 7.0-18.0 [facility] Urea nitrogen/Creatinine [Mass ratio] 10.6 mg/mg [facility] Laboratory - Hematology and Cell countson 05-05-2024 Immature granulocytes/100 WBC (Bld) 0.1 % 0.0-0.5 [facility] Laboratory - Specimen inform ationon 05-05-2024 Appearance (U) CLEAR CLEAR [facility] Color (U) LT. YELLOW YELLOW [facility] Laboratory - Urinalysison Leukocyte esterase Test strip Ql (U) Negative NEGATIVE [facility] Mucus Ql (Urine sed) TRACE Abnormal NONE SEEN [facility] Nitrite Ql (U) Negative NEGATIVE [facility] Protein Ql (U) Negative NEG/TRACE [facility] Leukocytes [#/volume] correc zach for nucleated erythrocytes in Blood by Automated counon 05-05-2024 WBC corrected for nucl RBC Auto (Bld) [#/Vol] Leukocytes [#/volume] corrected for nucleated erythrocytes in Blood by Automated coun 4.0-11.0 [facility] Lymphocytes Auto (Bld) [#/Vo l]on 05-05-2024 Lymphocytes (Bld) [#/Vol] Lymphocytes [#/volume] in Blood by Automated count 1.2-3.8 [facility] Lymphocytes/100 WBC Auto (Bl d)on 05-05-2024 Lymphocytes/100 WBC (Bld) Lymphocytes/100 leukocytes in Blood by Automated count Low 20.5-60.0 [facility] MCH Auto (RBC) [Entitic mass ]on 05-05-2024 MCH (RBC) [Entitic mass] MCH [Entitic mass] by Automated count 25.9-34.0 [facility] MCHC Auto (RBC) [Mass/Vol]on 05-05-2024 MCHC (RBC) [Mass/Vol] MCHC [Mass/volume] by Automated count 29.9-35.2 [facility] MCV Auto (RBC) [Entitic vol] on 05-05-2024 MCV (RBC) [Entitic vol] MCV [Entitic volume] by Automated count 80.0-94.0 [facility] Monocytes Auto (Bld) [#/Vol] on 05-05-2024 Monocytes (Bld) [#/Vol] Automated blood monocyte count 0.3-0.8 [facility] Monocytes/100 WBC Auto (Bld) on 05-05-2024 Monocytes/100 WBC (Bld) Automated monocyte % 1.7-12.0 [facility] Neutrophils Auto (Bld) [#/Vo l]on 05-05-2024 Neutrophils (Bld) [#/Vol] Neutrophils [#/volume] in Blood by Automated count 1.4-6.5 [facility] Neutrophils/100 WBC Auto (Bl d)on 05-05-2024 Neutrophils/100 WBC (Bld) Automated neutrophil % 43.0-75.0 [facility] No Panel Informationon 05-05 Urine Bacteria TRACE #/HPF Abnormal NONE SEEN [facility] Urine Occult Blood MODERATE Abnormal NEGATIVE [facility] Urine Other Casts NONE SEEN #/LPF NONE [facility]EN [facility] Urine Other Crystals None Seen #/HPF None Seen [facility] Urine RBC 10-20 #/HPF Abnormal 0-2 [facility] Urine Squamous Epithelial Cells FEW #/LPF Abnormal NONE/RARE [facility] Urine WBC NONE SEEN #/HPF NONE SEEN [facility] Eosinophils # (Auto) 0.2 10 3/uL 0.0-0.7 [facility] Immature Granulocyte # (Auto) 0.01 10 3/uL 0.00-0.03 [facility] Platelet mean volume Auto (B ld) [Entitic vol]on 05-05-2024 Platelet mean volume (Bld) [Entitic vol] Platelet mean volume [Entitic volume] in Blood by Automated count 9.5-13.5 [facility] Platelets Auto (Bld) [#/Vol] on 05-05-2024 Platelets (Bld) [#/Vol] Platelets [#/volume] in Blood by Automated count 150-450 [facility] RBC Auto (Bld) [#/Vol]on RBC (Bld) [#/Vol] Erythrocytes [#/volu me] in Blood by Automated count 4.70-6.10 [facility] Serum or plasma albumin/glob ulin mass ratioon 05-05-2024 Albumin/Globulin [Mass ratio] Serum or plasma albumin/globulin mass ratio [facility] Serum or plasma anion gap de terminationon 05-05-2024 Anion gap [Moles/Vol] Serum or plasma anion gap determination [facility] Estimated glomerular filtrat ion rate (GFR) non- Americanon 02-20-2024 GFR/1.73 sq M.predicted among non-blacks MDRD (S/P/Bld) [Vol rate/Area] 41 mL/min/{1.73_m2} Low >=60 [facility] GFR/1.73 sq M.predicted among non-blacks MDRD (S/P/Bld) [Vol rate/Area] Estimated glomerular filtration rate (GFR) non- Low >=60 [facility] Laboratory - Chemistry and C hemistry - challengeon 02-20-2024 Calcium [Mass/Vol] 9.2 mg/dL 8.5-10.1 [facility] Chloride [Moles/Vol] 105 mmol/L 98-107 [facility] CO2 [Moles/Vol] 24.1 mmol/L 21.0-32.0 [facility] Creatinine [Mass/Vol] 1.65 mg/dL High 0.70-1.30 [facility] GFR/1.73 sq M.predicted MDRD (S/P/Bld) [Vol rate/Area] 49 mL/min/{1.73_m2} Low >=60 [facility] Glucose [Mass/Vol] 112 mg/dL High 74-106 [facility] Potassium [Moles/Vol] 4.0 mmol/L 3.5-5.1 [facility] Sodium [Moles/Vol] 138 mmol/L 136-145 [facility] Urea nitrogen [Mass/Vol] 20.0 mg/dL High 7.0-18.0 [facility] Urea nitrogen/Creatinine [Mass ratio] 12.1 mg/mg [facility] Serum or plasma anion gap de terminationon 02-20-2024 Anion gap [Moles/Vol] 12.9 mmol/L [facility] Anion gap [Moles/Vol] Serum or plasma anion gap determination [facility] Basophils Auto (Bld) [#/Vol] on 09-04-2023 Basophils (Bld) [#/Vol] 0.1 10 3/uL 0.0-0.1 [facility] Basophils/100 WBC Auto (Bld) on 09-04-2023 Basophils/100 WBC (Bld) 1.1 % 0.2-2.0 [facility] Cholesterol in LDL Calc [Mas s/Vol]on 09-04-2023 Cholesterol in LDL [Mass/Vol] 50.0 mg/dL [facility] Comment on above: <100 mg/dl [id number] 0-129 mg/dl NEAR OR ABOVE [id number] mg/dl BORDERLINE [id number] mg/dl HIGH>190 mg/dl VERY HIGH Cholesterol in VLDL Calc [Ma ss/Vol]on 09-04-2023 Cholesterol in VLDL [Mass/Vol] 33.8 mg/dL [facility] Eosinophils/100 WBC Auto (Bl d)on 09-04-2023 Eosinophils/100 WBC (Bld) 2.7 % 0.9-7.0 [facility] Erythrocyte distribution wid th Auto (RBC) [Ratio]on 09-04-2023 Erythrocyte distribution width (RBC) [Ratio] 13.8 % 11.0-15.0 [facility] Estimated glomerular filtrat ion rate (GFR) non- Americanon 09-04-2023 GFR/1.73 sq M.predicted among non-blacks MDRD (S/P/Bld) [Vol rate/Area] 34 mL/min/{1.73_m2} >=60 [facility] Globulin Calc (S) [Mass/Vol] on 09-04-2023 Globulin (S) [Mass/Vol] 3.8 g/dL [facility] Hematocrit Auto (Bld) [Volum e fraction]on 09-04-2023 Hematocrit (Bld) [Volume fraction] 46.4 % 42.0-54.0 [facility] Hemoglobin [Mass/volume] in Bloodon 09-04-2023 Hemoglobin (Bld) [Mass/Vol] 15.2 g/dL 14.0-18.0 [facility] Laboratory - Chemistry and C hemistry - challengeon 09-04-2023 Albumin [Mass/Vol] 3.5 g/dL 3.4-5.0 [facility] ALP [Catalytic activity/Vol] 120 U/L 46-116 [facility] ALT [Catalytic activity/Vol] 36 U/L 16-63 [facility] AST [Catalytic activity/Vol] 21 U/L 15-37 [facility] Bilirubin [Mass/Vol] 1.2 mg/dL 0.2-1.0 [facility] Calcium [Mass/Vol] 9.3 mg/dL 8.5-10.1 [facility] Chloride [Moles/Vol] 106 mmol/L 98-107 [facility] Cholesterol [Mass/Vol] 116 mg/dL <=200 [facility] Cholesterol in HDL [Mass/Vol] 33 mg/dL 40-60 [facility] Comment on above: > or =60 mg/dl - LOW CARDIOVASCULAR RISK<40 mg/dl - HIGH CARDIOVASCULAR RISK CO2 [Moles/Vol] 23.6 mmol/L 21.0-32.0 [facility] Creatinine [Mass/Vol] 1.91 mg/dL 0.70-1.30 [facility] GFR/1.73 sq M.predicted MDRD (S/P/Bld) [Vol rate/Area] 42 mL/min/{1.73_m2} >=60 [facility] Glucose [Mass/Vol] 115 mg/dL 74-106 [facility] Potassium [Moles/Vol] 4.2 mmol/L 3.5-5.1 [facility] Protein [Mass/Vol] 7.3 g/dL 6.4-8.2 [facility] Sodium [Moles/Vol] 142 mmol/L 136-145 [facility] Triglyceride [Mass/Vol] 169 mg/dL <=150 [facility] TSH Qn 0.864 m[IU]/L 0.358-3.740 [facility] Urea nitrogen [Mass/Vol] 22.0 mg/dL 7.0-18.0 [facility] Urea nitrogen/Creatinine [Mass ratio] 11.5 mg/mg [facility] - Hematology and Cell countson 09-04-2023 Immature granulocytes/100 WBC (Bld) 0.1 % 0.0-0.5 [facility] Leukocytes [#/volume] correc zach for nucleated erythrocytes in Blood by Automated counon 09-04-2023 WBC corrected for nucl RBC Auto (Bld) [#/Vol] 7.0 10 3/uL 4.0-11.0 [facility] Lymphocytes Auto (Bld) [#/Vo l]on 09-04-2023 Lymphocytes (Bld) [#/Vol] 2.0 10 3/uL 1.2-3.8 [facility] Lymphocytes/100 WBC Auto (Bl d)on 09-04-2023 Lymphocytes/100 WBC (Bld) 28.1 % 20.5-60.0 [facility] MCH Auto (RBC) [Entitic mass ]on 09-04-2023 MCH (RBC) [Entitic mass] 29.2 pg 25.9-34.0 [facility] MCHC Auto (RBC) [Mass/Vol]on 09-04-2023 MCHC (RBC) [Mass/Vol] 32.8 g/dL 29.9-35.2 [facility] MCV Auto (RBC) [Entitic vol] on 09-04-2023 MCV (RBC) [Entitic vol] 89.1 fL 80.0-94.0 [facility] Monocytes Auto (Bld) [#/Vol] on 09-04-2023 Monocytes (Bld) [#/Vol] 0.7 10 3/uL 0.3-0.8 [facility] Monocytes/100 WBC Auto (Bld) on 09-04-2023 Monocytes/100 WBC (Bld) 10.0 % 1.7-12.0 [facility] Neutrophils Auto (Bld) [#/Vo l]on 09-04-2023 Neutrophils (Bld) [#/Vol] 4.0 10 3/uL 1.4-6.5 [facility] Neutrophils/100 WBC Auto (Bl d)on 09-04-2023 Neutrophils/100 WBC (Bld) 58.0 % 43.0-75.0 [facility] No Panel Informationon 09-03 Eosinophils # (Auto) 0.2 10 3/uL 0.0-0.7 [facility] Immature Granulocyte # (Auto) 0.01 10 3/uL 0.00-0.03 [facility] Prostate Specific Antigen Screen 1.90 ng/mL <=4.00 [facility] Platelet mean volume Auto (B ld) [Entitic vol]on 09-04-2023 Platelet mean volume (Bld) [Entitic vol] 9.6 fL 9.5-13.5 [facility] Platelets Auto (Bld) [#/Vol] on 09-04-2023 Platelets (Bld) [#/Vol] 200 10 3/uL 150-450 [facility] RBC Auto (Bld) [#/Vol]on RBC (Bld) [#/Vol] 5.21 10 6/uL 4.70-6.10 [facility] Serum or plasma albumin/glob ulin mass ratioon 09-04-2023 Albumin/Globulin [Mass ratio] 0.9 {ratio} [facility] Serum or plasma anion gap de terminationon 09-04-2023 Anion gap [Moles/Vol] 16.6 mmol/L [facility] Serum or plasma total choles terol/high density lipoprotein (HDL) cholesterol mass rolf 09-04-2023 Cholesterol.total/C holesterol in HDL [Mass ratio] 3.5 {ratio} [facility] Comment on above: 3.3 - 4.4 LOW RISK4. 4 - 7.1 AVERAGE RISK7.1 - 11.0 MODERATE RISK>11.0 HIGH RISK CBC AUTO DIFFon 08-29-2022 BASO # 0.1 103/ul Normal 0.0-0.1 [facility] Comment on above: Performed By: #### C BC #### [facility] [address] [place] [address] Dr. Mj Mendoza Basophils/100 WBC (Bld) 1.6 % Normal 0.2-2.0 [facility] Comment on above: Performed By: #### C BC #### [facility] [address] [place] [address] Dr. Mj Mendoza EO # 0.3 103/ul Normal 0.0-0.7 [facility] Comment on above: Performed By: #### C BC #### [facility] [address] [place] [address] Dr. Mj Mendoza Eosinophils/100 WBC (Bld) 3.9 % Normal 0.9-7.0 [facility] Comment on above: Performed By: #### C BC #### [facility] [address] [place] [address] Dr. Mj Mendoza Erythrocyte distribution width (RBC) [Ratio] 13.9 % Normal 11.0-15.0 [facility] Comment on above: Performed By: #### C BC #### [facility] [address] [place] [address] Dr. Mj Mendoza Hematocrit (Bld) [Volume fraction] 49.6 % Normal 42.0-54.0 [facility] Comment on above: Performed By: #### C BC #### [facility] [address] [place] [address] Dr. Mj Mendoza Hemoglobin (Bld) [Mass/Vol] 16.7 g/dL Normal 14.0-18.0 [facility] Comment on above: Performed By: #### C BC #### [facility] [address] [place] [address] Dr. Mj Mendoza IG # 0.03 10e3/ul Normal 0.00-0.03 [facility] Comment on above: Performed By: #### C BC #### [facility] [address] [place] [address] Dr. Mj Mendoza IG % 0.5 % Normal 0.0-0.5 [facility] Comment on above: Performed By: #### C BC #### [facility] [address] [place] [address] Dr. Mj Mendoza LYMPH # 2.2 103/ul Normal 1.2-3.8 [facility] Comment on above: Performed By: #### C BC #### [facility] [address] [place] [address] Dr. Mj Mendoza Lymphocytes/100 WBC (Bld) 33.9 % Normal 20.5-60.0 [facility] Comment on above: Performed By: #### C BC #### [facility] [address] [place] [address] Dr. Mj Mendoza MANUAL DIFF REQ NO Normal [facility] Comment on above: Performed By: #### C BC #### [facility] [address] [place] [address] Dr. Mj Mendoza MCH (RBC) [Entitic mass] 29.2 pg Normal 25.9-34.0 [facility] Comment on above: Performed By: #### C BC #### [facility] [address] [address] [address] Mj Mendoza MCHC (RBC) [Mass/Vol] 33.7 g/dL Normal 29.9-35.2 [facility] Comment on above: Performed By: #### C BC #### [facility] [address] [address] [address] Mj Mendoza MCV (RBC) [Entitic vol] 86.9 fL Normal 80.0-94.0 [facility] Comment on above: Performed By: #### C BC #### [facility] [address] [address] [address] Mj Mendoza MONO # 0.7 103/ul Normal 0.3-0.8 [facility] Comment on above: Performed By: #### C BC #### [facility] [address] [place] [address] Dr. Mj Mendoza Monocytes/100 WBC (Bld) 10.7 % Normal 1.7-12.0 [facility] Comment on above: Performed By: #### C BC #### [facility] [address] [place] [address] Dr. Mj Mendoza NEUT # 3.1 103/ul Normal 1.4-6.5 [facility] Comment on above: Performed By: #### C BC #### [facility] [address] [place] [address] Dr. Mj Mendoza Neutrophils/100 WBC (Bld) 49.4 % Normal 43.0-75.0 [facility] Comment on above: Performed By: #### C BC #### [facility] [address] [address] [address] Mj Mendoza Platelet mean volume (Bld) [Entitic vol] 8.8 fL Critically low 9.5-13.5 [facility] Comment on above: Performed By: #### C BC #### [facility] [address] [address] [address] Mj Mendoza PLT 193 103/ul Normal 150-450 [facility] Comment on above: Performed By: #### C BC #### [facility] [address] [address] [address] Mj Mendoza RBC 5.71 106/ul Normal 4.70-6.10 [facility] Comment on above: Performed By: #### C BC #### [facility] [address] [address] [address] Mj Mendoza WBC 6.3 103/ul Normal 4.0-11.0 [facility] Comment on above: Performed By: #### C BC #### [facility] [address] [address] [address] Mj Mendoza LIPID PROFILEon 08-29-2022 CHOL-HDL RATIO NORM SEE BELOW Normal [facility] Comment on above: Result Comment: 3.3 - 4.4 LOW RISK 4.4 - 7.1 AVERAGE RISK 7.1 - 11.0 MODERATE RISK >11.0 HIGH RISK Performed By: #### L IPID, ALT, TSH, BMP #### [facility] [address] [address] [address] Mj Mendoza Cholesterol [Mass/Vol] 144 mg/dL Normal <=200 [facility] Comment on above: Performed By: #### L IPID, ALT, TSH, BMP #### [facility] [address] [place] [address] Dr. Mj Mendoza Cholesterol in HDL [Mass/Vol] 36 mg/dL Critically low 40-60 [facility] Comment on above: Performed By: #### L IPID, ALT, TSH, BMP #### [facility] [address] [place] [address] Dr. Mj Mendoza Cholesterol in LDL [Mass/Vol] 71.8 mg/dL Normal [facility] Comment on above: Performed By: #### L IPID, ALT, TSH, BMP #### [facility] [address] [place] [address] Dr. Mj Mendoza Cholesterol.total/C holesterol in HDL [Mass ratio] 4.0 {ratio} Normal [facility] Comment on above: Performed By: #### L IPID, ALT, TSH, BMP #### [facility] [address] [address] [address] Mj Mendoza HDL NORMAL > or = 60 mg/dl - LO W CARDIOVASCULAR RISK <40 mg/dl - HIGH CARDIOVASCULAR RISK Normal [facility] Comment on above: Performed By: #### L IPID, ALT, TSH, BMP #### [facility] [address] [address] [address] Mj Mendoza LDL CALC NORMAL SEE BELOW Normal [facility] Comment on above: Result Comment: <100 mg/dl OPTIMAL 100 - 129 mg/dl NEAR OR ABOVE OPTIMAL 130 - 159 mg/dl BORDERLINE HIGH 160 - 189 mg/dl HIGH >190 mg/dl VERY HIGH Performed By: #### L IPID, ALT, TSH, BMP #### [facility] [address] [address] [address] Mj Mendoza Triglyceride [Mass/Vol] 181 mg/dL Critically high <=150 [facility] Comment on above: Performed By: #### L IPID, ALT, TSH, BMP #### [facility] [address] [address] [address] Mj Mendoza VLDL CALC 36.2 mg/dL Normal [facility] Comment on above: Performed By: #### L IPID, ALT, TSH, BMP #### [facility] [address] [address] [address] Mj Mendoza PROF CHEM 8 (BAS METB)on Anion gap [Moles/Vol] 10.0 mmol/L Normal [facility] Comment on above: Performed By: #### L IPID, ALT, TSH, BMP #### [facility] [address] [address] [address] Mj Mendoza Calcium [Mass/Vol] 9.2 mg/dL Normal 8.5-10.1 [facility] Comment on above: Performed By: #### L IPID, ALT, TSH, BMP #### [facility] [address] [address] [address] Mj Mendoza Chloride [Moles/Vol] 105 mmol/L Normal 98-107 [facility] Comment on above: Performed By: #### L IPID, ALT, TSH, BMP #### [facility] [address] [place] [address] Dr. Mj Mendoza CO2 [Moles/Vol] 27.2 mmol/L Normal 21.0-32.0 [facility] Comment on above: Performed By: #### L IPID, ALT, TSH, BMP #### [facility] [address] [place] [address] Dr. Mj Mnedoza Creatinine [Mass/Vol] 1.67 mg/dL Critically high 0.70-1.30 [facility] Comment on above: Performed By: #### L IPID, ALT, TSH, BMP #### [facility] [address] [place] [address] Dr. Mj Mendoza EGFR-AF AZERBAIJANI 49 mL/min/1.73m2 Critically low >=60 [facility] Comment on above: Performed By: #### L IPID, ALT, TSH, BMP #### [facility] [address] [place] [address] Dr. Mj Mendoza EGFR-NON AF AZERBAIJANI 40 mL/min/1.73m2 Critically low >=60 [facility] Comment on above: Performed By: #### L IPID, ALT, TSH, BMP #### [facility] [address] [place] [address] Dr. Mj Mendoza Glucose [Mass/Vol] 115 mg/dL Critically high 74-106 [facility] Comment on above: Performed By: #### L IPID, ALT, TSH, BMP #### [facility] [address] [place] [address] Dr. Mj Mendoza Potassium [Moles/Vol] 4.2 mmol/L Normal 3.5-5.1 [facility] Comment on above: Performed By: #### L IPID, ALT, TSH, BMP #### [facility] [address] [place] [address] Dr. Mj Mendoza Sodium [Moles/Vol] 138 mmol/L Normal 136-145 [facility] Comment on above: Performed By: #### L IPID, ALT, TSH, BMP #### [facility] [address] [address] [address] Mj Mendoza Urea nitrogen [Mass/Vol] 23.0 mg/dL Critically high 7.0-18.0 [facility] Comment on above: Performed By: #### L IPID, ALT, TSH, BMP #### [facility] [address] [place], [place] [address] Dr. Mj Mendoza Urea nitrogen/Creatinine [Mass ratio] 13.8 mg/mg Normal [facility] Comment on above: Performed By: #### L IPID, ALT, TSH, BMP #### [facility] [address] [address] [address] Mj Mendoza SGPTon 08-29-2022 ALT [Catalytic activity/Vol] 38 U/L Normal 16-63 [facility] Comment on above: Performed By: #### L IPID, ALT, TSH, BMP #### [facility] [address] [place] [address] Dr. [facility] TSH 1.932 uIU/mL Normal 0.358-3.740 [facility] Comment on above: Performed By: #### L IPID, ALT, TSH, BMP #### [facility] [address] [place] [address] ABD/PELVIS WO CONon [...] TAMIKA SANTIZO Date: 2022-05-06 23:26 Normal [facility] CBC AUTO DIFFon 05-06-2022 BASO # 0.1 103/ul Normal 0.0-0.1 [facility] Comment on above: Performed By: #### C BC #### [facility] [address] [place] [address] Dr. Mj Mendoza Basophils/100 WBC (Bld) 0.9 % Normal 0.2-2.0 [facility] Comment on above: Performed By: #### C BC #### [facility] [address] [place] [address] Dr. Mj Mendoza EO # 0.1 103/ul Normal 0.0-0.7 [facility] Comment on above: Performed By: #### C BC #### [facility] [address] [place] [address] Dr. Mj Mendoza Eosinophils/100 WBC (Bld) 1.8 % Normal 0.9-7.0 [facility] Comment on above: Performed By: #### C BC #### [facility] [address] [place] [address] Dr. Mj Mendoza Erythrocyte distribution width (RBC) [Ratio] 14.0 % Normal 11.0-15.0 [facility] Comment on above: Performed By: #### C BC #### [facility] [address] [place] [address] Dr. Mj Mendoza Hematocrit (Bld) [Volume fraction] 47.2 % Normal 42.0-54.0 [facility] Comment on above: Performed By: #### C BC #### [facility] [address] [place] [address] Dr. Mj Mendoza Hemoglobin (Bld) [Mass/Vol] 16.5 g/dL Normal 14.0-18.0 [facility] Comment on above: Performed By: #### C BC #### [facility] [address] [place] [address] Dr. Mj Mendoza IG # 0.01 10e3/ul Normal 0.00-0.03 [facility] Comment on above: Performed By: #### C BC #### [facility] [address] [place] [address] Dr. Mj Mendoza IG % 0.1 % Normal 0.0-0.5 [facility] Comment on above: Performed By: #### C BC #### [facility] [address] [place] [address] Dr. Mj Mendoza LYMPH # 1.8 103/ul Normal 1.2-3.8 [facility] Comment on above: Performed By: #### C BC #### [facility] [address] [place] [address] Dr. Mj Mendoza Lymphocytes/100 WBC (Bld) 23.0 % Normal 20.5-60.0 [facility] Comment on above: Performed By: #### C BC #### [facility] [address] [place] [address] Dr. Mj Mendoza MANUAL DIFF REQ NO Normal [facility] Comment on above: Performed By: #### C BC #### [facility] [address] [place] [address] Dr. Mj Mendoza MCH (RBC) [Entitic mass] 29.8 pg Normal 25.9-34.0 [facility] Comment on above: Performed By: #### C BC #### [facility] [address] [place] [address] Dr. Mj Mendoza MCHC (RBC) [Mass/Vol] 35.0 g/dL Normal 29.9-35.2 [facility] Comment on above: Performed By: #### C BC #### [facility] [address] [place] [address] Dr. Mj Mendoza MCV (RBC) [Entitic vol] 85.2 fL Normal 80.0-94.0 [facility] Comment on above: Performed By: #### C BC #### [facility] [address] [place] [address] Dr. Mj Mendoza MONO # 0.7 103/ul Normal 0.3-0.8 [facility] Comment on above: Performed By: #### C BC #### [facility] [address] [place] [address] Dr. Mj Mendoza Monocytes/100 WBC (Bld) 8.5 % Normal 1.7-12.0 [facility] Comment on above: Performed By: #### C BC #### [facility] [address] [place] [address] Dr. Mj Mendoza NEUT # 5.1 103/ul Normal 1.4-6.5 [facility] Comment on above: Performed By: #### C BC #### [facility] [address] [address] [address] Mj Mendoza Neutrophils/100 WBC (Bld) 65.7 % Normal 43.0-75.0 [facility] Comment on above: Performed By: #### C BC #### [facility] [address] [place] [address] Dr. Mj Mendoza Platelet mean volume (Bld) [Entitic vol] 9.1 fL Critically low 9.5-13.5 [facility] Comment on above: Performed By: #### C BC #### [facility] [address] [place] [address] Dr. Mj Mendoza PLT 195 103/ul Normal 150-450 [facility] Comment on above: Performed By: #### C BC #### [facility] [address] [place] [address] Dr. Mj Mendoza RBC 5.54 106/ul Normal 4.70-6.10 [facility] Comment on above: Performed By: #### C BC #### [facility] [address] [place] [address] Dr. Mj Mendoza WBC 7.8 103/ul Normal 4.0-11.0 [facility] Comment on above: Performed By: #### C BC #### [facility] [address] [place] [address] Dr. Mj Mendoza ER URINE PROFILEon 2 Bilirubin Ql (U) Negative Normal NEGATIVE [facility] Comment on above: Performed By: #### U MICRO, ERUR #### [facility] [address] [place] [address] Dr. Mj Mendoza Clarity (U) CLEAR Normal CLEAR [facility] Comment on above: Performed By: #### U MICRO, ERUR #### [facility] [address] [place] [address] Dr. Mj Mendoza Color (U) YELLOW Normal YELLOW [facility] Comment on above: Performed By: #### U MICRO, ERUR #### [facility] [address] [address] [address] Mj PHOENIX A micrscopic examina tion will be performed if indicated. Normal [facility] Comment on above: Performed By: #### U MICRO, ERUR #### [facility] [address] [place] [address] Dr. Mj Mendoza Glucose Ql (U) Negative Normal NEGATIVE [facility] Comment on above: Performed By: #### U MICRO, ERUR #### [facility] [address] [address] [address] Mj Mendoza Hemoglobin Ql (U) MODERATE Abnormal NEGATIVE [facility] Comment on above: Performed By: #### U MICRO, ERUR #### [facility] [address] [place] [address] Dr. Mj Mendoza Ketones Ql (U) Negative Normal NEGATIVE [facility] Comment on above: Performed By: #### U MICRO, ERUR #### [facility] [address] [place] [address] Dr. Mj Mendoza LEUKOCYTES Negative Normal NEGATIVE [facility] Comment on above: Performed By: #### U MICRO, ERUR #### [facility] [address] [address] [address] Mj Mendoza Nitrite Ql (U) Negative Normal NEGATIVE [facility] Comment on above: Performed By: #### U MICRO, ERUR #### [facility] [address] [place] [address] Dr. Mj Mendoza pH (U) 5.0 [pH] Normal 5-9 [facility] Comment on above: Performed By: #### U MICRO, ERUR #### [facility] [address] [place] [address] Dr. Mj Mendoza SPEC GRAVITY >=1.030 Abnormal 1.005-<=1.025 [facility] Comment on above: Performed By: #### U MICRO, ERUR #### [facility] [address] [place] [address] Dr. Mj Mendoza UA PROTEIN TRACE Normal NEGATIVE/ TRACE [facility] Comment on above: Performed By: #### U MICRO, ERUR #### [facility] [address] [place] [address] Dr. Mj Mendoza UR MICRO IND INDICATED Normal [facility] Comment on above: Performed By: #### U MICRO, ERUR #### [facility] [address] [place] [address] Dr. Mj Mendoza Urobilinogen Qn (U) 0.2 {Mic'U}/dL Normal 0.2 - 1. 0 [facility] Comment on above: Performed By: #### U MICRO, ERUR #### [facility] [address] [place] [address] Dr. Mj Mendoza PROF 14(COMP METB)on 022 Albumin [Mass/Vol] 3.7 g/dL Normal 3.4-5.0 [facility] Comment on above: Performed By: #### C MP #### [facility] [address] [place] [address] Dr. Mj Mendoza Albumin/Globulin [Mass ratio] 1.0 {ratio} Normal [facility] Comment on above: Performed By: #### C MP #### [facility] [address] [place] [address] Dr. Mj Mendoza ALP [Catalytic activity/Vol] 135 U/L Critically high 46-116 [facility] Comment on above: Performed By: #### C MP #### [facility] [address] [place] [address] Dr. Mj Mendoza ALT [Catalytic activity/Vol] 47 U/L Normal 16-63 [facility] Comment on above: Performed By: #### C MP #### [facility] [address] [place] [address] Dr. Mj Mendoza Anion gap [Moles/Vol] 12.7 mmol/L Normal [facility] Comment on above: Performed By: #### C MP #### [facility] [address] [place] [address] Dr. Mj Mendoza AST [Catalytic activity/Vol] 22 U/L Normal 15-37 [facility] Comment on above: Performed By: #### C MP #### [facility] [address] [address] [address] Mj Mendoza Bilirubin [Mass/Vol] 0.7 mg/dL Normal 0.2-1.0 [facility] Comment on above: Performed By: #### C MP #### [facility] [address] [address] [address] Mj Mendoza Calcium [Mass/Vol] 9.0 mg/dL Normal 8.5-10.1 [facility] Comment on above: Performed By: #### C MP #### [facility] [address] [address] [address] Mj Mendoza Chloride [Moles/Vol] 103 mmol/L Normal 98-107 [facility] Comment on above: Performed By: #### C MP #### [facility] [address] [address] [address] Mj Mendoza CO2 [Moles/Vol] 23.1 mmol/L Normal 21.0-32.0 [facility] Comment on above: Performed By: #### C MP #### [facility] [address] [address] [address] Mj Mendoza Creatinine [Mass/Vol] 1.79 mg/dL Critically high 0.70-1.30 [facility] Comment on above: Performed By: #### C MP #### [facility] [address] [address] [address] Mj Mendoza EGFR-AF AZERBAIJANI 45 mL/min/1.73m2 Critically low >=60 [facility] Comment on above: Performed By: #### C MP #### [facility] [address] [address] [address] Mj Mendoza EGFR-NON AF AZERBAIJANI 37 mL/min/1.73m2 Critically low >=60 [facility] Comment on above: Performed By: #### C MP #### [facility] [address] [address] [address] Mj Mendoza Globulin (S) [Mass/Vol] 3.8 g/dL Normal [facility] Comment on above: Performed By: #### C MP #### [facility] [address] [address] [address] Mj Mendoza Glucose [Mass/Vol] 162 mg/dL Critically high 74-106 [facility] Comment on above: Performed By: #### C MP #### [facility] [address] [address] [address] Mj Mendoza Potassium [Moles/Vol] 3.8 mmol/L Normal 3.5-5.1 [facility] Comment on above: Performed By: #### C MP #### [facility] [address] [place] [address] Dr. Mj Mendoza Protein [Mass/Vol] 7.5 g/dL Normal 6.4-8.2 [facility] Comment on above: Performed By: #### C MP #### [facility] [address] [place] [address] Dr. Mj Mendoza Sodium [Moles/Vol] 135 mmol/L Critically low 136-145 [facility] Comment on above: Performed By: #### C MP #### [facility] [address] [place] [address] Dr. Mj Mendoza Urea nitrogen [Mass/Vol] 23.0 mg/dL Critically high 7.0-18.0 [facility] Comment on above: Performed By: #### C MP #### [facility] [address] [place] [address] Dr. Mj Mendoza Urea nitrogen/Creatinine [Mass ratio] 12.8 mg/mg Normal [facility] Comment on above: Performed By: #### C MP #### [facility] [address] [place] [address] Dr. Mj Mendoza URINE MICROSCOPIC ONLYon BACTERIA NONE SEEN Normal NONE SEEN [facility] Comment on above: Performed By: #### U MICRO, ERUR #### [facility] [address] [place] [address] Dr. Mj Mendoza Bacteria identified Cx Nom (U) NOT INDICATED Normal [facility] Comment on above: Performed By: #### U MICRO, ERUR #### [facility] [address] [place] [address] Dr. Mj Mendoza CAST NONE SEEN Normal NONE SEEN [facility] Comment on above: Performed By: #### U MICRO, ERUR #### [facility] [address] [address] [address] Mj Mendoza Crystals LM Nom (Urine sed) NONE SEEN Normal NONE SEEN [facility] Comment on above: Performed By: #### U MICRO, ERUR #### [facility] [address] [address] [address] Mj Mendoza Epithelial cells LM Ql (Urine sed) FEW Abnormal NONE SEEN /RARE [facility] Comment on above: Performed By: #### U MICRO, ERUR #### [facility] [address] [address] [address] Mj Mendoza MUCOUS TRACE Abnormal NONE SEEN [facility] Comment on above: Performed By: #### U MICRO, ERUR #### [facility] [address] [place] [address] Dr. Mj Mendoza RBC 2-5 Abnormal 0-2 [facility] Comment on above: Performed By: #### U MICRO, ERUR #### [facility] [address] [address] [address] Mj Mendoza WBC NONE SEEN Normal NONE SEEN [facility] Comment on above: Performed By: #### U MICRO, ERUR #### [facility] [address] [place] [address] Dr. Mj Mendoza Vital Signs Date Time Vital Sign Value Performing Clinician Facility 09-16-2024 [id number] Body height 182.[address] [facility] 09-16-2024 09:32-0400 Body mass index (BMI) [Ratio] 27.4 kg/m2 [facility] 09-16-2024 09:32-0400 Body weight 91.[address] [facility] 09-16-2024 09:32-0400 Diastolic blood pressure 89 mm[Hg] [facility] 09-16-2024 09:32-0400 Heart rate 56 /min [facility] 09-16-2024 09:32-0400 Respiratory rate 12 /min [facility] 09-16-2024 09:32-0400 Systolic blood pressure 139 mm[Hg] [facility] 05-07-2024 09:33-0500 Body height 182.[address] [facility] 05-07-2024 09:33-0500 Body mass index (BMI) [Ratio] 27.1 kg/m2 [facility] 05-07-2024 09:33-0500 Body weight 90.[address] [facility] 05-07-2024 09:33-0500 Diastolic blood pressure 84 mm[Hg] [facility] 05-07-2024 09:33-0500 Heart rate 88 /min [facility] 05-07-2024 09:33-0500 Respiratory rate 12 /min [facility] 05-07-2024 09:33-0500 Systolic blood pressure 134 mm[Hg] [facility] 02-26-2024 09:40-0400 Body height 182.[address] [facility] 02-26-2024 09:40-0400 Body mass index (BMI) [Ratio] 27.4 kg/m2 [facility] 02-26-2024 09:40-0400 Body weight 91.[address] [facility] 02-26-2024 09:40-0400 Diastolic blood pressure 82 mm[Hg] [facility] 02-26-2024 09:40-0400 Heart rate 56 /min [facility] 02-26-2024 09:40-0400 Respiratory rate 12 /min [facility] 02-26-2024 09:40-0400 Systolic blood pressure 165 mm[Hg] [facility] 09-10-2023 09:36-0400 Body height 182.[address] [facility] 09-10-2023 09:36-0400 Body mass index (BMI) [Ratio] 27.3 kg/m2 [facility] 09-10-2023 09:36-0400 Body weight 91.[address] [facility] 09-10-2023 09:36-0400 Diastolic blood pressure 80 mm[Hg] [facility] 09-10-2023 09:36-0400 Heart rate 57 /min [facility] 09-10-2023 09:36-0400 Respiratory rate 12 /min [facility] 09-10-2023 09:36-0400 Systolic blood pressure 130 mm[Hg] [facility] 03-26-2023 15:00-0400 Body height 182.88 cm Jacob Ball Other [facility] Other 03-26-2023 15:00-0400 Body mass index (BMI) [Ratio] 27.61 kg/m2 Jacob Ball Other [facility] 03-26-2023 15:00-0400 Body weight 92.35 kg Jacob Ball Other [facility] 03-26-2023 15:00-0400 Diastolic blood pressure 70 mm[Hg] Jacob Ball Other [facility] 03-26-2023 15:00-0400 Respiratory rate 12 /min Jacob Ball Other [facility] 03-26-2023 15:00-0400 Systolic blood pressure 133 mm[Hg] Jacob Ball Other [facility] 03-06-2023 10:30-0400 Body height 182.88 cm Jacob Ball Other [facility] 03-06-2023 10:30-0400 Body mass index (BMI) [Ratio] 27.31 kg/m2 Jacob Ball Other [facility] 03-06-2023 10:30-0400 Body weight 91.36 kg Jacob Ball Other [facility] 03-06-2023 10:30-0400 Diastolic blood pressure 90 mm[Hg] Jacob Ball Other [facility] 03-06-2023 10:30-0400 Respiratory rate 12 /min Jacob Ball Other [facility] 03-06-2023 10:30-0400 Systolic blood pressure 145 mm[Hg] Jacob Ball Other [facility] 09-05-2022 14:30-0400 Body height 182.88 cm Jacob Ball Other [facility] 09-05-2022 14:30-0400 Body mass index (BMI) [Ratio] 28.1 kg/m2 Jacob Ball Other [facility] 09-05-2022 14:30-0400 Body weight 93.99 kg Jacob Ball Other [facility] 09-05-2022 14:30-0400 Diastolic blood pressure 98 mm[Hg] Jacob Ball Other [facility] 09-05-2022 14:30-0400 Respiratory rate 12 /min Jacob Ball Other [facility] 09-05-2022 14:30-0400 Systolic blood pressure 164 mm[Hg] Jacob Ball Other [facility] Other Encounters Encounter Date Encounter Type Care Provider Facility Start: 09-16-2024 End: 09-16-2024 ambulatory [facility] Work Phone: Start: 09-16-2024 End: 09-16-2024 Patient encounter procedure [facility] Work Phone: Start: 09-12-2024 Non-patient / Non-visit [facility] [employer] Work Phone: Start: 05-07-2024 End: 05-07-2024 ambulatory [facility] Work Phone: Start: 05-07-2024 End: 05-07-2024 [facility] encounter [facility] Work Phone: Start: 05-05-2024 Non-patient / Non-visit [facility] Work Phone: Start: 05-05-2024 Non-patient / Non-visit [facility] Work Phone: Start: 02-26-2024 End: 02-26-2024 ambulatory [facility] Work Phone: Start: 02-26-2024 End: 02-26-2024 Patient encounter procedure [facility] Work Phone: Start: 02-20-2024 Non-patient / Non-visit [facility] Work Phone: Start: 09-10-2023 End: 09-10-2023 ambulatory [facility] Work Phone: Start: 09-10-2023 End: 09-10-2023 Patient encounter procedure [facility] Work Phone: Start: 09-04-2023 Non-patient / Non-visit [facility] Work Phone: Start: 09-03-2023 Non-patient / Non-visit [facility] Work Phone: Start: 06-19-2023 End: 06-19-2023 ambulatory Jacob Hook Other [facility] Start: 06-19-2023 Telephone encounter Jacob Hook [facility] Start: 04-24-2023 End: 04-24-2023 ambulatory Jacob Hook Other [facility] Start: 04-24-2023 Telephone encounter Jacob [facility] Start: 04-13-2023 End: 04-13-2023 ambulatory Jacob Hook Other [facility] Start: 04-13-2023 Nursing evaluation o f patient and report Jacob Hook [facility] Start: 03-26-2023 End: 03-26-2023 ambulatory Jacob Hook Other [facility] Start: 03-26-2023 Office outpatient vi sit 15 minutes Jacob Hook [facility] Start: 03-06-2023 End: 03-06-2023 ambulatory Jacob Hook Other [facility] Start: 03-06-2023 Office outpatient vi sit 25 minutes Jacob Hook [facility] Start: 12-13-2022 End: 12-13-2022 ambulatory Jacob Wild Other [facility] Start: 12-13-2022 Telephone encounter Jacob [facility] Start: 09-05-2022 End: 09-05-2022 ambulatory Jacob Hook Other [facility] Start: 09-05-2022 Patient encounter procedure Jacob Hook [facility] Start: 08-29-2022 End: 08-30-[address] JACOB HOOK Facility:[facility] Start: 08-27-2022 End: 08-27-2022 ambulatory Jacob Wild Other [facility] Start: 08-27-2022 Telephone encounter Jacob Wild [facility] Start: 05-06-2022 End: 05-07-[address] JACOB HOOK Facility:[facility] Procedures Date Procedure Procedure Detail Performing Clinician Start: 08-29-[address] ELI [facility] [place] Comment on above: Performed By: #### U MICRO, ERUR #### [facility] [address] [place] [address] Dr. Mj Mendoza Plan of Treatment Date Care Activity Detail Author XR Chest 2 Views [facility] Immunizations Immunization Date Immunization Notes Care Provider Fa jason 02-26-2024 influenza, high dose seasonal, preservative-free [facility] 04-13-2023 influenza, high dose seasonal, preservative-free Jacob Hook Other [facility] Other 04-13-2023 influenza virus vaccine, unspecified formulation [facility] 06-23-2022 zoster vaccine recombinant Jacob Hook Other [facility] 03-21-2022 COVID-19 Moderna (BIvalent) Jacob Hook Other [facility] 03-06-2022 influenza virus vaccine, split virus (incl. purified surface antigen) Jacob Hook Other [facility] Other 03-06-2022 influenza virus vaccine, unspecified formulation [facility] 02-24-2022 influenza, high dose seasonal, preservative-free Jacob Hook Other [facility] Other 02-24-2022 influenza virus vaccine, unspecified formulation [facility] 09-26-2021 COVID-19 Vaccine Moderna - Documentation Purposes Only Jacob Hook Other [facility] 04-19-2021 COVID-19 Vaccine Moderna - Documentation Purposes Only Jacob Hook Other [facility] 03-04-2021 influenza virus vaccine, split virus (incl. purified surface antigen) Jacob Hook Other [facility] 03-04-2021 influenza virus vaccine, unspecified formulation [facility] 09-08-2020 COVID-19 Vaccine Moderna - Documentation Purposes Only Jacob Hook Other [facility] 08-12-2020 COVID-19 Vaccine Moderna - Documentation Purposes Only Jacob Hook Other [facility] 03-23-2020 influenza virus vaccine, split virus (incl. purified surface antigen) Jacob Hook Other [facility] Other 03-23-2020 influenza virus vaccine, unspecified formulation [facility] 04-10-2019 influenza virus vaccine, split virus (incl. purified surface antigen) Jacob Hook Other [facility] 04-10-2019 influenza virus vaccine, unspecified formulation [facility] 03-27-2018 influenza virus vaccine, split virus (incl. purified surface antigen) Jacob Hook Other [facility] Other 03-27-2018 influenza virus vaccine, unspecified formulation [facility] 04-19-2017 influenza virus vaccine, split virus (incl. purified surface antigen) Jacob Hook Other [facility] Other 04-19-2017 influenza virus vaccine, unspecified formulation [facility] 05-02-2016 influenza virus vaccine, split virus (incl. purified surface antigen) Jacob Hook Other [facility] Other 05-02-2016 influenza virus vaccine, unspecified formulation [facility] 06-08-2015 diphtheria, tetanus toxoids and acellular pertussis vaccine, unspecified formulation Jacob Hook Other [facility] 06-08-2015 pneumococcal conjuga te vaccine, 13 valent Jacob Wild Other [facility] 03-18-2015 influenza virus vaccine, split virus (incl. purified surface antigen) Jacob Hook Other [facility] Other 03-18-2015 influenza virus vaccine, unspecified formulation [facility] 04-15-2014 influenza virus vaccine, split virus (incl. purified surface antigen) Jacob Wild Other [facility] 04-15-2014 influenza virus vaccine, unspecified formulation [facility] 04-22-2013 pneumococcal conjuga te vaccine, 7 valent Jacob Hook Other [facility] Other 04-22-2013 pneumococcal Conjuga te, unspecified formulation [facility] 04-11-2013 pneumococcal polysaccharide vaccine, 23 valent Jacob Hook Other [facility] 04-11-2013 tetanus and diphther ia toxoids, adsorbed, preservative free, for adult use (5 Lf of tetanus toxoid and 2 Lf of diphtheria toxoid) Jacob Hook Other [facility] 05-21-2012 zoster vaccine, live Sanju Hook Other [facility] Payers Date Payer Category Payer Medicare [id number] 1958 Unknown [id number] 1945 Unknown [id number] 1945 Unknown [id number] Unknown Regular Insurance [id number] Social History Date Type Detail Facility Sex Assigned At [facility] Other Start: 09-03-2023 End: 09-16-2024 Tobacco smoking status NHIS Never smoked tobacco (finding) [facility] Start: 1945 Sex Assigned At Male F [facility] Start: 05-07-2024 End: 09-16-2024 Sex Male (finding) [facility] Clinical Notes 08-27-2022 to 02-26-2024 Note [...] 9:23am ASHD (arteriosclerotic heart disease) acute May 07 024 9:23am Primary hypertension acute 2023 9:23am Stage 3b chronic kidney disease acute May 07 024 9:23am [facility] Work Phone: 1(421) 821-180301-02-2024 Evaluation note* Encounter Date Diagnosis Assessment Notes Treatment Notes Treatment Clinical Notes Jun, Elevated cholesterol (ICD-10 - E78.00) [facility] 11-07-2023 Evaluation note* Encounter Date Diagnosis Assessment Notes Treatment Notes Treatment Clinical Notes Apr, Autoimmune thyroiditis (ICD-10 - E06.3) [facility] 10-09-2023 Evaluation note* Encounter Date Diagnosis Assessment Notes Treatment Notes Treatment Clinical Notes Mar, Acute non-recurrent maxillary sinusitis (ICD-10 - J01.00) Instructed to use Robitussin or Mucinex for cough, saline or Flonase NS for congestion, Tylenol for pain and fever. Mar, Impacted cerumen of right ear (ICD-10 - H61.21) Debrox q HS Irrigate clear on Sunday if desires. Avoid use of QTip [facility] 09-19-2023 Evaluation note* Encounter Date Diagnosis [...] and SONDRA Feb, Nocturia (ICD-10 - R35.1) [facility] 06-28-2023 Evaluation note* Encounter Date Diagnosis Assessment Notes Treatment Notes Treatment Clinical Notes Nov, Primary hypertension (ICD-10 - I10) [facility] 03-21-2023 Evaluation note* Encounter Date Diagnosis [...] and exercise. Reviewed age-appropriate preventive testing recommended. [facility] 03-12-2023 Evaluation note* Encounter Date Diagnosis [...] High risk medication use (ICD-10 - Z79.899) [facility] Evaluation noteNo InformationNort [employer] Other Evaluation note* Diagnosis Onset Date Resolution Status ASHD (arteriosclerotic heart disease) acute GERD (gastroesophageal reflux disease) acute Hypothyroid acute Primary hypertension acute Screening PSA (prostate specific antigen) acute Stage 3b chronic kidney disease acute Medicare annual wellness visit, subsequent noneactive [facility] Work Phone: Evaluation note* Diagnosis Onset Date Resolution Status ASHD (arteriosclerotic heart disease) acute GERD (gastroesophageal reflux disease) acute Hypothyroid acute Primary hypertension acute Stage 3b chronic kidney disease acute Rotator cuff strain noneacti ve [facility] Work Phone: Evaluation note* Diagnosis Onset Date Resolution Status Admit Date Abdominal pain acute September 16, 2024 9:15am Acute bronchitis due to othe r specified organisms acute September 16, 025 9:15am Acute cholecystitis with chronic cholecystitis acute September 16, 2024 9:15am ASHD (arteriosclerotic heart disease) acute September 16, 2024 9:15am GERD (gastroesophageal reflu x disease) acute September 16, 2024 9:15am Hypothyroid acute September 16 9:15am Primary hypertension acute Apri 2024 9:15am Screening PSA (prostate specific antigen) acute September 16 9:15am Stage 3b chronic kidney disease acute September 16, 2024 9:15am Medicare annual wellness visit, subsequent noneactive September 16 9:15am [facility] Work Phone: History general Narrative - [...] COLONOSCOPY 2019 Hospitalization History SEE SURGICAL HX [facility] Other Summary Purpose Family History No Family [...] 2024 9:23am ASHD (arteriosclerotic heart disease) No vember 2023 9:23am Primary hypertension May 07, 2024 9:23am Stage 3b chronic kidney disease May 07, 2024 9:23am Chief Complaint Admit Date Wellness September 16, 2024 9:15 am Reason for Visit Admit Date Abdominal pain September 16, 2024 9:15 am Acute bronchitis due to other specified organisms September 16, 2024 9:15am Acute cholecystitis with chronic cholecy stitis September 16, 2024 9:15am ASHD (arteriosclerotic heart disease) Ap ril 2024 9:15am GERD (gastroesophageal reflux disease) A pril 2024 9:15am Hypothyroid September 16, 2024 9:15 am Primary hypertension September 16, 2024 9:1 5am Screening PSA (prostate specific antigen ) September 16, 2024 9:15am Stage 3b chronic kidney disease September 9:15am Medicare annual wellness visit, subseque nt September 16, 2024 9:15am Additional Source Comments (unrecognized sect ion and content) No Status Records Found INFORMATION SOURCE (unrecogn ized section and content) DATE CREATED AUTHOR 09/05/2022 [facility] Anast[facility] REASON FOR VISIT (unrecogniz ed section and content) FLU ShotRIGHT EAR PLUGGED6 m onth [facility] Care Teams (unrecognized sec tion and content) Team Status: Active Member Role Status Dates Jacob Hook DO Primary Care Provider Active Team Status: Active Member Role Status Dates Jacob Ball , DO Primary Care Provider Active Start: September 03, 2023 REENA Rodriguez Attending Provider Active St art: September 03, 2023 Team Status: Active Member Role Status Dates Jacob Hook , DO Primary Care Provide r, Attending Provider Active Start: September 04, 2023 Team Status: Inactive Member Role Status Dates Jacob Hook , DO Primary Care Provide r, Attending Provider Active Start: September 10, 2023 End: September 10, 2023 Team Status: Active Member Role Status Dates Jacob Hook , DO Primary Care Provide r, Attending Provider Active Start: February 20, 2024 Team Status: Inactive Member Role Status Dates Jacob Hook , DO Primary Care Provide r, Attending Provider Active Start: February 26, 2024 End: February 26, 2024 Team Status: Active Member Role Status Dates Jacob Hook , DO Primary Care Provider Active Start: May 05, 2024 Hasmukh Gonzalez , DO Attending Provider Active S tart: May 05, 2024 Team Status: Active Member Role Status Dates Jacob Hook , DO Primary Care Provider Active Start: May 05, 2024 Ora Phillips CMA Attending Provider Active Start: May 05, 2024 Team Status: Inactive Member Role Status Dates Jacob Hook , DO Primary Care Provide r, Attending Provider Active Start: May 07, 2024 End: May 07, 2024 Team Status: Active Member Role Status Dates Jacob Hook , DO Primary Care Provide r, Attending Provider Active Start: September 12, 2024 Team Status: Inactive Member Role Status Dates Jacob Hook , DO Primary Care Provide r, Attending Provider Active Start: September 16, 2024 End: September 16, 2024 Goals (unrecognized section and content) Goals [...] BE BASED ON THE PRIMARY CLINICAL RECORDS. [facility] provides no warranty or guarantee of the accuracy or completeness of information in this document.
[2025-02-24 11:59] LABS: Anion Gap 14.1; Blood Urea Nitrogen 35.0 mg/dL (7.0-18.0); Calcium 8.8 mg/dL (8.5-10.1); Carbon Dioxide 24.5 mmol/L (21.0-32.0); Chloride 106 mmol/L (98-107); Estimated GFR (African America 42 (>=60 mL/min/1.73m^2); Estimated GFR (Non-African Ame 34 (>=60 mL/min/1.73m^2); Glucose 99 mg/dL (74-106); Potassium 4.6 mmol/L (3.5-5.1); Sodium 140 mmol/L (136-145)
[2025-02-24 13:15] LABS: Microalbum Creatinine Ratio Ur 21.7 mg/g (0.0-29.9)
== END 2025-02-24 10:43 | disposition home or self-care (01) ==
LOC: LAB 10:46
PROVIDERS: PCP Internal Medicine; Visit Provider Internal Medicine
DX: N18.32 Chronic kidney disease, stage 3b (principal)
CPT/HCPCS: 36415; 80048; 82043; 82570